=== PATIENT | male | born 1975 | race Two or more races ===

== ENCOUNTER 2023-03-29 19:54 | Observation (INO) ==
--- NOTE | 2023-03-29 20:54 | Emergency Department Note ---
Impression & Plan Encephalopathy, Chest pain, Depression, Anxiety ED Provider Note NAME: BI MENDIOLA AGE: 48 SEX: M : 1975 ARRIVES VIA: Ambulance INFORMANT: Patient, ED PROVIDER(S): John Anne MD CHIEF COMPLAINT: Outpatient referral MEDICAL DECISION MAKING: I had seen the patient earlier in the day for chest pain but the patient was sent back due to concern for disorientation. Patient already had blood work completed earlier today or today so CT of the head was obtained along with urinalysis. CT head is negative. Repeat blood work was not obtained at this time but an IV was established and the patient just had blood work completed during his most recent visit from earlier today. I did speak with the psychiatric facility at the [facility] and spoke with the charge nurse Jai explained that the physician onsite was not comfortable with taking care of the patient at this time given this reported disorientation. Discussion with the family states that he has been like this for 2 weeks and had a negative CT scan at [facility] prior to his transfer to the [facility]. Given the outside facilities inability to care for the patient for his mental wellness disease at this time I did speak with the on-call hospital service Dr. Plasencia the patient was admitted to the medicine service. Discussion w/ other healthcare providers: Dr. Plasencia inpatient medicine Prior /Outside records reviewed: I reviewed a psychiatry transfer form so that the patient's has a history of type 2 diabetes is disoriented concern for incontinence of stool. Referring physician was Dr. Macias. Differential diagnosis: Infection, dehydration, metabolic abnormality, hypo/hyperglycemia, electrolyte imbalance, anemia, UTI, pneumonia, thyroid dysfunction among others were considered. Diagnostics, as interpreted by me: ECG: None Cardiac monitoring: An order was placed for continuous cardiac monitoring. The monitor shows a rate of 95 with sinus rhythm. Patient was placed on pulse oximetry Medical decision rules: None Imaging studies: I informally interpreted the patient's CT head which does not show obvious ICH with formal report to follow. HPI: Patient presents due to concern for reported disorientation. I did obtain additional history from the charge nurse at the [facility] who stated that the on- call physician onsite thought the patient was disoriented and potentially has some slurred speech. I did discuss this with the family at bedside patient is able to answer all questions appropriately and states that this is a sister at the bedside which is correct. She states that he has been acting this way for approximately 2 weeks in duration ever since he was started on sertraline. Patient reportedly not taken this in several days though. No history of TIA or stroke. Patient does not use any alcohol or tobacco. Patient is currently voluntary 201 at the [facility] he was seen earlier today for chest pain was recently diagnosed with flu. Patient reportedly had been incontinent of stool upon returning to facility. Patient denies any back pain no numbness or tingling. PAST MEDICAL HISTORY: See Below PAST SURGICAL HISTORY: See Below SOCIAL HISTORY: See Below HOME MEDICATIONS: See Below ALLERGIES: See Below VITALS: See Below PHYSICAL EXAMINATION: GENERAL: NAD, non-toxic. Wearing glasses EYE EXAM: Normal conjunctiva. PERRL, no anisocoria and EOM's grossly intact w/o pain. OROPHARYNX: Moist mucus membranes, grossly normal dentition. NECK: Supple, no nuchal rigidity, no adenopathy, non-tender. No signs of meningismus. FROM of the neck with good chin to chest and neck extension. No stridor. LUNGS: Clear to auscultation. Normal chest wall mechanics. HEART: NSR, no MRG. ABDOMEN: Abdomen soft, non-tender, no masses, no rebound or guarding. BACK: No CVA TTP. SKIN: No rashes and no bruising. UPPER EXTREMITIES: Upper extremities are grossly normal. LOWER EXTREMITIES: Grossly normal, no edema. NEURO EXAM: A&O x3, cranial nerves II-XII grossly intact, normal speech, moves all 4 extremities. Good [id number], no drift and no sensory deficits. Past Med/Surg History Medical History Anxiety Depression Social History Smoking Status: Current every day smoker Tobacco Type: Cigarettes Hx Alcohol Use: No Hx Substance Use: Yes Substance Use Type Other:: current medical marijuana, former heroin user Preferred Language: Persian Communication Ability: Impaired Communication Ability Comment: Garbled speech Communication Tools: Facial Expression, Writing Tablet and Physical Gestures Peace Officer Required: Yes Beliefs That Will Affect Care: None Current Living Situation: Other Current Living Situation Comment: in trailer, with roommates Feels Safe at Home: Yes Assistive Devices: None Allergies Allergies Allergy/AdvReac Type Severity Reaction Status Date / Time risperidone Allergy Intermediate Hives Verified 03/29/23 22:35 lactose Allergy Unknown Verified 03/29/23 22:35 sertraline AdvReac Intermediate confusion Verified 03/30/23 01:37 Home Meds Home Medications Medication Instructions Recorded Confirmed buspirone 10 mg tablet 10 mg PO TID 03/29/23 03/29/23 metformin 500 mg tablet,extended 500 mg PO AMHS 03/29/23 03/29/23 release 24 hr pantoprazole 40 mg tablet,delayed 40 mg PO DAILY 03/29/23 03/29/23 release Previous Rx's Medication Instructions Recorded lisinopril 10 mg tablet 10 mg PO QAM 30 days #30 tabs 03/31/23 lorazepam 1 mg tablet 1 mg PO Q8 PRN Anxiety 5 days #15 03/31/23 tabs Results & Data (ED) Vital Signs Vital Signs - 24 hr 03/29/23 20:26 Temperature 36.7 C Temperature Source Temporal Artery Scan Pulse Rate 103 H Respiratory Rate 18 Respiratory Depth Normal Blood Pressure 155/102 H Blood Pressure Mean 119 Pulse Oximetry 95 Oxygen Delivery Method Room Air Sepsis Recent Fever Within 48 Hours No Sepsis New/Unexplained Change in Mental Status No Sepsis Action Taken by Nursing No Action Required Home Medications Current Medication List: was personally reviewed by me Laboratory Data Attestation: I reviewed the patient's lab results. 03/30/23 04:14 03/30/23 04:14 Lab Results 03/29/23 Range/Units 23:02 Magnesium 2.0 (1.7-2.4) mg/dl Ammonia 49.0 (18-72) umol/L Triglycerides 227 H (0-150) mg/dl Cholesterol 133 (0-200) mg/dl LDL Cholesterol, Calc 69 mg/dl VLDL Cholesterol, Calc 45 H (0-30) mg/dl HDL Cholesterol 19 mg/dl Cholesterol/HDL Ratio 7.0 H (0-5) TSH 1.986 (0.300-4.500) uIu/ml Administered Medications Discontinued Medications Acetaminophen (Acetaminophen 325 Mg Tab) 650 mg PO NOW STA Stop: 03/30/23 00:54 Last Admin: 03/30/23 01:52 Dose: 650 mg Documented By: WILMA Alprazolam (Alprazolam 0.5 Mg Tablet) 0.5 mg PO Q8H PRN PRN Reason: Anxiety/Agitation Stop: 04/30/23 12:48 Last Admin: 03/31/23 15:46 Dose: 0.5 mg Documented By: MIL Enoxaparin Sodium (Enoxaparin Inj 40 Mg/0.4 Ml Syr) 40 mg SQ QAM ADELINA Stop: 04/29/23 08:59 Last Admin: 03/31/23 08:07 Dose: 40 mg Documented By: Admin: 03/30/23 09:49 Dose: 40 mg Documented By: RAJIV Hydroxyzine HCl (Hydroxyzine Hcl 10 Mg Tab) 10 mg PO NOW STA Stop: 03/30/23 00:50 Last Admin: 03/30/23 01:52 Dose: 10 mg Documented By: WILMA Hydroxyzine HCl (Hydroxyzine Hcl 10 Mg Tab) 10 mg PO QID PRN PRN Reason: Anxiety Stop: 04/29/23 01:02 Last Admin: 03/31/23 11:27 Dose: 10 mg Documented By: MIL Sodium Chloride (Nss) 1,000 mls @ 999 mls/hr IV .Q1H1M ONE Stop: 03/29/23 22:23 Last Infusion: 03/29/23 23:58 Dose: Infused Documented By: Admin: 03/29/23 21:58 Dose: 999 mls/hr Documented By: WILMA Sodium Chloride (Nss) 1,000 mls @ 50 mls/hr IV .Q20H ONE Stop: 03/30/23 21:31 Last Infusion: 03/30/23 16:34 Dose: Infused Documented By: Infusion: 03/30/23 15:02 Dose: 50 mls/hr Documented By: Infusion: 03/30/23 14:32 Dose: 0 mls/hr Documented By: Admin: 03/30/23 01:54 Dose: 50 mls/hr Documented By: WILMA Insulin Aspart (Insulin Aspart Per Unit Charge) 0 units SC ACHS [facility] Stop: 04/29/23 02:28 Last Admin: 03/31/23 13:04 Dose: Not Given Documented By: Admin: 03/31/23 09:12 Dose: 4 units Documented By: MIL Co-signed By: NICCI Admin: 03/30/23 20:40 Dose: Not Given Documented By: Admin: 03/30/23 17:46 Dose: 2 units Documented By: LARA Co-signed By: FELISA Admin: 03/30/23 14:29 Dose: 1 units Documented By: LARA Co-signed By: FELISA Admin: 03/30/23 08:42 Dose: Not Given Documented By: Admin: 03/30/23 03:15 Dose: Not Given Documented By: MAR Co-signed By: MAR(2) Ioversol (Optiray 320 125ml) 125 ml IV ONCE ONE Stop: 03/29/23 23:57 Last Admin: 03/29/23 23:56 Dose: 117 ml Documented By: HARSH Lisinopril (Lisinopril 2.5 Mg Tab) [facility] Stop: 04/29/23 03:04 Last Admin: 03/30/23 04:42 Dose: 2.5 mg Documented By: MAR(2) Lisinopril (Lisinopril 10 Mg Tab) 10 mg [facility] Stop: 04/30/23 08:59 Last Admin: 03/31/23 08:07 Dose: 10 mg Documented By: MIL Melatonin (Melatonin 3 Mg Tab) 3 mg PO HS PRN PRN Reason: Sleep Stop: 04/29/23 00:20 Last Admin: 03/30/23 21:24 Dose: 3 mg Documented By: Admin: 03/30/23 02:17 Dose: 3 mg Documented By: WILMA Pantoprazole Sodium (Pantoprazole 40 Mg Tab) 40 mg PO DAILY [facility] Stop: 04/29/23 08:59 Last Admin: 03/31/23 08:07 Dose: 40 mg Documented By: Admin: 03/30/23 08:50 Dose: 40 mg Documented By: RAJIV Imaging Data Radiologist's Impression: Head CT 03/29/23 21:23 Exam(s): CT HEAD Without Contrast EXAM: CT Head Without Intravenous Contrast CLINICAL HISTORY: Reason for exam: disorientation. TECHNIQUE: Axial computed tomography images of the head/brain without intravenous contrast. CTDI is 36.38 mGy and DLP is 625.8 mGy-cm. Automated exposure control was utilized for the study. A dose lowering technique was utilized adhering to the principles of ALARA. COMPARISON: No relevant prior studies available. FINDINGS: No acute intracranial hemorrhage. No midline shift or mass effect. The territorial mohan-white matter differentiation is maintained throughout. The ventricles and sulci are commensurate with age. The visualized orbits appear grossly unremarkable. The calvarium is intact. The visualized paranasal sinuses and mastoid air cells are grossly clear. IMPRESSION: No acute intracranial hemorrhage, midline shift, or mass effect. Electronically signed by: William Weir MD 03/29/23 23:25 PM Abdomen/Pelvis CT 03/29/23 22:47 Exam(s): CT ABDOMEN + PELVIS With Contrast IV Amt: 117 ML OPTIRAY 320 EXAM: CT Abdomen and Pelvis With Intravenous Contrast CLINICAL HISTORY: Reason for exam: abd pain. TECHNIQUE: Axial computed tomography images of the abdomen and pelvis with intravenous contrast. CTDI is 28.14 mGy and DLP is 2371.77 mGy-cm. Automated exposure control was utilized for the study. A dose lowering technique was utilized adhering to the principles of ALARA. CONTRAST: Patient received 117 ML OPTIRAY 320 of IV contrast COMPARISON: No relevant prior studies available. FINDINGS: Lung bases: Unremarkable. No mass. No consolidation. ABDOMEN: Liver: Unremarkable. No mass. Gallbladder and bile ducts: Unremarkable. No calcified stones. No ductal dilation. Pancreas: Unremarkable. No mass. No ductal dilation. Spleen: Unremarkable. No splenomegaly. Adrenals: Unremarkable. No mass. Kidneys and ureters: Unremarkable. No solid mass. No hydronephrosis. Stomach and bowel: Diverticulosis, without acute diverticulitis. No bowel obstruction. PELVIS: Appendix: No findings to suggest acute appendicitis. Bladder: Unremarkable. No mass. Reproductive: Unremarkable as visualized. ABDOMEN and PELVIS: Intraperitoneal space: Unremarkable. No free air. No significant fluid collection. Bones/joints: No acute fracture. No dislocation. Bilateral pars defect at L5. Soft tissues: Small fat-containing bilateral inguinal hernias. Vasculature: Unremarkable. No abdominal aortic aneurysm. Lymph nodes: Unremarkable. No enlarged lymph nodes. IMPRESSION: No acute findings. Electronically signed by: William Weir MD 03/30/23 02:30 AM Chest CTA 03/29/23 23:12 Exam(s): CTA CHEST IV Amt: 117 ML OPTIRAY 320 EXAM: CT Angiography Chest With Intravenous Contrast CLINICAL HISTORY: Reason for exam: intermittent cp, tachycardia. TECHNIQUE: Axial computed tomographic angiography images of the chest with intravenous contrast. CTDI is 28.14 mGy and DLP is 2371.77 mGy-cm. Automated exposure control was utilized for the study. A dose lowering technique was utilized adhering to the principles of ALARA. MIP reconstructed images were created and reviewed. COMPARISON: No relevant prior studies available. FINDINGS: Pulmonary arteries: Unremarkable. No pulmonary embolism. Aorta: No acute findings. No thoracic aortic aneurysm. Lungs: Unremarkable. No mass. No consolidation. Pleural space: Unremarkable. No significant effusion. No pneumothorax. Heart: Unremarkable. No cardiomegaly. No significant pericardial effusion. No evidence of RV dysfunction. Bones/joints: No acute fracture. No dislocation. Soft tissues: Unremarkable. Lymph nodes: Unremarkable. No enlarged lymph nodes. Liver: Hepatic steatosis. IMPRESSION: No acute findings in the visualized arteries of the chest. Electronically signed by: William Weir MD 03/30/23 01:56 AM Brain MRI 03/30/23 00:49 Exam(s): MRI HEAD Without Contrast EXAM: MR Head Without Intravenous Contrast CLINICAL HISTORY: Reason for exam: transient aphasia. TECHNIQUE: Magnetic resonance images of the head/brain without intravenous contrast in multiple planes. COMPARISON: Comparison made to prior head CT from March 29, 2023. FINDINGS: Brain: Unremarkable. No mass. No hemorrhage. No acute infarct. The flow voids at the base of the brain intact. Ventricles: Unremarkable. No ventriculomegaly. Bones/joints: Unremarkable. No acute fracture. Sinuses: Chronic ethmoid sinusitis. No acute sinusitis. Mastoid air cells: Unremarkable as visualized. No mastoid effusion. Orbits: Unremarkable as visualized. IMPRESSION: No evidence of acute intracranial pathology. Electronically signed by: Liliya Nieves MD 03/30/23 02:45 AM Head MRA 03/30/23 00:49 Exam(s): MRA HEAD Without Contrast EXAM: MR Angiography Head Without Intravenous Contrast CLINICAL HISTORY: Reason for exam: transient aphasia. TECHNIQUE: Magnetic resonance angiography images of the head without intravenous contrast. COMPARISON: No relevant prior studies available. FINDINGS: Right internal carotid artery: No acute findings. Intracranial segment is patent with no significant stenosis. No aneurysm. Right anterior cerebral artery: Unremarkable. No occlusion or significant stenosis. No aneurysm. Right middle cerebral artery: Unremarkable. No occlusion or significant stenosis. No aneurysm. Right posterior cerebral artery: Unremarkable. No occlusion or significant stenosis. No aneurysm. Right vertebral artery: Unremarkable as visualized. Left internal carotid artery: No acute findings. Intracranial segment is patent with no significant stenosis. No aneurysm. Left anterior cerebral artery: Unremarkable. No occlusion or significant stenosis. No aneurysm. Left middle cerebral artery: Unremarkable. No occlusion or significant stenosis. No aneurysm. Left posterior cerebral artery: Unremarkable. No occlusion or significant stenosis. No aneurysm. Left vertebral artery: Unremarkable as visualized. Basilar artery: Unremarkable. No occlusion or significant stenosis. No aneurysm. IMPRESSION: Negative MRA of the brain. Electronically signed by: Liliya Nieves MD 03/30/23 02:40 AM Discharge Plan Visit Data Chief Complaint: Illness Stated Complaint: [facility] WANTED HIM SENT BACK ED Provider: John Anne Discharge Problem: Encephalopathy, Chest pain, Depression, Anxiety Patient Disposition: Admitted As Inpatient Discharge Instructions Interventions: ED Discharge Assessment Last Done: 03/30/23 02:28 Discharge Problem: Chest pain Qualifiers: Chest pain type: unspecified Qualified Code(s): R07.9 - Chest pain, unspecified Depression Qualifiers: Depression Type: unspecified Qualified Code(s): F32.A - Depression, unspecified
[2023-03-29] MEDS: SODIUM CHLORIDE 0.9% 1,000 ML IV ONE (21:58)
--- NOTE | 2023-03-29 23:26 | CT Scan Report ---
Exam(s): CT HEAD Without Contrast EXAM: CT Head Without Intravenous Contrast CLINICAL HISTORY: Reason for exam: disorientation. TECHNIQUE: Axial computed tomography images of the head/brain without intravenous contrast. CTDI is 36.38 mGy and DLP is 625.8 mGy-cm. Automated exposure control was utilized for the study. A dose lowering technique was utilized adhering to the principles of ALARA. COMPARISON: No relevant prior studies available. FINDINGS: No acute intracranial hemorrhage. No midline shift or mass effect. The territorial mohan-white matter differentiation is maintained throughout. The ventricles and sulci are commensurate with age. The visualized orbits appear grossly unremarkable. The calvarium is intact. The visualized paranasal sinuses and mastoid air cells are grossly clear. IMPRESSION: No acute intracranial hemorrhage, midline shift, or mass effect. Electronically signed by: William Weir MD 03/29/23 23:25 PM
[2023-03-29 23:51] LABS: Thyroid Stimulating Hormone 1.986 uIu/ml (0.300-4.500)
[2023-03-29] MEDS: OPTIRAY 320 125ml IV ONE (23:56)
--- NOTE | 2023-03-30 00:53 | History & Physical Report ---
Date of Service March 30, 2023 Assessment & Plan (1) Encephalopathy: Plan: Multifactorial: new neuropsychotropic medications (buspirone and sertraline) for mood disorder Uncontrolled hypertension, patient not on maintenance medications Parainfluenza illness Chest pain likely from uncontrolled hypertension and anxiety Diarrheal illness possibly from parainfluenza, home metformin possibly contributory DM 2 on oral medications, suboptimal control as of recent hemoglobin A1c of 7.17 September 2022 HCV status post Rx Subclinical hypothyroidism, TSH noted to be 7.5 from recent [facility] ER visit past history of substance abuse ongoing tobacco abuse OBS Medical telemetry Hold buspirone for now. Patient family adamantly refusing sertraline prescription. Psych consult re: suboptimal anxiety/depression Initiate lisinopril for BP control TTE Re: Chest pain Stool cultures, C. difficile IVF, supportive management for viral illness Basal bolus insulin, ISS BG goal 1 10-1 40, carb count coverage, update hemoglobin A1c Recheck TSH next month Nicotine patch as needed DVT prophylaxis with Lovenox subcu Full code Patient's sister requesting updates providers. Ms. Tammie Maynard, contact #[phone]. Text document was generated using Me-Mover voice recognition software. It may contain grammatical or spelling errors. Kindly contact undersigned for clarification of any documentation item in question. History of Present Illness Chief Complaint: Disorientation as per records Primary Care Provider: Venecia Cabrera PA-C History obtained from patient, family, and records. Medical history significant for hypertension, hyperlipidemia, [place], DM 2 on oral medications, HCV status post Rx, mood disorder, past history of substance abuse, ongoing tobacco abuse. 03/18 Patient seen at PCPs office for worsening depression in the last 3 weeks. Feeling anxious all the time. Patient denies suicidality. Intermittent chest pain and abdominal complaints separate from each other. Watery diarrhea. No fever, no chills. Patient started on sertraline by outpatient provider. 03/19-03/20 Overnight observation at [facility] ER for anxiety/panic attack. TSH noted to be elevated at 7.5. Patient prescribed as needed Ativan prescription. PCP later added BuSpar 3 times daily to regimen after patient requested for additional Ativan prescription. Increased agitation/trouble focusing with new medications as per patient family. Patient's sister attributes problem to sertraline. Patient not being able to get words out. Sertraline discontinued by patient/family. 03/28 Patient directed to [facility] ER by PCP's office for manic behavior, increased agitation/anxiety, not being able to communicate since ER visit a week ago. Cannabis noted on urine drug screen. Parainfluenza noted on viral screen. Patient transferred to the local [facility]. Patient sent to the [facility] ER for evaluation yesterday from the [facility] for chest pain and disorientation complaints. Patient subsequently discharged back to facility. Increased disorientation noted at psychiatric facility. Patient complaining of worsening abdominal pain. SBP 160s, heart rate 110s. Patient brought back to ER for evaluation. Mentation somewhat improved after IV fluids administered at the ER as per sister. Medical History as above Surgical History : Liver biopsy Family History : Cirrhosis, heart disease Personal/Social history : 1 pack daily, occasional EtOH intake, disabled Allergies Allergy/AdvReac Type Severity Reaction Status Date / Time risperidone Allergy Intermediate Hives Verified 03/29/23 22:35 lactose Allergy Unknown Verified 03/29/23 22:35 sertraline AdvReac Intermediate confusion Verified 03/30/23 01:37 Home Medications Medication Instructions Recorded Confirmed Type buspirone 10 mg tablet 10 mg PO TID 03/29/23 03/29/23 History lorazepam 1 mg tablet 1 mg PO Q8 PRN Anxiety 03/29/23 03/29/23 History metformin 500 mg tablet,extended 500 mg PO AMHS 03/29/23 03/29/23 History release 24 hr pantoprazole 40 mg tablet,delayed 40 mg PO DAILY 03/29/23 03/29/23 History release sertraline 50 mg tablet 50 mg PO QAM 03/29/23 03/29/23 History Past Med/Surg History Social History Smoking Status: Current every day smoker Tobacco Type: Cigarettes Hx Alcohol Use: No Hx Substance Use: Yes Substance Use Type Other:: current medical marijuana, former heroin user Preferred Language: Tanzanian Communication Ability: Impaired Communication Ability Comment: Dontae speech Floor Installer Required: Yes Beliefs That Will Affect Care: None Current Living Situation: Other Current Living Situation Comment: in trailer, with roommates Other Information That Helps Us Care for You: No Feels Safe at Home: Yes Safety Concerns: Feels Safe At This Time Assistive Devices: None Review of Systems Review of Systems: As per HPI, all other systems reviewed and negative Physical Exam Physical Exam: GENERAL: Morbidly obese, anxious, older than stated age, oriented but speech somewhat slow, no respiratory distress SKIN: Normal color, warm HEENT: [place] palpebral conjunctivae, no ptosis, dry buccal mucosa NECK : Supple, short neck, no tenderness CHEST : Decreased breath sounds, no tenderness HEART : RRR, no obvious murmurs ABDOMEN: Some distention, nontender EXTREMITIES : Minimal LE swelling/tenderness, no other conspicuous deformities noted NEUROLOGIC : Coherent, no facial asymmetry, speech somewhat slow and stuttering, gait and stance not assessed Results & Data Results & Data Vital Signs (Past 12 Hours) Vital Signs Temp Pulse Pulse Resp BP BP Pulse Ox 03/30/23 00:13 76 18 163/98 H 97 03/29/23 21:59 86 20 147/95 H 96 03/29/23 20:26 36.7 C 103 H 18 155/102 H 95 O2 Del Method 03/30/23 00:13 Room Air 03/29/23 21:59 Room Air 03/29/23 20:26 Room Air Laboratory Results Laboratory Results Magnesium 2.0 mg/dl (1.7-2.4) 03/29/23 23:02 Ammonia 49.0 umol/L (18-72) 03/29/23 23:02 Triglycerides 227 mg/dl (0-150) H 03/29/23 23:02 Cholesterol 133 mg/dl (0-200) 03/29/23 23:02 LDL Cholesterol, Calc 69 mg/dl 03/29/23 23:02 VLDL Cholesterol, Calc 45 mg/dl (0-30) H 03/29/23 23:02 HDL Cholesterol 19 mg/dl 03/29/23 23:02 Cholesterol/HDL Ratio 7.0 (0-5) H 03/29/23 23:02 TSH 1.986 uIu/ml (0.300-4.500) 03/29/23 23:[address] 03/29/23 21:23 Exam(s): CT HEAD Without Contrast EXAM: CT Head Without Intravenous Contrast CLINICAL HISTORY: Reason for exam: disorientation. TECHNIQUE: Axial computed tomography images of the head/brain without intravenous contrast. CTDI is 36.38 mGy and DLP is 625.8 mGy-cm. Automated exposure control was utilized for the study. A dose lowering technique was utilized adhering to the principles of ALARA. COMPARISON: No relevant prior studies available. FINDINGS: No acute intracranial hemorrhage. No midline shift or mass effect. The territorial mohan-white matter differentiation is maintained throughout. The ventricles and sulci are commensurate with age. The visualized orbits appear grossly unremarkable. The calvarium is intact. The visualized paranasal sinuses and mastoid air cells are grossly clear. IMPRESSION: No acute intracranial hemorrhage, midline shift, or mass effect. Electronically signed by: William Weir MD 03/29/23 23:[address] chest : No acute findings in the visualized arteries of the chest. CT abdomen: No acute findings Brain MRI: No evidence of acute intracranial pathology. Brain MRA: Negative MRA of the brain. Diagnostic Findings EKG as per my interpretation : Rate 100, NSR, normal axis, no ischemia
[2023-03-30] MEDS ORDERED: PROMETHAZINE HCL 12.5 MG in SODIUM CHLORIDE 0.9% 50 ML IV PRN (01:03)
[2023-03-30] MEDS: hydrOXYzine HCl 10 MG TAB PO STA (01:52)
[2023-03-30] MEDS: ACETAMINOPHEN 325 MG TAB PO STA (01:52)
[2023-03-30] MEDS: SODIUM CHLORIDE 0.9% 1,000 ML IV ONE (01:54)
--- NOTE | 2023-03-30 01:56 | CT Scan Report ---
Exam(s): CTA CHEST IV Amt: 117 ML OPTIRAY 320 EXAM: CT Angiography Chest With Intravenous Contrast CLINICAL HISTORY: Reason for exam: intermittent cp, tachycardia. TECHNIQUE: Axial computed tomographic angiography images of the chest with intravenous contrast. CTDI is 28.14 mGy and DLP is 2371.77 mGy-cm. Automated exposure control was utilized for the study. A dose lowering technique was utilized adhering to the principles of ALARA. MIP reconstructed images were created and reviewed. COMPARISON: No relevant prior studies available. FINDINGS: Pulmonary arteries: Unremarkable. No pulmonary embolism. Aorta: No acute findings. No thoracic aortic aneurysm. Lungs: Unremarkable. No mass. No consolidation. Pleural space: Unremarkable. No significant effusion. No pneumothorax. Heart: Unremarkable. No cardiomegaly. No significant pericardial effusion. No evidence of RV dysfunction. Bones/joints: No acute fracture. No dislocation. Soft tissues: Unremarkable. Lymph nodes: Unremarkable. No enlarged lymph nodes. Liver: Hepatic steatosis. IMPRESSION: No acute findings in the visualized arteries of the chest. Electronically signed by: William Weir MD 03/30/23 01:56 AM
[2023-03-30 02:12] LABS: Appearance Urine Clear (Clear); Bacteria Urine Automated Negative (Negative); Bilirubin Urine Negative (Negative); Blood Urine Negative (Negative); Cast Urine Automated 0 /lpf (0-5); Color Urine Yellow; Epithelial Cell Urine Auto 0-5 /lpf (0-5); Glucose Urine UA Negative (Negative); Ketones Urine Negative (Negative); Leukocyte Esterase Urine Negative (Negative); Nitrite Urine Negative (Negative); Protein Urine Trace (Negative); RBC Urine Automated 0-4 /hpf (0-4); Specific Gravity Urine > 1.045 (1.000-1.030); Urobilinogen Urine Negative (Negative); pH Urine 5.5 (4.5-7.5)
[2023-03-30] MEDS: MELATONIN 3 MG TAB PO PRN (02:17)
[2023-03-30 02:28] LABS: Amphetamines+Metham, Urine Neg (Neg); Barbiturates, Urine Neg (Neg); Benzodiazepine, Urine Neg (Neg); Cocaine, Urine Neg (Neg); MDMA (Ecstacy), Urine Neg (Neg); Marijuana, Urine Neg (Neg); Methadone, Urine Neg (Neg); Opiate, Urine Neg (Neg); Phencyclidine, Urine Neg (Neg)
[2023-03-30] MEDS ORDERED: CARBOHYDRATES FOR HYPOGLYCEMIA PO PRN (02:29)
[2023-03-30] MEDS ORDERED: GLUCOSE 40% GEL 15 GM TUBE PO PRN (02:29)
[2023-03-30] MEDS ORDERED: GLUCAGON FOR INJ 1 MG VIAL SQ PRN (02:29)
[2023-03-30] MEDS ORDERED: GLUCOSE 10 TAB/TUBE PO PRN (02:29)
[2023-03-30] MEDS ORDERED: DEXTROSE 50% 50 ML SYRINGE IV PRN (02:29)
--- NOTE | 2023-03-30 02:31 | CT Scan Report ---
Exam(s): CT ABDOMEN + PELVIS With Contrast IV Amt: 117 ML OPTIRAY 320 EXAM: CT Abdomen and Pelvis With Intravenous Contrast CLINICAL HISTORY: Reason for exam: abd pain. TECHNIQUE: Axial computed tomography images of the abdomen and pelvis with intravenous contrast. CTDI is 28.14 mGy and DLP is 2371.77 mGy-cm. Automated exposure control was utilized for the study. A dose lowering technique was utilized adhering to the principles of ALARA. CONTRAST: Patient received 117 ML OPTIRAY 320 of IV contrast COMPARISON: No relevant prior studies available. FINDINGS: Lung bases: Unremarkable. No mass. No consolidation. ABDOMEN: Liver: Unremarkable. No mass. Gallbladder and bile ducts: Unremarkable. No calcified stones. No ductal dilation. Pancreas: Unremarkable. No mass. No ductal dilation. Spleen: Unremarkable. No splenomegaly. Adrenals: Unremarkable. No mass. Kidneys and ureters: Unremarkable. No solid mass. No hydronephrosis. Stomach and bowel: Diverticulosis, without acute diverticulitis. No bowel obstruction. PELVIS: Appendix: No findings to suggest acute appendicitis. Bladder: Unremarkable. No mass. Reproductive: Unremarkable as visualized. ABDOMEN and PELVIS: Intraperitoneal space: Unremarkable. No free air. No significant fluid collection. Bones/joints: No acute fracture. No dislocation. Bilateral pars defect at L5. Soft tissues: Small fat-containing bilateral inguinal hernias. Vasculature: Unremarkable. No abdominal aortic aneurysm. Lymph nodes: Unremarkable. No enlarged lymph nodes. IMPRESSION: No acute findings. Electronically signed by: William Weir MD 03/30/23 02:30 AM
--- NOTE | 2023-03-30 02:42 | Magnetic Resonance Report ---
Exam(s): MRA HEAD Without Contrast EXAM: MR Angiography Head Without Intravenous Contrast CLINICAL HISTORY: Reason for exam: transient aphasia. TECHNIQUE: Magnetic resonance angiography images of the head without intravenous contrast. COMPARISON: No relevant prior studies available. FINDINGS: Right internal carotid artery: No acute findings. Intracranial segment is patent with no significant stenosis. No aneurysm. Right anterior cerebral artery: Unremarkable. No occlusion or significant stenosis. No aneurysm. Right middle cerebral artery: Unremarkable. No occlusion or significant stenosis. No aneurysm. Right posterior cerebral artery: Unremarkable. No occlusion or significant stenosis. No aneurysm. Right vertebral artery: Unremarkable as visualized. Left internal carotid artery: No acute findings. Intracranial segment is patent with no significant stenosis. No aneurysm. Left anterior cerebral artery: Unremarkable. No occlusion or significant stenosis. No aneurysm. Left middle cerebral artery: Unremarkable. No occlusion or significant stenosis. No aneurysm. Left posterior cerebral artery: Unremarkable. No occlusion or significant stenosis. No aneurysm. Left vertebral artery: Unremarkable as visualized. Basilar artery: Unremarkable. No occlusion or significant stenosis. No aneurysm. IMPRESSION: Negative MRA of the brain. Electronically signed by: Liliya Nieves MD 03/30/23 02:40 AM
--- NOTE | 2023-03-30 02:46 | Magnetic Resonance Report ---
Exam(s): MRI HEAD Without Contrast EXAM: MR Head Without Intravenous Contrast CLINICAL HISTORY: Reason for exam: transient aphasia. TECHNIQUE: Magnetic resonance images of the head/brain without intravenous contrast in multiple planes. COMPARISON: Comparison made to prior head CT from March 29, 2023. FINDINGS: Brain: Unremarkable. No mass. No hemorrhage. No acute infarct. The flow voids at the base of the brain intact. Ventricles: Unremarkable. No ventriculomegaly. Bones/joints: Unremarkable. No acute fracture. Sinuses: Chronic ethmoid sinusitis. No acute sinusitis. Mastoid air cells: Unremarkable as visualized. No mastoid effusion. Orbits: Unremarkable as visualized. IMPRESSION: No evidence of acute intracranial pathology. Electronically signed by: Liliya Nieves MD 03/30/23 02:45 AM
[2023-03-30] MEDS: INSULIN ASPART PER UNIT CHARGE SC SCH (03:15)
--- OUTSIDE RECORDS SUMMARY | 2023-03-30 03:39 | External Medical Summary ---
Author Name Unknown Address Unknown Organization [id number]:LABORATORY [facility] - [address] [place] [phone] Laboratory Report Ordering Provider Test Date Status RITIKA MCDONALD 03/20/2023 01:03:44 Fin al Observation Date Value Abnormality Reference (Units ) Status WBC, Total 03/20/2023 01:03:44 16.12 Above high normal 4 .00-10.80 (K/uL) Final RBC 03/20/2023 01:03:44 5.59 4.50-5.25 (M/uL) Final Hemoglobin 03/20/2023 01:03:44 16.4 14.0-16.8 (g/dL) Final HCT 03/20/2023 01:03:44 48.2 40.0-48.4 (%) Final MCV 03/20/2023 01:03:44 86.2 82.0-99.5 (fL) Final MCH 03/20/2023 01:03:44 29.3 27.0-34.0 (pg) Final MCHC 03/20/2023 01:03:44 34.0 32.0-36.0 (g/dL) Final RDW 03/20/2023 01:03:44 13.4 11.5-15.5 (%) Final Platelets 03/20/2023 01:03:44 299 140-400 (K /uL) Final MPV 03/20/2023 01:03:44 10.0 6.6-11.1 ( fL) Final Performing Location LABORATORY [facility] - [address] [place] [id number]
--- OUTSIDE RECORDS SUMMARY | 2023-03-30 03:39 | External Medical Summary ---
Author Name Unknown Address Unknown Organization K1G:LABORATORY [facility] - [address] [facility] [id number] Laboratory Report Ordering Provider Test Date Status RITIKA MCDONALD 03/20/2023 01:03:44 Fin al Observation Date Value Abnormality Reference (Units ) Status BUN 03/20/2023 01:03:44 11 6-20 (mg/dL) Final Creatinine 03/20/2023 01:03:44 0.7 0.6-1.2 (mg/dL) Final Glomerular filtration rate/1.73 sq M.predicted [Volume Rate/Area] in Serum, Plasma or Blood by Creatinine-based formula (CKD-EPI) 03/20/2023 01:03:44 >90 >=60 (mL/min) Final eGFR is calculated based on the CKD-EPI 2020 equation SODIUM 03/20/2023 01:03:44 136 135-146 (m mol/L) Final Potassium 03/20/2023 01:03:44 4.0 3.5-5.1 (m mol/L) Final Cl 03/20/2023 01:03:44 103 98-107 (mm ol/L) Final CO2 03/20/2023 01:03:44 22 22-32 (mmo l/L) Final Anion gap 03/20/2023 01:03:44 11 7-15 (mmol /L) Final Glucose 03/20/2023 01:03:44 109 70-120 (mg /dL) Final Albumin 03/20/2023 01:03:44 4.0 3.8-5.0 (g /dL) Final AST (Aspartate aminotransferase) 03/20/2023 01:03:44 17 10-50 (U/L) Final Alk Phos 03/20/2023 01:03:44 113 35-130 (U/ L) Final Bilirubin, Total 03/20/2023 01:03:44 0.2 <=1 .2 (mg/dL) Final Calcium 03/20/2023 01:03:44 9.6 8.4-10.2 ( mg/dL) Final Protein 03/20/2023 01:03:44 7.3 6.0-8.3 (g /dL) Final ALT (Alanine aminotransferase) 03/20/2023 01:03:44 19 10-50 (U/L) Final Performing Location LABORATORY [facility] - [address] [place] [phone]
--- OUTSIDE RECORDS SUMMARY | 2023-03-30 03:39 | External Medical Summary ---
Author Name Unknown Address Unknown Organization K1G:LABORATORY [facility] - [address] [place] [phone] Laboratory Report Ordering Provider Test Date Status ELMER WU 03/29/2023 07:46:15 Final Observation Date Value Abnormality Reference (Units ) Status Glucose Point of Care 03/29/2023 07:46:15 116 70-120 (mg/dL) Final Performing Location LABORATORY [facility] - [address] [facility] [id number]
--- OUTSIDE RECORDS SUMMARY | 2023-03-30 03:39 | External Medical Summary | Summary of Care ---
Author Name Unknown Organization [facility] Address [address] [place] [address] Phone [phone] Care Team Providers Care Manufacturer Agent Name Role Phone Venecia Cabrera PA-C Primary Care Provider Reason for Visit * Reason Comments Depression Sleeping issues, angie rrhea Encounter Details Date Type Department Care Team ([facility] st Contact Info) Description 03/18/2023 2:20 PM EST Office Visit [facility] [address] [place], [place] [phone] Epifanio Stoner PA-C [address], [place] [phone] Current moderate episode of major depressive disorder, unspecified whether recurrent (HCC)* Allergies Active Allergy Reactions Criticality Noted Date Comments Lactose 01/11/2007 Risperidone Medium 05/25/2018 Other reaction(s): Hives / Urticaria, weak in legs documented as of this encounter (statuses as of 03/18/2023) Medications Medication Sig Dispensed Refills Start Date End Date Status Cyclobenzaprine HCl 5 MG Oral Tablet (Flexeril)Indicat ions:Acute left-sided low back pain with left-sided sciatica 1-2 tabs 3 times a day for back pain 45 Tablet 0 05/07/2022 Active Additional Information Patient not taking.Reported on 03/18/2023 metFORMIN HCl ER 500 MG Oral Tablet Extended Release 24 Hour (Glucophage XR) Take 1 Tablet by mouth in the morning and 1 Tablet before bedtime. 180 Tablet 3 03/14/2023 Active OneTouch Verio In Vitro Strip (Glucose Blood) Use up to 4 times a day E11.9 100 Strip 11 03/14/2023 Active Pantoprazole Sodium 40 MG Oral Tablet Delayed Release (Protonix) Take 1 Tablet by mouth in the morning. 0 03/17/2023 Active Sertraline HCl 50 MG Oral Tablet (Zoloft)Indicatio ns:Current moderate episode of major depressive disorder, unspecified whether recurrent (HCC) Take 1 Tablet by mouth in the morning. 30 Tablet 5 03/18/2023 Active Promethazine-DM 6.25-15 MG/5ML Oral SyrupIndications: Bronchitis, complicated Take 5 mL by mouth 4 times a day as needed for Cough. 120 mL 1 01/06/2023 3 Discontinue d(Medicatio n List Clean Up) methylPREDNISolon e 4 MG Oral Tablet Therapy Pack (Medrol Dosepack)Indicati ons:Bronchitis, complicated follow package directions 21 Tablet 0 01/06/2023 3 Discontinue d(Medicatio n List Clean Up) documented as of this encounter (statuses as of 03/18/2023) Active Problems Problem Noted Date Diagnosed Date Body mass index (BMI) of 45.0 to 49.9 in adult 0 06/21/2022 Overview: Per Obesity protocol Mixed hyperlipidemia 05/27/2022 Morbid obesity due to excess calories 05/13/2021 Tobacco abuse 05/13/2021 Neck pain 05/13/2021 Chronic low back pain with left-sided sciatica 0 05/13/2021 Essential hypertension with goal blood pressure less than 140/90 05/13/2021 Type 2 diabetes mellitus wit h hemoglobin A1c goal of less than 7.0% 05/13/2021 Obstructive sleep apnea of adult 05/13/2021 Diabetes mellitus without complication 2 documented as of this encounter (statuses as of 03/18/2023) Immunizations Name Administration Dates Next Due Hepatitis B Vaccine, Recombi nant, Adjuvanted, 20 mcg/mL (Heplisav-B) 08/25/2022,06/16/2022 Hepatitis B, 20+ yrs 06/16/2022 documented as of this encounter Social History Tobacco Use Types Packs/Day Years Used Date Smoking Tobacco: Every Day Passive Smoke Exposure: Current Smokeless Tobacco: Former Chew Alcohol Use Standard Drinks/Week Comments Yes 0 (1 standard drink = 0.6 oz pur e alcohol) occasional AUDIT-C Answer Date Recorded Q1: How often do you have a drink containing alc ohol? 2-4 times a month 01/12/2021 Q2: How many drinks containi ng alcohol do you have on a typical day when you are drinking? 10 or more 01/12/2021 Q3: How often do you have si x or more drinks on one occasion? Weekly 01/12/2021 Hunger Vital Sign Answer Date Recorded Within the past 12 months, y ou worried that your food would run out before you got the money to buy more. Patient refused Within the past 12 months, t he food you bought just didn't last and you didn't have money to get more. Patient refused Sex and Gender Information Value Date Recorded Sex Assigned at Male 03/10/2023 2:34 PM EST Gender Identity Male 03/10/2023 2:34 PM EST Sexual Orientation Straight 03/10/2023 2: 34 PM EST Job Start Date Occupation Industry Not on file Not on file Not on file documented as of this encounter Last Filed Vital Signs Vital Sign Reading Time Taken Comments Blood Pressure 148/86 03/18/2023 2:35 PM EST Pulse 110 03/18/2023 2:35 PM EST Temperature 36.6 C (97.8 F) 03/18/2023 2:35 PM ES T Respiratory Rate 20 03/18/2023 2:35 PM EST Oxygen Saturation 95% 03/18/2023 2:35 PM EST Inhaled Oxygen Concentration - - Weight 141.2 kg (311 lb 3.2 oz) 03/18/2023 2:35 PM EST Height 175.3 cm (5' 9") 03/18/2023 2:35 PM EST Body Mass Index 45.96 03/18/2023 2:35 PM EST documented in this encounter Progress Notes * Epifanio Stoner PA-C - 03/18/2023 2:58 PM EST Subjective Wilman Maynard is a 47 year old male. Chief Complaint Patient presents with Depression Sleeping issues, diarrhea HPI:47 year old with h/o depression. On chronic disability for same and on no medication presents staing increased depressive symptoms over the past 2-3 weeks.Denies insomnia or hypersomnia, + anhedonia denies difficulty with adls or concentrating. Feel s anxious all the time Denies suicidal ideation Depression PMH: Patient Active Problem List Diagnosis Code Morbid obesity due to excess calories ([facility]) E66.01 Tobacco abuse Z72.0 Neck pain M54.2 Chronic low back pain with left-sided sciatica M54.42, G89.29 Essential hypertension with goal blood pressure less than 140/90 I10 Type 2 diabetes mellitus with hemoglobin A1c goal of less than 7.0% ([facility]) E11.9 Obstructive sleep apnea of adult G47.33 Diabetes mellitus without complication ([facility]) E11.9 Mixed hyperlipidemia E78.2 Body mass index (BMI) of 45.0 to 49.9 in adult ([facility]) Z68.42 Current Outpatient Medications Medication Sig Dispense Refill metFORMIN HCl ER 500 MG Oral Tablet Extended Release 24 Hour (Glucophage XR) Take 1 Tablet by mouthin the morning and 1 Tablet before bedtime. 180 Tablet 3 Pantoprazole Sodium 40 MG Oral Tablet Delayed Release (Protonix) Take 1 Tablet by mouth in the morning. Cyclobenzaprine HCl 5 MG Oral Tablet (Flexeril) 1-2 tabs 3 times a day for back pain (Patient not taking: Reported on 03/18/2023) 45 Tablet 0 OneTouch Verio In Vitro Strip (Glucose Blood) Use up to 4 times a day E11.9 100 Strip 11 No current facility-administered medications for this visit. Review of patient's allergies indicates: Allergen Reactions Risperidone Other reaction(s): Hives / Urticaria, weak in legs Lactose Review of Systems Constitutional: Negative for activity change, appetite change, chills, diaphoresis, fatigue, fever and unexpected weight change. HENT: Negative. Eyes: Negative. Respiratory: Negative. Cardiovascular: Negative. Endocrine: Negative. Psychiatric/Behavioral: Positive for depression. Objective BP 148/86 (BP Site: Left Arm, BP Position: Sitting, BP Cuff Size: Large) | Pulse 110 | Temp 36.6 C (97.8 F) (Tympanic) | Resp 20 | Ht 1.753 m (5' 9") | Wt (!) 141.2 kg (311 lb 3.2 oz) | SpO2 95% | BMI 45.96 kg/m | BSA 2.62 m Physical Exam Constitutional: Appearance: He is obese. HENT: Head: Normocephalic and atraumatic. Nose: Nose normal. Eyes: Extraocular Movements: Extraocular movements intact. Pupils: Pupils are equal, round, and reactive to light. Pulmonary: Effort: Pulmonary effort is normal. Breath sounds: Normal breath sounds. Abdominal: General: Abdomen is flat. Palpations: Abdomen is soft. Musculoskeletal: General: Normal range of motion. Cervical back: Normal range of motion and neck supple. Skin: General: Skin is warm and dry. Capillary Refill: Capillary refill takes less than 2 seconds. ASSESSMENT/PLAN: There are no diagnoses linked to this encounter. Epifanio Stoner PA-C documented in this encounter Nursing Notes * Ayaka Miranda MED ASSIST - 03/18/2023 2:37 PM EST Patient presents today for depression, sleeping issues and diarrhea. Patient has been verbally educated on the need or importance of Immunizations: flu vaccine. CANDI Maldonado documented in this encounter Plan of Treatment Upcoming Encounters Date Type Department Care Team (Late st Contact Info) Description 03/24/2023 7:10 AM EST Pharmacy Hepatology, [facility] [address] [place] [address] [place], Pharmacist Hepatology [address] [place] [address] 04/13/2023 10:40 AM EST Office Visit [facility] [address] [place] [address] Venecia Cabrera PA-C [address] [place] [address] Health Maintenance Due Date Last Done Comments DISCUSS TOBACCO CESSATION (REFER TO SMARTSET #5288) 1974 COVID-19 Vaccine (#1) 1974 Pneumococcal Vaccine: Pediatrics (0 to 5 Years) and At-Risk Patients (6 to 64 Years) (1 - PCV) 1980 Depression Screening 1986 Diabetic Eye Exam 1992 Diabetic Foot Exam 1992 DTaP,Tdap,and Td Vaccines (1 - Tdap) 1993 Cologuard 2019 Colonoscopy 2019 Colorectal Cancer Screening 2019 Fecal Occult Blood Test 2019 Sigmoidoscopy 2019 Influenza Vaccine (FLU shot) (#1) 2022 HbA1c 03/22/2023 09/20/2022, 05/27/2022 Albumin/Creatinine Ratio 05/27/2023 05/27/2022 GFR 07/13/2023 07/12/2022, 05/27/2022, 11/06/2020 Lipid Panel 05/27/2027 05/27/2022 Hepatitis B Completed 08/25/2022, 06/16/2022, 06/16/2022 GARDASIL-HPV IMMUNIZATION SERIES Aged Out No longer eligible b ased on patient's age to complete this topic MENINGOCOCCAL (MENACTRA/MENVEO) Aged Out No longer eligible b ased on patient's age to complete this topic documented as of this encounter Medical Devices Not on filedocumented as of this encounter Visit Diagnoses Diagnosis Current moderate episode of major depressive disorder, unspecified whether recurrent (HCC)- Primary documented in this encounter Care Teams Manufacturer Agent Relationship Specialty Start Date End Date Venecia Cabrera PA-C [address] [place] [address] PCP - General Physician Obstetrics Gyn Physician 05/27/22 documented as of this encounter
--- OUTSIDE RECORDS SUMMARY | 2023-03-30 03:39 | External Medical Summary ---
Author Name Unknown Address Unknown Organization K1G:LABORATORY [facility] - [facility] [address] Laboratory Report Ordering Provider Test Date Status RITIKA MCDONALD 03/20/2023 01:03:44 Fin al Observation Date Value Abnormality Reference (Units ) Status Ethanol 03/20/2023 01:03:44 Negative Negative Final Performing Location LABORATORY [facility] - [address] [facility] [address]
--- OUTSIDE RECORDS SUMMARY | 2023-03-30 03:39 | External Medical Summary ---
Author Name Unknown Address Unknown Organization K1G:LABORATORY [facility] - [address] [place] [id number] Laboratory Report Ordering Provider Test Date Status ELMER WU 03/28/2023 16:47:58 Final Observation Date Value Abnormality Reference (Units ) Status Troponin T 03/28/2023 16:47:58 7 <=22 (ng/ L) Final Performing Location LABORATORY [facility] - [address] [place] [id number]
--- OUTSIDE RECORDS SUMMARY | 2023-03-30 03:39 | External Medical Summary ---
Author Name Unknown Address Unknown Organization K1G:LABORATORY [facility] - [address] [place] [id number] Laboratory Report Ordering Provider Test Date Status ELMER WU 03/28/2023 16:48:10 Final ADMITTED patient Observation Date Value Abnormality Reference (Units ) Status Adenovirus DNA [Presence] in Nasopharynx by MEME with non-probe detection 03/28/2023 16:48:10 Negative Negative Final Human coronavirus 229E RNA [Presence] in Nasopharynx by MEME with non-probe detection 03/28/2023 16:48:10 Negative Negative Final Human coronavirus HKU1 RNA [Presence] in Nasopharynx by MEME with non-probe detection 03/28/2023 16:48:10 Negative Negative Final Human coronavirus NL63 RNA [Presence] in Nasopharynx by MEME with non-probe detection 03/28/2023 16:48:10 Negative Negative Final Human coronavirus OC43 RNA [Presence] in Nasopharynx by MEME with non-probe detection 03/28/2023 16:48:10 Negative Negative Final SARS-CoV-2 (COVID-19) RNA [Presence] in Nasopharynx by MEME with non-probe detection 03/28/2023 16:48:10 Negative Negative Final Human metapneumovirus RNA [Presence] in Nasopharynx by MEME with non-probe detection 03/28/2023 16:48:10 Negative Negative Final Rhinovirus+Enterovirus RNA [Presence] in Nasopharynx by MEME with non-probe detection 03/28/2023 16:48:10 Negative Negative Final Influenza virus A RNA [Presence] in Nasopharynx by MEME with non-probe detection 03/28/2023 16:48:10 Negative Negative Final Influenza virus B RNA [Presence] in Nasopharynx by MEME with non-probe detection 03/28/2023 16:48:10 Negative Negative Final Parainfluenza virus 1 RNA [Presence] in Nasopharynx by MEME with non-probe detection 03/28/2023 16:48:10 Negative Negative Final Parainfluenza virus 2 RNA [Presence] in Nasopharynx by MEME with non-probe detection 03/28/2023 16:48:10 Negative Negative Final Parainfluenza virus 3 RNA [Presence] in Nasopharynx by MEME with non-probe detection 03/28/2023 16:48:10 Negative Negative Final Parainfluenza virus 4 RNA [Presence] in Nasopharynx by MEME with non-probe detection 03/28/2023 16:48:10 Positive Abnormal Negative Final Parainfluenza virus 4 detect ed by PCR (amplified probe).
null Respiratory syncytial virus RNA [Presence] in Nasopharynx by MEME with non-probe detection 03/28/2023 16:48:10 Negative Negative F inal Bordetella pertussis.pertuss is toxin promoter region [Presence] in Nasopharynx by MEME with non-probe detection 03/28/2023 16:48:10 Negative Negative Final Chlamydophila pneumoniae DNA [Presence] in Nasopharynx by MEME with non-probe detection 03/28/2023 16:48:10 Negative Negative Final Mycoplasma pneumoniae DNA [P resence] in Nasopharynx by MEME with non-probe detection 03/28/2023 16:48:10 Negative Negative Final Bordetella parapertussis IS1 001 DNA [Presence] in Nasopharynx by MEME with non-probe detection 03/28/2023 16:48:10 Negative Negative F inal
The primers that detect Rhinovirus may cross react with some Enterorviruses. The validation of bronchial specimens, tracheal aspirates, and throats for this assay was developed and performance characteristics determined by [facility]. The validation of alternate specimen types has not been cleared or approved by the U.S. Food and Drug Administration (FDA). It has been determined that such clearance or approval is not necessary. Performing [facility] - [address] [facility] [id number]
--- OUTSIDE RECORDS SUMMARY | 2023-03-30 03:39 | External Medical Summary ---
Author Name Unknown Address Unknown Organization K1G:LABORATORY [facility] - [address] [facility] [address] Laboratory Report Ordering Provider Test Date Status RITIKA MCDONALD 03/20/2023 01:03:44 Fin al Observation Date Value Abnormality Reference (Units ) Status SYNC LEUKOCYTES IN BLOOD BY AUTOMATED COUNT 03/20/2023 01:03:44 16.12 Above high normal 4.00-10.80 (K/uL) Final Neutrophils/100 leukocytes in Blood by Manual count 03/20/2023 01:03:44 69.0 40.0-75.0 (%) Final Lymphocytes/100 leukocytes in Blood by Manual count 03/20/2023 01:03:44 23.0 18.0-42.0 (%) Final Monocytes/100 leukocytes in Blood by Manual count 03/20/2023 01:03:44 7.0 1.0-11.0 (%) Final Eosinophils/100 leukocytes in Blood by Manual count 03/20/2023 01:03:44 1.0 0.0-6.0 (%) Final Neutrophils [#/volume] in Blood by Manual count 03/20/2023 01:03:44 11.12 Above high normal 1.80-7.70 (K/uL) Final Lymphocytes [#/volume] in Blood by Manual count 03/20/2023 01:03:44 3.71 1.00-4.80 (K/uL) Final Monocytes [#/volume] in Blood by Manual count 03/20/2023 01:03:44 1.13 Above high normal 0.00-1.10 (K/uL) Final Eosinophils [#/volume] in Blood by Manual count 03/20/2023 01:03:44 0.16 0.00-0.70 (K/uL) Final Nucleated erythrocytes/100 leukocytes [Ratio] in Blood by Automated count 03/20/2023 01:03:44 Final Performing Location LABORATORY [facility] - [address] [facility] [address]
--- OUTSIDE RECORDS SUMMARY | 2023-03-30 03:39 | External Medical Summary ---
Author Name Unknown Address Unknown Organization K1G:LABORATORY [facility] - [address] [facility] [address] Laboratory Report Ordering Provider Test Date Status ELMER WU 03/28/2023 16:57:07 Final Observation Date Value Abnormality Reference (Units ) Status Color of Urine by Auto 03/28/2023 16:57:07 Yellow Light Yellow, Yellow, Dark Yellow Final Clarity, Urine 03/28/2023 16:57:07 Clear Clear Final Glucose [Mass/volume] in Urine by Automated test strip 03/28/2023 16:57:07 Negative Negative (mg/dL) Final Bilirubin.total [Presence] in Urine by Automated test strip 03/28/2023 16:57:07 Small Abnormal Negative Final Ketones [Mass/volume] in Urine by Automated test strip 03/28/2023 16:57:07 40 Abnormal Negative (mg/dL) Final Specific gravity, Urine 03/28/2023 16:57:07 1.032 Above high normal 1.003-1.030 Final Hemoglobin [Presence] in Urine by Automated test strip 03/28/2023 16:57:07 Trace Abnormal Negative Final pH, Urine 03/28/2023 16:57:07 5.5 5.0-7.5 (Units) Final Protein [Mass/volume] in Urine by Automated test strip 03/28/2023 16:57:07 Trace Abnormal Negative (mg/dL) Final Urobilinogen [Mass/volume] in Urine by Automated test strip 03/28/2023 16:57:07 0.2 0.2, 1.0 (mg/dL) Final Nitrite [Presence] in Urine by Automated test strip 03/28/2023 16:57:07 Negative Negative Final Leukocyte esterase [Presence] in Urine by Automated test strip 03/28/2023 16:57:07 Negative Negative Final Performing Location LABORATORY [facility] - [address] [facility] [address]
--- OUTSIDE RECORDS SUMMARY | 2023-03-30 03:39 | External Medical Summary ---
Author Name Unknown Address Unknown Organization K01:LABORATORY [facility] - [address] [place] [address] Laboratory Report Ordering Provider Test Date Status RITIKA MCDONALD 03/20/2023 01:03:44 Fin al Observation Date Value Abnormality Reference (Units ) Status T3, Free 03/20/2023 01:03:44 4.2 2.5-4.3 (p g/mL) Final Performing Location LABORATORY [facility] - [address] [place] [address]
--- OUTSIDE RECORDS SUMMARY | 2023-03-30 03:39 | External Medical Summary | Summary of Care ---
Author Name Unknown Organization [facility] Address [address] [place] [address] Phone [phone] Care Team Providers Care Straw Hat Washer Operator Name Role Phone Venecia Cabrera PA-C Primary Care Provider Reason for Visit * Reason Comments Dosage Adjustment Via Phone (anticoag Cl inic) Status Check Encounter Details Date Type Department Care Team (Late st Contact Info) Description 03/24/2023 7:10 AM [facility] Pharmacy Hepatology, [place] [address] [place], [place] [phone] [place], Pharmacist Hepatology [address] [place], [place] [phone] Chronic hepatitis C without hepatic coma (HCC)* Allergies Active Allergy Reactions Criticality Noted Date Comments Lactose 01/11/2007 Risperidone Medium 05/25/2018 Other reaction(s): Hives / Urticaria, weak in legs documented as of this encounter (statuses as of 03/24/2023) Medications Medication Sig Dispensed Refills Start Date End Date Status Cyclobenzaprine HCl 5 MG Oral Tablet (Flexeril)Indicatio ns:Acute left-sided low back pain with left-sided sciatica [...] Active Sertraline HCl 50 MG Oral Tablet (Zoloft)Indications :Current moderate episode of major depressive disorder, unspecified whether recurrent (HCC) Take 1 Tablet by mouth in the morning. 30 Tablet 5 03/18/2023 Active LORazepam 1 MG Oral Tablet (Ativan) Take 1 Tablet by mouth every 8 hours as needed for Anxiety. 12 Tablet 0 03/20/2023 Active busPIRone HCl 10 MG Oral Tablet (Buspar) Take 1 Tablet by mouth in the morning and 1 Tablet at noon and 1 Tablet before bedtime. 90 Tablet 0 2023 Active documented as of this encounter (statuses as of 03/24/2023) Active Problems Problem Noted Date Diagnosed Date [...] of adult 05/13/2021 Diabetes mellitus without complication documented as of this encounter (statuses as of 03/24/2023) Immunizations Name Administration Dates Next Due Hepatitis B Vaccine, Recombi nant, Adjuvanted, 20 mcg/mL (Heplisav-B) 08/25/2022,06/16/2022 Hepatitis B, 20+ yrs 06/16/2022 documented as of this encounter Social History Tobacco Use Types Packs/Day Years Used Date Smoking Tobacco: Every Day Passive Smoke Exposure: Current Smokeless Tobacco: Former Chew Alcohol Use Standard Drinks/Week Comments Not Currently 0 (1 standard drink = 0.6 oz [...] on file documented as of this encounter Progress Notes * Salena Awan RPh - 03/24/2023 8:39 AM EST MTM Hepatitis C Treatment Follow-Up Patient Name: Wilman Maynard Lab reminder phone call #[phone] Treatment Overview: Hepatology Provider: Douglas Regalado MD Treatment Plan: Mavyret for 8 weeks. Started Treatment: 07/13/2022 Finished Treatment: 09/14/2022 This is a phone call to remind the patient they are due for SVR blood work. The patient failed to show for the lab appointment at [facility] for 12/02/2022 The patient failed to respond to the letter mailed to his house. Labs Due: 12/02/2022 Is the patient aware of the lab date:Yes. I called the mobile phone and spoke with the patient. He agreed to have the labs drawn while at his PCP appointment in April. He declined the offer to schedule an appointment and he requested a reminder the day prior. MT Plan: Will follow up once results are available to review. Salena Awan, Angelica, BCPS Clinical Pharmacist, Hepatology 03/24/2023 10:15 AM documented in this encounter Plan of Treatment Upcoming Encounters Date Type Department Care Team (Late st Contact Info) Description 04/12/2023 6:50 AM EST Scheduled Telephone [facility], [place] [address] [facility] [address] [place], Pharmacist Hepatology [address] [place] [address] 04/13/2023 10:40 AM EST Office Visit [facility] [address] [place] [address] Venecia Cabrera PA-C [address] [place] [address] Health Maintenance Due Date Last Done Comments DISCUSS TOBACCO CESSATION (REFER TO SMARTSET #7594) 1974 COVID-19 Vaccine (#1) 1974 Pneumococcal Vaccine: [...] 09/20/2022, 05/27/2022 Albumin/Creatinine Ratio 05/27/2023 05/27/2022 GFR 03/20/2024 03/20/2023, 04/0 06/2022, 05/27/2022, Additional history exists Lipid Panel 05/27/2027 05/27/2022 Hepatitis B Completed 08/25/2022, 0311/2022, 06/16/2022 GARDASIL-HPV IMMUNIZATION SERIES Aged Out No longer eligible based on patient's age to complete this topic MENINGOCOCCAL (MENACTRA/MENVEO) Aged Out No longer eligible based on patient's age to complete this topic documented as of this encounter Medical Devices Not on filedocumented as of this encounter Visit Diagnoses Diagnosis Chronic hepatitis C without hepatic coma (HCC)- Primary Chronic hepatitis C without mention of hepatic coma documented in this encounter Care Teams Straw Hat Washer Operator Relationship Specialty Start Date End Date Venecia Cabrera PA-C [address] [place] [address] PCP - General Physician Micro Photographer 05/27/22 documented as of this encounter
--- OUTSIDE RECORDS SUMMARY | 2023-03-30 03:39 | External Medical Summary | Summary of Care ---
Author Name Unknown Organization [facility] Address [address] [facility] [address] Phone [phone] Care Team Providers Care Extruding Department Supervisor Name Role Phone Venecia Cabrera PA-C Primary Care Provider Reason for Visit * Reason Comments Anxiety Panic attack * Auth/Cert Specialty Diagnoses / Procedures Referred By Louis t Referred To Contact Referral ID Status Reason Start Date Expiration Date Visits Re quested Visits Authorized [id number] Encounter Details Date Type Department Care Team (Late st Contact Info) Description 03/19/2023 11:43 PM EST - 03/20/2023 2:42 AM EST Emergency [facility] Emergency Department (SH) [address] [place] [address] Nini Vazquez DO [address] [place] [address] ERIN (generalized anxiety disorder) (Primary Dx); Chest pain; Elevated TSH Discharge Disposition: Home - Self Care Allergies Active Allergy Reactions Criticality Noted Date Comments Lactose 01/11/2007 Risperidone Medium 05/25/2018 Other reaction(s): Hives / Urticaria, weak in legs documented as of this encounter (statuses as of 03/20/2023) Medications Medication Sig Dispensed Refills Start Date [...] for Anxiety. 12 Tablet 0 03/20/2023 Active documented as of this encounter (statuses as of 03/20/2023) Active Problems Problem Noted Date Diagnosed Date [...] as of this encounter (statuses as of 03/20/2023) Immunizations Name Administration Dates Next Due Hepatitis B Vaccine, Recombi nant, Adjuvanted, 20 mcg/mL (Heplisav-B) 08/25/2022,06/16/2022 Hepatitis B, 20+ yrs 06/16/2022 documented as of this encounter Social History Tobacco Use Types Packs/Day Years Used Date Smoking Tobacco: Every Day Passive Smoke Exposure: Current Smokeless Tobacco: Former Chew Tobacco Cessation:Ready to Q uit: Not Asked; Counseling Given: Not Answered Alcohol Use Standard Drinks/Week Comments Not Currently [...] Sign Reading Time Taken Comments Blood Pressure 146/108 03/20/2023 2:19 AM EST Pulse 99 03/20/2023 2:19 AM EST Temperature 36.4 C (97.5 F) 03/19/2023 11:[address] Respiratory Rate 16 03/20/2023 2:19 AM EST Oxygen Saturation 96% 03/20/2023 2:19 AM EST Inhaled Oxygen Concentration - - Weight 141.1 kg (311 lb) 03/19/2023 11:41 PM EST Height 175.3 cm (5' 9") 03/19/2023 11:41 PM EST Body Mass Index 45.93 03/19/2023 11:41 PM EST documented in this encounter Discharge Instructions * Discharge Instructions* Nini Vazquez DO - 03/20/2023 2:36 AM EST If increased anxiety, increased depression, thoughts of harming self or others occurs, seek medicalattention. Do not drive while taking ativan until you know how it will affect you. Do not drink alcohol while taking this medication documented in this encounter ED Notes * Nini Vazquez DO - 03/20/2023 12:08 AM ESTAssociated Order(s): ECG Interpret HISTORY OF PRESENT ILLNESS Wilman Maynard is a 47 year old male who presents to the ED for evaluation of Anxiety (Panic attack ). The patient was seen at 03/19/23 8353. 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 He reports feeling shaky all over, followed by feeling of confusion/disorientation. He states this is typical for his panic attacks. He has been having panic attacks more frequently. Seen yesterday by PCP. Started on sertraline. States it hasn't helped as of yet. Denies feeling suicidal or homicidal. Has been admitted inpatient previously to help anxiety/depression. Isn't sure he has reached that point yet, but states he doesn't want it to get out of control. Cannot identify a trigger to precipitate the panic attacks. Patient accompanied by: Family member Onset quality: Gradual Timing: Intermittent Progression: Worsening Chronicity: Recurrent Context: recent medication change Context: not alcohol use and not drug abuse Context comment: Just started on sertraline 50 mg yesterday Relieved by: Antidepressants Worsened by: Lack of sleep Ineffective treatments: Antidepressants Associated symptoms: anxiety and appetite change (hasn't been eating as much) Associated symptoms: no abdominal pain Associated symptoms comment: Sleeps for 2-3 hours and then wakes up. Has difficulty falling back tosleep. Risk factors: hx of mental illness Risk factors: no hx of suicide attempts and no recent psychiatric admission Review of Systems Constitutional: Positive for appetite change (hasn't been eating as much). HENT: Negative for congestion, ear discharge, ear pain, rhinorrhea, sinus pressure, sinus pain and sore throat. Eyes: Negative for photophobia, pain and visual disturbance. Respiratory: Positive for chest tightness. Gastrointestinal: Positive for diarrhea. Negative for abdominal pain. Allergic/Immunologic: Positive for environmental allergies. Neurological: Positive for tremors. Psychiatric/Behavioral: Positive for confusion and sleep disturbance. The patient is nervous/anxious. The patient's allergies, past history, and medications were reviewed. PHYSICAL EXAM Initial Vitals (see all): BP 164/107 | Pulse 84 | Resp 16 | Temp 97.5 | O2 99 %, Room Air, None | Weight 141.07 kg | Height 175.3 cm | BMI 45.93 kg/m2 Initial Pain Assessment (see all): 0 (no pain)/10 ([facility] Adult Scale 0-10) Physical Exam Vitals and nursing note reviewed. Constitutional: General: He is not in acute distress. Appearance: He is obese. He is not ill-appearing. HENT: Head: Normocephalic and atraumatic. Right Ear: Tympanic membrane, ear canal and external ear normal. Left Ear: Tympanic membrane, ear canal and external ear normal. Nose: Nose normal. Mouth/Throat: Mouth: Mucous membranes are moist. Pharynx: No posterior oropharyngeal erythema. Eyes: Extraocular Movements: Extraocular movements intact. Conjunctiva/sclera: Conjunctivae normal. Pupils: Pupils are equal, round, and reactive to light. Cardiovascular: Rate and Rhythm: Normal rate and regular rhythm. Pulses: Normal pulses. Heart sounds: Normal heart sounds. No murmur heard. Pulmonary: Effort: Pulmonary effort is normal. Breath sounds: Normal breath sounds. No wheezing, rhonchi or rales. Abdominal: General: Bowel sounds are normal. Palpations: Abdomen is soft. Tenderness: There is no abdominal tenderness. There is no guarding or rebound. Musculoskeletal: General: No swelling. Cervical back: Normal range of motion and neck supple. Skin: General: Skin is warm. Capillary Refill: Capillary refill takes less than 2 seconds. Neurological: General: No focal deficit present. Mental Status: He is alert and oriented to person, place, and time. Cranial Nerves: No cranial nerve deficit. Sensory: No sensory deficit. Motor: No weakness. Coordination: Coordination normal. Gait: Gait normal. Deep Tendon Reflexes: Reflexes normal. Psychiatric: Attention and Perception: Attention and perception normal. Mood and Affect: Mood is anxious. Speech: Speech normal. Behavior: Behavior normal. Behavior is cooperative. Thought Content: Thought content normal. Thought content does not include homicidal or suicidal ideation. Thought content does not include homicidal or suicidal plan. Cognition and Memory: Cognition and memory normal. Judgment: Judgment normal. PROCEDURES AND TREATMENTS ED Orders | ED Results ECG Interpret Date/Time: 03/20/2023 1:52 AM Performed by: Nini Vazquez DO Authorized by: Nini Vazquez DO Previous ECG: Previous ECG: Unavailable Interpretation: Interpretation: abnormal Rate: ECG rate: 68 ECG rate assessment: normal Rhythm: Rhythm: sinus rhythm Ectopy: Ectopy: none QRS: QRS axis: Normal QRS intervals: Normal Conduction: Conduction: normal ST segments: ST segments: Normal Q waves: Q waves: III Intervals: WI Interval: 168 QRS Interval: 90 QTc Interval: 406 Other findings: Other findings: poor R wave progression Comments: Poor R-wave progression could be secondary to body habitus. Cannot exclude prior infarct. Q-wave seen lead III. MEDICAL DECISION MAKING Nursing notes and vital signs were reviewed. ED Course as of 03/20/23 0609 Sun Mar 20, 2023 0135 Toxicology Urine Screen Cup with Confirmation ([facility] and [facility] Only)(!) Positive for cannabinoids [CB] 0135 Ethanol, Medical Negative [CB] 0135 Troponin T, High Sensitivity normal [CB] 0135 Comprehensive Metabolic Panel Normal [CB] 0215 TSH(!) Elevated. Cannot exclude hypothyroidism. T4 pending. [CB] 0227 Feeling better. Anxiety has improved. Will discharge to home. [CB] ED Course User Index [CB] Nini Vazquez DO Differential Diagnoses Based on my history, physical exam, and evaluation, the differential includes, but is not limited, to the following diagnoses: anxiety, major depression, adeline and substance abuse. Patient appears to be anxious. Hydroxyzine 50 mg PO administered. Patient continues to have symptoms anxiety. Ativan 1 mg PO administered. Labs obtained to rule out metabolic cause anxiety. TSH is elevated suggesting potential hypothyroidism. T3, T4 pending to further evaluate thyroid function. This could be making his anxiety/depression worse. He just started sertraline yesterday. He does not feel the medication is making his symptoms worse. It just hasn't helped yet. Reassured patient it could take several weeks for medication to help. In the meantime, he was given a prescription for Ativan1 mg every 8 hours PRN anxiety. Instructed to contact his PCP tomorrow AM to schedule follow up appointment. Instructed to seek medical attention if increased depression/anxiety, suicidal ideation occurs. Amount and/or Complexity of Data Reviewed Labs: ordered. Decision-making details documented in ED Course. ECG/medicine tests: ordered and independent interpretation performed. Risk Prescription drug management. Clinical Impressions Chest pain ERIN (generalized anxiety disorder) Elevated TSH Disposition Discharged. The patient's condition at disposition was: stable. Discharge Medications Disp Refills Start End LORazepam 1 MG Oral Tablet (Ativan) 12 Tablet 0 03/20/2023 -- Sig - Route: Take 1 Tablet by mouth every 8 hours as needed for Anxiety. - Oral Class: ePrescribing Renewals Renewal requests to authorizing provider (Nini Vazquez DO) <b>prohibited</b> Nini Garnett ATTENDING ATTESTATION I have seen and examined this patient on the 03/19/2023 visit. I have discussed the patient's management with the provider listed above and agree with the note, findings, and plan of care. Nini Gonzalez-DO Tamir * Jared Chand RN - 03/19/2023 11:49 PM EST Pt reports "panic attack tonight", "muscles are tight", was seen here recently and started on ZOLOFT, pt states he can not wait the two weeks it takes for the medication to be therapeutic documented in this encounter Miscellaneous Notes * ED Rate Quoting Operator Note - Jared Chand RN - 03/20/2023 2:38 AM EST Medication to go given to Dr Au to give to pt * Pt Handout (on AVS) - Nini Vazquez DO - 03/20/2023 2:36 AM EST Images from the original note were not included. [id number] Hypothyroidism You have been diagnosed with hypothyroidism. This means your thyroid gland doesn't make enough thyroid hormone. This hormone is vital to body growth and metabolism. If you don?t make enough, many body processes slow down. This can cause symptoms. Hypothyroidism can range from mild to severe. The most severe form is called myxedema coma. There are many causes of hypothyroidism. A common cause is Jag?s thyroiditis. This is a disease that causes the immune system to attack the thyroid gland. Other causes include: Radiation to the thyroid gland Surgery to remove the thyroid gland Not enough hormones from the pituitary gland Medicines such as lithium or amiodarone Symptoms of hypothyroidism can include: Fatigue Trouble concentrating, thinking clearly, or remembering Dry skin Hair loss Weight gain Low tolerance to cold Constipation Depression Personality changes Tingling or prickling of the hands or feet Heavy, absent, or irregular periods Older adults may sometimes have other symptoms. These can include: Muscle aches and weakness Confusion Problems controlling urine or stool (incontinence) Trouble moving around Falling Treatment for hypothyroidism is done by taking thyroid hormone pills daily. These pills replace thehormone your thyroid doesn?t make. You'll likely need to take a daily pill for the rest of your life. Tips for taking this medicine are below. Home care Tips for taking your medicine Take your thyroid hormone pills exactly as prescribed. This is most often 1 pill a day on an empty stomach. Use a pillbox labeled with the days of the week. This will help you remember to take your pill each day. Don?t take iron, calcium, or antacids within 4 hours of taking your thyroid hormone pills. Don?t take other medicines with your thyroid hormone pill without checking with your provider first. Tell your provider if you have any side effects from your medicines. Tell them if you have chestpain or irregular heartbeats. Don't change the dose or stop taking your thyroid pills. Talk to your provider first. General care Always talk with your provider before trying other treatments for your thyroid. Tell all of your healthcare providers you have hypothyroidism. Tell your provider if you get . Your dose of thyroid hormone will need to be changed. Follow-up care See your provider for checkups as advised. You'll need regular tests to check the level of thyroid hormone in your blood. When to get medical care Call your healthcare provider right away if you have any of these: New symptoms Symptoms that return, continue, or get worse even with treatment Extreme fatigue Puffy hands, face, or feet Fast or irregular heartbeat Confusion Call 911 Call 911 if any of these occur: Fainting Chest pain Shortness of breath or trouble breathing Last Reviewed Date: 03/11/202119993001-5282 The [employer]. All rights reserved. This information is not intended as a substitute for professional medical care. Always follow your healthcare professional's instructions. * Pt Handout (on AVS) - Nini Vazquez DO - 03/20/2023 2:35 AM EST Images from the original note were not included. 25173 Treating an Anxiety Disorder with Medicine An anxiety disorder can make you feel nervous or fearful without a clear reason. It may happen withdepression. Some anxiety disorders can cause intense feelings of fear or panic. You may have physical symptoms. These can include: Racing heartbeat Sweating Dizziness Treatment for anxiety will likely include therapy (counseling). And medicine may be prescribed to help control your symptoms. How medicine may help Anti-anxiety medicine can help to control your symptoms. It can help you feel less anxious. You mayfeel able to move forward with therapy. Your healthcare provider will tell you when and how to use the medicine. It may be for use before situations that make you anxious. Or you may be told to take the medicine on a regular schedule. At first, medicines and doses may need to be adjusted to find what works best for you. Try to be patient. Tell your healthcare provider how a medicine makes you feel. This way, you can work together to find the medicine that?s best for you. Keep in mind that medicines can have side effects. Talk with your provider about any side effects that bother you. Changing the dose or type of medicine may help. Before you start using a medicine Before you start taking a medicine for anxiety, ask about: Side effects. Medicines may cause side effects. Ask your healthcare provider or pharmacist what you can expect. They may have tips for easing some side effects. Allergies. Remind your healthcare provider about any allergies you have. Tell them if you've hadany problems with medicines in the past Sexual effects. Some medicines can affect your desire for sex. They can affect your ability to have an orgasm. A change in dose or type of medicine may help. If you have a sexual side effect that concerns you, tell your healthcare provider. Addiction concerns. Tell your healthcare provider if you?ve ever had a problem with drugs or alcohol. You may not have a problem with medicines used to treat anxiety disorders. But some medicines for anxiety may not be right for you. Medicine interactions. Ask your pharmacist before using any sehs-raw-bnpakay medicines. This includes vitamins and herbal supplements. Some of these may interact with your anti-anxiety medicine. They may make them work less or be too strong. When you start using a medicine Keep in mind: Some medicines must be taken on a schedule. Make this part of your daily routine. For example, take your pill each day before brushing your teeth. A pillbox can help you remember if you?ve taken your medicine each day. Medicines are often taken for 6 to 12 months. Your healthcare provider will then assess if you need to stay on them. If you also had therapy, you may no longer need medicine to manage your anxiety. You may need to stop your medicine slowly. This is to give your body time to adjust. When it?s time to stop, your healthcare provider will tell you more. Never stop your medicine without talking to your provider first. If your symptoms come back, you may need to take medicine again. This isn?t your fault. It?s just the nature of your anxiety disorder. Medicine safety Don?t change the dose on your own. Don?t stop taking the medicine on your own. That can cause symptoms to come back. It may cause withdrawal symptoms. These can be dangerous. Anti-anxiety medicine may make you feel a little sleepy. You may have trouble focusing. Don?t drive a car or use machinery while on this medicine, until you know how it affects you. Never use alcohol or other drugs with anti-anxiety medicines. This can cause loss of muscle control. You may not be able to be awake or aware. It may lead to coma or . Use only the amount of medicine prescribed for you. If you took too much medicine, get emergencycare right away. Never share your medicines with others. Never use another person?s medicine. Store these medicines in a safe place. Make sure they can't be reached by children or visitors. Last Reviewed Date: 12/10/202219999218-1833 The [employer]. All rights reserved. This information is not intended as a substitute for professional medical care. Always follow your healthcare professional's instructions. documented in this encounter Plan of Treatment Upcoming Encounters Date Type Department Care Team (Late st Contact Info) Description 03/24/2023 7:10 AM EST Pharmacy Hepatology, [place] [address] [place] [address] [place], Pharmacist Hepatology [address] [place] [address] 04/13/2023 10:40 AM EST Office Visit [facility] [address] [place] [address] Venecia Cabrera PA-C [address] [place] [address] Pending Results Name Type Priority Associated Diagnoses Date /Time THC METABOLITE, URINE CONFIRMATION Lab STAT 03/20/2023 1:03 AM EST Scheduled Orders Name Type Priority Associated Diagnoses Orde r Schedule EKG EKG STAT Chest pain Perform Now for 1 Occurrences starting 03/20/2023 until 03/20/2023 THC METABOLITE, URINE CONFIRMATION Lab STAT One Time for 1 Occurrences starting 03/20/2023 until 03/20/2023 Health Maintenance Due Date Last Done Comments DISCUSS TOBACCO CESSATION (REFER TO SMARTSET #4940) 1974 COVID-19 Vaccine (#1) 1975 Pneumococcal Vaccine: [...] Panel 05/27/2027 05/27/2022 Hepatitis B Completed 08/25/2022, 03/0 11/2022, 06/16/2022 GARDASIL-HPV IMMUNIZATION SERIES Aged Out No longer eligible based on patient's age to complete this topic MENINGOCOCCAL (MENACTRA/MENVEO) Aged Out No longer eligible based on patient's age to complete this topic documented as of this encounter Medical Devices Not on filedocumented as of this encounter Procedures Procedure Name Priority Date/Time Associated Diagnosis Comments ECG INTERPRET Routine 03/20/2023 1:52 AM EST TOXICOLOGY URINE SCREEN CUP W/ CONFIRMATION ([facility] AND [facility] ONLY) STAT 03/20/2023 1:03 AM EST DIFFERENTIAL, AUTOMATED STAT 03/20/2023 1:03 AM EST COMPREHENSIVE METABOLIC PANEL STAT 03/20/2023 1:03 AM EST CBC STAT 03/20/2023 1:03 AM EST ETHANOL, MEDICAL STAT 03/20/2023 1:03 AM EST CBC STAT 03/20/2023 1:03 AM EST DIFFERENTIAL, TECHNOLOGIST REVIEW Routine 03/20/2023 1:03 AM EST T3, FREE Add-on 03/20/2023 1:03 AM EST TSH STAT 03/20/2023 1:03 AM EST T4, FREE STAT 03/20/2023 1:03 AM EST EXTRA GREEN TOP WITH GEL Routine 03/20/2023 1:02 AM EST EXTRA TUBES Routine 03/20/2023 1:02 AM EST TROPONIN T, HIGH SENSITIVITY Add-on 03/20/2023 1:02 AM EST documented in this encounter Results * ECG Interpret (03/20/2023 1:52 AM EST) Narrative Nini Vazquez DO - 03/20/2023 1:52 AM EST Nini Vazquez DO 03/20/2023 6:09 AM ECG Interpret Date/Time: 03/20/2023 1:52 AM Performed by: Nini Vazquez DO Authorized by: Nini Vazquez DO Previous ECG: Previous ECG: Unavailable Interpretation: Interpretation: abnormal Rate: ECG rate: 68 ECG rate assessment: normal Rhythm: Rhythm: sinus rhythm Ectopy: Ectopy: none QRS: QRS axis: Normal QRS intervals: Normal Conduction: Conduction: normal ST segments: ST segments: Normal Q waves: Q waves: III Intervals: WI Interval: 168 QRS Interval: 90 QTc Interval: 406 Other findings: Other findings: poor R wave progression Comments: Poor R-wave progression could be secondary to body habitus. Cannot exclude prior infarct. Q-wave seen lead III. Nini Garnett DO PROCEDUR E REPORT * T3, FREE (03/20/2023 1:03 AM EST) T3, Free 4.2 2.5 - 4.3 pg/mL 03/20/2023 1:47 PM EST [facility] Blood Venous blood specimen / Unknown Venipuncture / Unknown 03/20/2023 1:03 AM EST 03/20/2023 1:10 AM EST Nini Garnett DO LAB BLOO D ORDERABLES [facility] [address] [place] [address] * T4, FREE (03/20/2023 1:03 AM EST) T4, Free 1.4 0.9 - 1.7 ng/dL 03/20/2023 1:47 PM EST [facility] Blood Venous blood specimen / Unknown Venipuncture / Unknown 03/20/2023 1:03 AM EST 03/20/2023 1:10 AM EST Nini Garnett DO LAB BLOO D ORDERABLES [facility] [address] [place] [address] * (ABNORMAL) DIFFERENTIAL, TECHNOLOGIST REVIEW (03/20/2023 1:03 AM EST) WBC 16.12(H) 4.00 - 10.80 K/uL 03/20/2023 1:50 AM EST LABORATORY [facility] Neutrophils % 69.0 40.0 - 75.0 % 03/20/2023 1:50 AM EST LAB[facility]ATORY [facility] Lymphocytes % 23.0 18.0 - 42.0 % 03/20/2023 1:50 AM EST LAB[facility]ATORY [facility] Monocytes % 7.0 1.0 - 11.0 % 03/20/2023 1:50 AM EST LAB[facility]ORY [facility] Eosinophils % 1.0 0.0 - 6.0 % 03/20/2023 1:50 AM EST LAB[facility]ATORY [facility] Absolute Neutrophils 11.12(H) 1.80 - 7.70 K/uL 03/20/2023 1:50 AM EST LAB[facility]ORY [facility] Absolute Lymphocytes 3.71 1.00 - 4.80 K/uL 03/20/2023 1:50 AM EST LAB[facility]ATORY [facility] Absolute Monocytes 1.13(H) 0.00 - 1.10 K/uL 03/20/2023 1:50 AM EST LAB[facility]ORY [facility] Absolute Eosinophils 0.16 0.00 - 0.70 K/uL 03/20/2023 1:50 AM EST LAB[facility] nRBCs 03/20/2023 1:50 AM EST [facility]ORY [facility] Blood Venous blood specimen / Unknown Venipuncture / Unknown 03/20/2023 1:03 AM EST 03/20/2023 1:10 AM EST Nini Garnett DO LAB BLOO D ORDERABLES LABORATORY [facility] [address] [place] [address] * DIFFERENTIAL, AUTOMATED (03/20/2023 1:03 AM EST) Blood Venous blood specimen / Unknown Venipuncture / Unknown 03/20/2023 1:03 AM EST 03/20/2023 1:10 AM EST Nini Garnett DO LAB BLOO D ORDERABLES Performing Organization Address [facility] Co de Phone Number LABORATORY [facility] [address] [place] [address] * (ABNORMAL) CBC (03/20/2023 1:03 AM EST) WBC 16.12(H) 4.00 - 10.80 K/uL 03/20/2023 1:50 AM EST LABORATORY [facility] RBC 5.59 4.50 - 5.25 M/uL 03/20/2023 1:50 AM EST LABORATORY [facility] HGB 16.4 14.0 - 16.8 g/dL 03/20/2023 1:50 AM EST LABORATORY [facility] HCT 48.2 40.0 - 48.4 % 03/20/2023 1:50 AM EST LABORATORY [facility] MCV 86.2 82.0 - 99.5 fL 03/20/2023 1:50 AM EST LABORATORY [facility] MCH 29.3 27.0 - 34.0 pg 03/20/2023 1:50 AM EST LABORATORY [facility] MCHC 34.0 32.0 - 36.0 g/dL 03/20/2023 1:50 AM EST [facility] [facility] RDW 13.4 11.5 - 15.5 % 03/20/2023 1:50 AM EST LABORATORY [facility] PLT 299 140 - 400 K/uL 03/20/2023 1:50 AM EST LABORATORY [facility] MPV 10.0 6.6 - 11.1 fL 03/20/2023 1:50 AM EST LABORATORY [facility] Blood Venous blood specimen / Unknown Venipuncture / Unknown 03/20/2023 1:03 AM EST 03/20/2023 1:10 AM EST Nini Marinoick DO LAB BLOO D ORDERABLES Performing Organization Address [facility]/ZIP Co de Phone Number LABORATORY [address] [address] * (ABNORMAL) TSH (03/20/2023 1:03 AM EST) TSH 7.52(H) 0.27 - 4.20 uIU/mL 03/20/2023 1:55 AM EST LABORATORY [facility] Blood Venous blood specimen / Unknown Venipuncture / Unknown 03/20/2023 1:03 AM EST 03/20/2023 1:10 AM EST Nini Gonzalez Bolick DO LAB BLOO D ORDERABLES Performing Organization Address [facility]/ZIP Co de Phone Number LABORATORY [address] [address] * ETHANOL, MEDICAL (03/20/2023 1:03 AM EST) Pathologist [facility] [place] ETHANOL, MEDICAL Negative Negative 03/20/2023 1:33 AM EST LABORATORY [facility] Blood Venous blood specimen / Unknown Venipuncture / Unknown 03/20/2023 1:03 AM EST 03/20/2023 1:10 AM EST Nini Marinoick DO LAB BLOO D ORDERABLES Performing Organization Address City/[facility]/ZIP Co de Phone Number LABORATORY [address] [phone] * (ABNORMAL) TOXICOLOGY URINE SCREEN CUP W/ CONFIRMATION ([facility] AND [facility] ONLY) (03/20/2023 1:03 AM EST) Amphetamine Negative Negative 03/20/2023 1:33 AM EST LABORATORY [facility] Barbiturates Negative Negative 03/20/2023 1:33 AM EST LABORATORY [facility] Benzodiazepines Negative Negative 1:33 AM EST LABORATORY [facility] Cannabinoids Positive(A) Negative 03/20/2023 1:33 AM EST LABORATORY [facility] Cocaine Metabolite Negative Negative 2022 1:33 AM EST LABORATORY [facility] Morphine / Codeine Negative Negative 2022 1:33 AM EST LABORATORY [facility] Methadone Metabolite Negative Negative 03/20/2023 1:33 AM EST LABORATORY [facility] Oxycodone / Oxymorphone Negative Negative 03/20/2023 1:33 AM EST LABORATORY [facility] Urine Urine specimen obtained by clean catch procedure / Unknown Non-blood Collection / Unknown 03/20/2023 1:03 AM EST 03/20/2023 1:11 AM EST Narrative LABORATORY [facility] - 03/20/2023 1:33 AM EST Cutoff Concentrations: Drug Level Amphetamines 500 ng/mL Barbiturates 300 ng/mL Benzodiazepines 300 ng/mL Cannabinoids 50 ng/mL Cocaine Metabolite 300 ng/mL Morphine / Codeine 300 ng/mL Methadone 300 ng/mL Oxycodone 100 ng/mL Screening results are presumptive and can only be used for medical purposes. Positive screening results are reflexed to confirmatory testing. Nini Garnett DO LAB URIN E ORDERABLES [facility] [place] [address] * COMPREHENSIVE METABOLIC PANEL (03/20/2023 1:03 AM EST) BUN 11 6 - 20 mg/dL 03/20/2023 1:33 AM EST LABORATORY [facility] Creatinine 0.7 0.6 - 1.2 mg/dL 03/20/2023 1:33 AM EST LABORATORY [facility] Estimated Glomerular Filtration Rate >90 >=60 mL/min 03/20/2023 1:33 AM EST LABORATORY [facility] Comment:eGFR is calculated b ased on the CKD-EPI 2020 equation Sodium 136 135 - 146 mmol/L 03/20/2023 1:33 AM EST LABORATORY [facility] Potassium 4.0 3.5 - 5.1 mmol/L 03/20/2023 1:33 AM EST LABORATORY [facility] Chloride 103 98 - 107 mmol/L 03/20/2023 1:33 AM EST LABORATORY [facility] CO2 22 22 - 32 mmol/L 03/20/2023 1:33 AM EST LABORATORY [facility] Anion Gap 11 7 - 15 mmol/L 03/20/2023 1:33 AM EST LABORATORY [facility] Glucose 109 70 - 120 mg/dL 03/20/2023 1:33 AM EST LABORATORY [facility] Albumin 4.0 3.8 - 5.0 g/dL 03/20/2023 1:33 AM EST LABORATORY [facility] AST 17 10 - 50 U/L 03/20/2023 1:33 AM EST LABORATORY [facility] Alkaline Phosphatase 113 35 - 130 U/L 03/20/2023 1:33 AM EST LABORATORY [facility] Bilirubin, Total 0.2 <=1.2 mg/dL 03/20/2023 1:33 AM EST LABORATORY [facility] Calcium 9.6 8.4 - 10.2 mg/dL 03/20/2023 1:33 AM EST LABORATORY [facility] Protein 7.3 6.0 - 8.3 g/dL 03/20/2023 1:33 AM EST LABORATORY [facility] ALT 19 10 - 50 U/L 03/20/2023 1:33 AM EST LABORATORY [facility] Blood Venous blood specimen / Unknown Venipuncture / Unknown 03/20/2023 1:03 AM EST 03/20/2023 1:10 AM EST Nini Marinoick DO LAB BLOO D ORDERABLES Performing Organization Address [facility] Co de Phone Number LABORATORY [address] [phone] * EXTRA GREEN TOP WITH GEL (03/20/2023 1:02 AM EST) Blood Venous blood specimen / Unknown 03/20/2023 1:02 AM EST 03/20/2023 1:11 AM EST Nini Dusius Bolick DO LAB BLOO D ORDERABLES Performing Organization Address City/[facility] Co de Phone Number LABORATORY [address] [phone] * TROPONIN T, HIGH SENSITIVITY (03/20/2023 1:02 AM EST) Troponin T, High Sensitivity 6 <=22 ng/L 03/20/2023 1:34 AM EST LABORATORY [facility] Blood Venous blood specimen / Unknown 03/20/2023 1:02 AM EST 03/20/2023 1:11 AM EST Nini Holland Lisa Garnett DO LAB BLOO D ORDERABLES LABORATORY [facility] [address] [place] [address] documented in this encounter Visit Diagnoses Diagnosis ERIN (generalized anxiety disorder)- Primary Generalized anxiety disorder Chest pain Chest pain, unspecified Elevated TSH Other abnormal blood chemistry documented in this encounter Administered Medications Inactive Administered Medications - up to 3 most recent administrations Medication Order MAR Action Action Date Dose Rate Site hydrOXYzine HCl tab 50 mg 50 mg, Oral, ONCE, On 03/20/23 at 0045, For 1 dose Given 03/20/2023 12:13 AM EST 50 mg LORazepam (Ativan) tab 1 mg 1 mg, Oral, ONCE, On 03/20/23 at 0130, For 1 dose Given 03/20/2023 1:02 AM EST 1 mg LORazepam (Ativan) tab 1 mg 1 mg, Oral, ONCE, On 03/20/23 at 0300, For 1 dose Given 03/20/2023 2:38 AM EST 1 mg documented in this encounter Active and Recently Administered Medications Times are shown in EST. Scheduled Medication Order 03/18/2023 03/19/2023 03/20/2023 hydrOXYzine HCl tab 50 mg (COMPLETED) 50 mg, Oral, ONCE, On 03/20/23 at 0045, For 1 dose 0013 (Given - Provid er: Jared Chand RN) LORazepam (Ativan) tab 1 mg (COMPLETED) 1 mg, Oral, ONCE, On 03/20/23 at 0130, For 1 dose 0102 (Given - Provid er: Jared Chand RN) LORazepam (Ativan) tab 1 mg (COMPLETED) 1 mg, Oral, ONCE, On 03/20/23 at 0300, For 1 dose 0238 (Given - Provid er: Jared Chand RN - Comment: given to go per Dr Au order, with instructions) documented in this encounter Care Teams Extruding Department Supervisor Relationship Specialty Start Date End Date Venecia Cabrera PA-C [facility] [address] PCP - General Physician Nurse Sane 05/27/22 documented as of this encounter
--- OUTSIDE RECORDS SUMMARY | 2023-03-30 03:39 | External Medical Summary ---
Author Name Unknown Address Unknown Organization K1G:LABORATORY [facility] - [address] [facility] [address] Laboratory Report Ordering Provider Test Date Status ELMER WU 03/28/2023 16:47:58 Final Observation Date Value Abnormality Reference (Units ) Status SYNC LEUKOCYTES IN BLOOD BY AUTOMATED COUNT 03/28/2023 16:47:58 12.02 Above high normal 4.00-10.80 (K/uL) Final Segs 03/28/2023 16:47:58 76.4 Above high normal 40.0-75.0 (%) Final Lymphs % 03/28/2023 16:47:58 13.1 Below low normal 18.0-42.0 (%) Final Monos 03/28/2023 16:47:58 9.1 1.0-11.0 (%) Final Eosinophils 03/28/2023 16:47:58 1.0 0.0-6.0 (%) Final Basos 03/28/2023 16:47:58 0.4 0.0-2.0 (%) Final Absolute Segs 03/28/2023 16:47:58 9.19 Above high normal 1.80-7.70 (K/uL) Final Lymphs, absolute 03/28/2023 16:47:58 1.57 1.00-4.80 (K/ul) Final Monos, Abs 03/28/2023 16:47:58 1.09 0.00-1.10 (K/uL) Final Eos, Abs 03/28/2023 16:47:58 0.12 0.00-0.70 (K/uL) Final Basos, Abs 03/28/2023 16:47:58 0.05 0.00-0.20 (K/uL) Final Performing Location LABORATORY [facility] - [address] [facility] [address]
--- OUTSIDE RECORDS SUMMARY | 2023-03-30 03:39 | External Medical Summary ---
Author Name Unknown Address Unknown Organization K1G:LABORATORY [facility] - [address] [facility] [address] Laboratory Report Ordering Provider Test Date Status ELMER WU 03/28/2023 16:47:58 Final Observation Date Value Abnormality Reference (Units ) Status Ethanol 03/28/2023 16:47:58 Negative Negative Final Performing Location LABORATORY [facility] - [address] [facility] [address]
--- OUTSIDE RECORDS SUMMARY | 2023-03-30 03:39 | External Medical Summary ---
Author Name Unknown Address Unknown Organization K1G:LABORATORY [facility] - [address] [place] [phone] Laboratory Report Ordering Provider Test Date Status RITIKA MCDONALD 03/20/2023 01:03:44 Fin al Observation Date Value Abnormality Reference (Units ) Status TSH 03/20/2023 01:03:44 7.52 Above high normal 0. 27-4.20 (uIU/mL) Final Performing Location LABORATORY [facility] - [address] [place] [phone]
--- OUTSIDE RECORDS SUMMARY | 2023-03-30 03:39 | External Medical Summary ---
Author Name Unknown Address Unknown Organization K1G:LABORATORY [facility] - [address] [place] [phone] Laboratory Report Ordering Provider Test Date Status ELMER WU 03/28/2023 16:57:07 Final Cutoff Concentrations:
D rug Level
Amphetamines 500 ng/mL
Barbiturates 300 ng/mL
Benzodiazepines 300 ng/mL
Cannabinoids 50 ng/mL
Cocaine Metabolite 300 ng/mL
Morphine / Codeine 300 ng/mL
Methadone 300 ng/mL
Oxycodone 100 ng/mL

Screening results are presumptive and can only be used for medical purposes. Positive screening results are reflexed to confirmatory testing. Observation Date Value Abnormality Reference (Units ) Status Amphetamines, Urine screen 03/28/2023 16:57:07 Negative Negative Final Barbiturates, Urine 03/28/2023 16:57:07 Negative Negative Final Benzodiazepines, Urine screen 03/28/2023 16:57:07 Positive Abnormal Negative Final Cannabinoids, Urine screen 03/28/2023 16:57:07 Positive Abnormal Negative Final Cocaine Metabolite, Urine screen 03/28/2023 16:57:07 Negative Negative Final Methadone [Presence] in Urine 03/28/2023 16:57:07 Negative Negative Final Opiates, Urine screen 03/28/2023 16:57:07 Negative Negative Final oxyCODONE [Presence] in Urine by Screen method 03/28/2023 16:57:07 Negative Negative Final Performing Location LABORATORY [facility] - [address] [place] [phone]
--- OUTSIDE RECORDS SUMMARY | 2023-03-30 03:39 | External Medical Summary ---
Author Name Unknown Address Unknown Organization K01:[facility] [address] [facility] [address] Laboratory Report Ordering Provider Test Date Status RITIKA MCDONALD 03/20/2023 01:03:26 Fin al Cutoff Concentration:
D rug Level
THC-COOH 10 ng/mL

This test was developed and its performance characteristics determined by [employer]. It has not been cleared or approved by the [place] Food and Drug Administration.
null Observation Date Value Abnormality Reference (Units ) Status METHODOLOGY 03/20/2023 01:03:26 LC-MS/MS Final Cannabinoids, Urine confirmatory 03/20/2023 01:03:26 11 Above high normal Negative (ng/mL) Final Performing Location [facility] [address] [facility] [address]
--- OUTSIDE RECORDS SUMMARY | 2023-03-30 03:39 | External Medical Summary ---
Author Name Unknown Address Unknown Organization K1G:LABORATORY [facility] - [address] [place] [phone] Laboratory Report Ordering Provider Test Date Status RITIKA MCDONALD 03/20/2023 01:02:00 Fin al Observation Date Value Abnormality Reference (Units ) Status Troponin T 03/20/2023 01:02:00 6 <=22 (ng/ L) Final Performing Location LABORATORY [facility] - [address] [place] [phone]
--- OUTSIDE RECORDS SUMMARY | 2023-03-30 03:39 | External Medical Summary ---
Author Name Unknown Address Unknown Organization K1G:LABORATORY [facility] - [address] [place] [phone] Laboratory Report Ordering Provider Test Date Status BRYCEELMER 03/28/2023 16:57:07 Final Observation Date Value Abnormality Reference (Units ) Status RBC, Urine 03/28/2023 16:57:07 3-5 Abnormal 0-2 (/HPF) Final WBC, Urine 03/28/2023 16:57:07 0-2 0-2 (/HPF) Final Bacteria [#/area] in Urine sediment by Microscopy high power field 03/28/2023 16:57:07 26-50 Abnormal 0-25 (/HPF) Final Mucus, Urine 03/28/2023 16:57:07 Many Abnormal None (/HPF) Final Spermatozoa [#/area] in Urine sediment by Microscopy high power field 03/28/2023 16:57:07 Present Abnormal None (/HPF) Final Performing Location LABORATORY [facility] - [address] [facility] [address]
--- OUTSIDE RECORDS SUMMARY | 2023-03-30 03:40 | External Medical Summary | Summary of Care ---
Author Name Unknown Organization [facility] Address [address] [place] [address] Phone [phone] Care Team Providers Care [employer] Stewardess Name Role Phone Venecia Cabrera PA-C Primary Care Provider Reason for Visit * Reason Comments Dosage Adjustment Via Phone (anticoag Cl inic) Left Message Encounter Details Date Type Department Care Team Description 12/09/2022 Pharmacy Hepatology, [place] [address], [place] [phone] [place], Pharmacist Hepatology [address], [place] [phone] Chronic hepatitis C without hepatic coma (HCC)* Allergies Active Allergy Reactions Severity Noted Date Comments Lactose 01/11/2007 Risperidone Medium 05/25/2018 Other reaction(s): Hives / Urticaria, weak in legs documented as of this encounter (statuses as of 12/08/2022) Medications Medication Sig Dispensed Refills Start Date End Date Status Cyclobenzaprine HCl 5 MG Oral Tablet (Flexeril)Indicatio ns:Acute left-sided low back pain with left-sided sciatica 1-2 tabs 3 times a day for back pain 45 Tablet 0 05/07/2022 Active Penicillin V Potassium 500 MG Oral Tablet (Veetids) Take 1 Tablet by mouth in the morning and 1 Tablet at noon and 1 Tablet in the evening and 1 Tablet before bedtime. 0 05/26/2022 Active Hydrocortisone 2.5 % External Cream Apply topically to affected area 3 times a day. To affected area. 30 g 5 05/27/2022 Active Chlorhexidine Gluconate 0.12 % Mouth/Throat Solution (Periogard) RINSE WITH 1/2 OZ (15 ML) TWICE DAILY FOR 30 SECONDS 0 05/26/2022 Active metFORMIN HCl 1000 MG Oral Tablet (Glucophage) Take 1 Tablet by mouth 2 times a day with morning and evening meals. 200 Tablet 1 09/30/2022 Active documented as of this encounter (statuses as of 12/08/2022) Active Problems Problem Noted Date Body mass index (BMI) of 45.0 to 49.9 in adult 06/21/2022 Overview: Per Obesity protocol Mixed hyperlipidemia 05/27/2022 Morbid obesity due to excess calories Tobacco abuse 05/13/2021 Neck pain 05/13/2021 Chronic low back pain with left-sided sc iatica 05/13/2021 Essential hypertension with goal blood p ressure less than 140/90 05/13/2021 Type 2 diabetes mellitus with hemoglobin A1c goal of less than 7.0% 05/13/2021 Obstructive sleep apnea of adult 022 Diabetes mellitus without complication 0 05/13/2021 documented as of this encounter (statuses as of 12/08/2022) Immunizations Name Administration Dates Next Due Hepatitis B Vaccine, Recombi nant, Adjuvanted, 20 mcg/mL (Heplisav-B) 08/25/2022,06/16/2022 documented as of this encounter Social History Tobacco Use Types Packs/Day Years Used Date Smoking Tobacco: Every Day Passive Smoke Exposure: Current Smokeless Tobacco: Former Chew Alcohol Use Standard Drinks/Week Comments Yes 0 (1 standard drink = 0.6 oz pur e alcohol) occasional Alcohol Habits Answer Date Recorded How often do you have a drink containing alcohol ? 2-4 times a month 01/12/2021 How many drinks containing a lcohol do you have on a typical day when you are drinking? 10 or more 01/12/2021 How often do you have six or more drinks on one occasion? Weekly 01/12/2021 Sex Assigned at Date Recorded Not on file Job Start Date Occupation Industry Not on file Not on file Not on file documented as of this encounter Progress Notes * Salena Awan [facility] - 12/08/2022 12:04 PM EDT MTM Hepatitis C Treatment Follow-Up Patient Name: Wilman Maynard Lab reminder phone call #2 Treatment Overview: Hepatology Provider: Douglas Regalado MD Treatment Plan: [place] for 8 weeks. Started Treatment: 07/13/2022 Finished Treatment: 09/14/2022 This is a phone call to remind the patient they are due for SVR blood work. The patient failed to show for the lab appointment at [facility] for 12/02/2022 Labs Due: 12/02/2022 Is the patient aware of the lab date:No. I called the mobile phone, but no answer; I left a messagereminding the patient to have blood work drawn at his local [facility] lab at his earliest convenience. I left my callback number for any questions or to schedule a lab appointment. MTM Plan: Will follow up once results are available to review. Salena Awan PharmD, [facility] Clinical Pharmacist, Hepatology 12/08/2022 12:05 PM documented in this encounter Plan of Treatment Upcoming Encounters Date Type Specialty Care Team Description 12/24/2022 Pharmacy Gastroenterology [place], Pharmacist Hepatology [address] [place] [phone] Health Maintenance Due Date Last Done Comments DISCUSS TOBACCO CESSATION (REFER TO SMARTSET #[id number]) 1974 COVID-19 Vaccine (#1) 1974 Pneumococcal Vaccine: Pediatrics (0 to 5 Years) and At-Risk Patients (6 to 64 Years) (1 - PCV) 1980 Depression Screening, Annual for Pts 12 and Over 1986 DIABETES-EYE EXAM 1992 DIABETES-FOOT EXAM 1992 DTaP,Tdap,and Td Vaccines (1 - Tdap) 1993 Cologuard 2019 Colonoscopy 2019 Colorectal Cancer Screening 2019 Fecal Occult Blood Test 2019 Sigmoidoscopy 2019 *BASELINE EKG FOR HTN 05/31/2022 Influenza Vaccine (FLU shot) (#1) 2022 HbA1c 03/22/2023 09/20/2022, 05/27/2022 Albumin/Creatinine Ratio 05/27/2023 05/27/2022 GFR 07/13/2023 07/12/2022, 05/12, 11/06/2020 Lipid Panel 05/27/2027 05/27/2022 Hepatitis B Completed 08/25/2022, 06/16/2022 Hepatitis C Screening Completed 09/20/2022 , 08/11/2022, 06/07/2022, Additional history exists GARDASIL-HPV IMMUNIZATION SERIES Aged Out No longer [...] coma documented in this encounter Care Teams [employer] Stewardess Relationship Specialty Start Date End Date Venecia Cabrera PA-C [address] [place] [address] PCP - General Physician Moss Bleacher 05/27/22 documented as of this encounter
--- OUTSIDE RECORDS SUMMARY | 2023-03-30 03:40 | External Medical Summary | Summary of Care ---
Author Name Unknown Organization [facility] Address [address] [facility] [place] [address] Phone [phone] Care Team Providers Care Sound Engineering Technician Name Role Phone Venecia Cabrera PA-C Primary Care Provider Reason for Visit * Reason Comments Cough Congestion chest Wheezing Generalized Body Aches Encounter Details Date Type Department Care Team Description 01/06/2023 Convenient Care Visit [facility] [place] [place] [phone] Raffi Bansal PA-C [address] [place] [address] Bronchitis, complicated* Allergies Active Allergy Reactions Severity Noted Date Comments Lactose 01/11/2007 Risperidone Medium 05/25/2018 Other reaction(s): Hives / Urticaria, weak in legs documented as of this encounter (statuses as of 01/06/2023) Medications Medication Sig Dispensed Refills Start Date End Date Status Cyclobenzaprine HCl 5 MG Oral Tablet (Flexeril)Indicat ions:Acute left-sided low back pain with left-sided sciatica 1-2 tabs 3 times a day for back pain 45 Tablet 0 05/07/2022 Active Promethazine-DM 6.25-15 MG/5ML Oral SyrupIndications: Bronchitis, complicated Take 5 mL by mouth 4 times a day as needed for Cough. 120 mL 1 01/06/2023 Active Azithromycin 250 MG Oral Tablet (Zithromax)Indica tions:Bronchitis, complicated Take 2 tabs by mouth on the first day, then 1 tab daily on days two through five 6 Tablet 0 01/06/2023 3 Active methylPREDNISolon e 4 MG Oral Tablet Therapy Pack (Medrol Dosepack)Indicati ons:Bronchitis, complicated follow package directions 21 Tablet 0 01/06/2023 Active Penicillin V Potassium 500 MG Oral Tablet (Veetids) Take 1 Tablet by mouth in the morning and 1 Tablet at noon and 1 Tablet in the evening and 1 Tablet before bedtime. 0 05/26/2022 3 Discontinued Hydrocortisone 2.5 % External Cream Apply topically to affected area 3 times a day. To affected area. 30 g 5 05/27/2022 3 Discontinued Chlorhexidine Gluconate 0.12 % Mouth/Throat Solution (Periogard) RINSE WITH 1/2 OZ (15 ML) TWICE DAILY FOR 30 SECONDS 0 05/26/2022 3 Discontinued metFORMIN HCl 1000 MG Oral Tablet (Glucophage) Take 1 Tablet by mouth 2 times a day with morning and evening meals. 200 Tablet 1 09/30/2022 3 Discontinued documented as of this encounter (statuses as of 01/06/2023) Active Problems Problem Noted Date Body mass [...] as of this encounter (statuses as of 01/06/2023) Immunizations Name Administration Dates Next Due Hepatitis B Vaccine, Recombi nant, Adjuvanted, 20 mcg/mL (Heplisav-B) 08/25/2022,06/16/2022 documented as of this encounter Social History Tobacco Use Types Packs/Day Years Used Date Smoking Tobacco: Every Day Passive Smoke Exposure: Current Smokeless Tobacco: Former Chew Tobacco Cessation:Ready to Q uit: Not Asked; Counseling Given: Not Answered Alcohol Use Standard Drinks/Week Comments Yes 0 [...] Sign Reading Time Taken Comments Blood Pressure 142/92 01/06/2023 4:49 PM EDT Pulse 111 01/06/2023 4:49 PM EDT Temperature 35.8 C (96.4 F) 01/06/2023 4:49 PM ED T Respiratory Rate 20 01/06/2023 4:49 PM EDT Oxygen Saturation 98% 01/06/2023 4:49 PM EDT Inhaled Oxygen Concentration - - Weight 144.2 kg (317 lb 12.8 oz) 01/06/2023 4:49 PM EDT Height 175.3 cm (5' 9") 01/06/2023 4:49 PM EDT Body Mass Index 46.93 01/06/2023 4:49 PM EDT documented in this encounter Patient Instructions * Patient Instructions* Raffi Bansal PA-C - 01/06/2023 5:14 PM EDT Take the antibiotics as prescribed. Take otc mucinex to help with congestion. Saline nasal spray may be helpful as well. Return as needed. Follow-up with pcp. Take the prednisone as prescribed. Take this in the morning after breakfast. documented in this encounter Progress Notes * Raffi Bansal PA-C - 01/06/2023 5:06 PM EDT SUBJECTIVE: CC: Chief Complaint Patient presents with Cough Congestion chest Wheezing Generalized Body Aches HPI: Wilman Maynard is a 47 year old male who presents with cough, chest congestion, aches, wheezing. Symptoms for the last week. Getting worse. No known fevers but feels hot at times. Some shortness of breath. No chest pain. ? ROS ROS as noted in HPI PAST MEDICAL Hx: Past Medical History: Diagnosis Date Diabetes (HCC) Mixed hyperlipidemia 05/27/2022 PAST SURGICAL Hx: Past Surgical History: Procedure Laterality Date IR BIOPSY 07/12/2022 NONE SOCIAL Hx: Social History Socioeconomic History Marital status: Spouse name: Not on file Number of children: Not on file Years of education: Not on file Highest education level: Not on file Occupational History Not on file Tobacco Use Smoking status: Every Day Passive exposure: Current Smokeless tobacco: Former Types: Chew Vaping Use Vaping Use: Never used Substance and Sexual Activity Alcohol use: Yes Comment: occasional Drug use: Never Sexual activity: Not on file Other Topics Concern Not on file Social History Narrative Not on file Social Determinants of Health Financial Resource Strain: Not on file Food Insecurity: Not on file Transportation Needs: Not on file Physical Activity: Not on file Stress: Not on file Social Connections: Not on file Intimate Partner Violence: Not on file Housing Stability: Not on file FAMILY Hx: Family History Problem Relation Age of Onset Cirrhosis Father Heart attack Grandmother (Maternal) Heart attack Grandfather (Maternal) Heart attack Child CURRENT PROBLEM LIST: Patient Active Problem List Diagnosis Code Morbid obesity due to excess calories ([facility]) E66.01 Tobacco abuse Z72.0 Neck pain M54.2 Chronic low back pain with left-sided sciatica M54.42, G89.29 Essential hypertension with goal blood pressure less than 140/90 I10 Type 2 diabetes mellitus with hemoglobin A1c goal of less than 7.0% ([facility]) E11.9 Obstructive sleep apnea of adult G47.33 Diabetes mellitus without complication ([facility]) E11.9 Mixed hyperlipidemia E78.2 Body mass index (BMI) of 45.0 to 49.9 in adult ([facility]) Z68.42 MEDS & ALLERGIES: Current Outpatient Medications Medication Sig Dispense Refill Cyclobenzaprine HCl 5 MG Oral Tablet (Flexeril) 1-2 tabs 3 times a day for back pain 45 Tablet 0 Promethazine-DM 6.25-15 MG/5ML Oral Syrup Take 5 mL by mouth 4 times a day as needed for Cough. 120mL 1 Azithromycin 250 MG Oral Tablet (Zithromax) Take 2 tabs by mouth on the first day, then 1 tab dailyon days two through five 6 Tablet 0 methylPREDNISolone 4 MG Oral Tablet Therapy Pack (Medrol Dosepack) follow package directions 21 Tablet 0 No current facility-administered medications for this visit. Review of patient's allergies indicates: Allergen Reactions Risperidone Other reaction(s): Hives / Urticaria, weak in legs Lactose OBJECTIVE: VS: BP 142/92 | Pulse 111 | Temp 35.8 C (96.4 F) (Tympanic) | Resp 20 | Ht 1.753 m (5' 9") | Wt(!) 144.2 kg (317 lb 12.8 oz) | SpO2 98% | BMI 46.93 kg/m | BSA 2.65 m Wt Readings from Last 1 Encounters: 01/06/23 (!) 144.2 kg (317 lb 12.8 oz) General: alert, healthy, and no distress Ears: External ears normal, Canals clear, TM's Normal Nose: no mucosal erythema, no mucosal edema, purulent rhinorrhea Oropharynx: no exudate, no erythema, lips, buccal mucosa, and tongue normal, and mucous membranes are moist Lymph: no palpable lymphadenopathy Heart: regular rate & rhythm, no murmur, and no gallops Lungs: chest symmetric with normal AP diameter, no chest deformities noted, no chest wall tenderness, expiratory wheezes bilaterally, scattered rhonchi bilaterally ASSESSMENT/PLAN(s): Bronchitis, complicated (Primary) - Promethazine-DM 6.25-15 MG/5ML Oral Syrup; Take 5 mL by mouth 4 times a day as needed for Cough. - Azithromycin 250 MG Oral Tablet (Zithromax); Take 2 tabs by mouth on the first day, then 1 tab daily on days two through five - methylPREDNISolone 4 MG Oral Tablet Therapy Pack (Medrol Dosepack); follow package directions Covid test declined Patient to follow up with PCP if symptoms persist or worsen. Plan of care & discharge instructions were discussed, & the patient verbalized understanding. Raffi Bansal PA-C [address] [address] documented in this encounter Nursing Notes * Svetlana Villeda LPN - 01/06/2023 4:51 PM EDT Wilman Maynard is a 47 year old male who presents to walk-in clinic today complaining of Chief Complaint Patient presents with Cough Congestion chest Wheezing Generalized Body Aches Main Symptoms:Patient presents today for cough, chest congestion, wheezing and generalized body aches that started x1 week ago. Tried: Thera Flu, Day Quil, Ny Quil, and allergy medication OTC Pt accompanied by: self documented in this encounter Plan of Treatment Upcoming Encounters Date Type Specialty Care Team Description 01/20/2023 Pharmacy Gastroenterology [place], Pharmacist [facility] [place] [address] Health Maintenance Due Date Last Done Comments DISCUSS TOBACCO CESSATION (REFER TO SMARTSET #3368) 1974 COVID-19 Vaccine (#1) 1974 Pneumococcal Vaccine: Pediatrics (0 to 5 Years) and At-Risk Patients (6 to 64 Years) (1 - PCV) 1980 Depression Screening 1986 DIABETES-EYE EXAM 1992 Diabetic Foot Exam 1992 DTaP,Tdap,and Td Vaccines (1 - Tdap) 1993 Cologuard 2019 Colonoscopy 2019 Colorectal Cancer Screening 2019 Fecal Occult Blood Test 2019 Sigmoidoscopy 2019 *BASELINE EKG FOR HTN 05/31/2022 Influenza Vaccine (FLU shot) (#1) 2022 HbA1c 03/22/2023 09/20/2022, 05/27/2022 Albumin/Creatinine Ratio 05/27/2023 05/27/2022 GFR 07/13/2023 07/12/2022, 05/27/2022, 11/06/2020 Lipid Panel 05/27/2027 05/27/2022 Hepatitis B Completed 08/25/2022, 06/16/2022 GARDASIL-HPV IMMUNIZATION SERIES Aged Out No longer eligible b ased on patient's age to complete this topic MENINGOCOCCAL (MENACTRA/MENVEO) Aged Out No longer eligible b ased on patient's age to complete this topic documented as of this encounter Medical Devices Not on filedocumented as of this encounter Visit Diagnoses Diagnosis Bronchitis, complicated- Primary Bronchitis, not specified as acute or chronic documented in this encounter Care Teams Sound Engineering Technician Relationship Specialty Start Date End Date Venecia Cabrera PA-C [address] [place] [address] PCP - General Physician Tube Blower 05/27/22 documented as of this encounter
--- OUTSIDE RECORDS SUMMARY | 2023-03-30 03:40 | External Medical Summary | Summary of Care ---
Author Name Unknown Organization [facility] Address [address] [place] [address] Phone [phone] Care Team Providers Care Rig Builder Helper Name Role Phone Venecia Cabrera PA-C Primary Care Provider Reason for Referral * Evaluate & Treat - Unlimited Visits (Within 30 days (routine)) - Pending Review Specialty Diagnoses / Procedures Referred By Contmendy t Referred To Contact Pharmacist / Pharmacy Diagnoses Type 2 diabetes mellitus with hemoglobin A1c goal of less than 7.0% ([facility]) Chayito Welsh PA-C [address] [place] [id number] Referral ID Status Reason Start Date Expiration Date Visits Requested Visits Authorized [id number] Pending Review Specialty Services Required 03/14/2023 99 99 Question Answer Referral Priority Within 30 days (routine) Where should this appointment be scheduled? [facility] Department: Primary Care Reason for Referral: DM Target A1c: < 7 Comments Pharmacist Medication Therapy Management: Minimum frequency patient should be seen in person for medication management: as appropriate per clinical condition and patient status By my signature, I understand that my patient Wilman Maynard will have his medication therapy managed by the [facility] Medication Therapy [facility] ([facility]) per established policies, procedures, and protocols. I also certify that this referral may serve as an initiation of service for the management of drug therapy in the above noted patient. [facility] providers will be responsible for scheduling patient visits, obtaining appropriate laboratory studies, and adjusting medication management therapy per patient's need, in addition to those roles spelled out in the clinic policy, procedures, and drug management protocols. I understand that the service provided by the [facility] is voluntary and have informed patient that they can refuse the service at their discretion. I am aware that the [facility] will provide me with a copy of the patient encounter via my [employer]. I authorize the [facility] to carry out these activities on my behalf. I consider this program to be a necessary part of the patient's medical care. Chayito Welsh PA-C Reason for Visit * Reason Comments Follow Up Encounter Details Date Type Department Care Team ([facility] Contact Info) Description 03/14/2023 1:20 PM EST Telemedicine [facility] [address] [place] [phone] Chayito Welsh PA-C [address] [place] [phone] Type 2 diabetes mellitus with hemoglobin A1c goal of less than 7.0% ([facility])* Allergies Active Allergy Reactions Criticality Noted Date Comments Lactose 01/11/2007 Risperidone Medium 05/25/2018 Other reaction(s): Hives / Urticaria, weak in legs documented as of this encounter (statuses as of 03/14/2023) Medications Medication Sig Dispensed Refills Start Date End Date Status Cyclobenzaprine HCl 5 MG Oral Tablet (Flexeril)Indicatio ns:Acute left-sided low back pain with left-sided sciatica 1-2 tabs 3 times a day for back pain 45 Tablet 0 05/07/2022 Active Promethazine-DM 6.25-15 MG/5ML Oral SyrupIndications:Br onchitis, complicated Take 5 mL by mouth 4 times a day as needed for Cough. 120 mL 1 01/06/2023 Active methylPREDNISolone 4 MG Oral Tablet Therapy Pack (Medrol Dosepack)Indication s:Bronchitis, complicated follow package directions 21 Tablet 0 01/06/2023 Active metFORMIN HCl ER 500 MG Oral Tablet Extended Release 24 Hour (Glucophage XR) Take 1 Tablet by mouth in the morning and 1 Tablet before bedtime. 180 Tablet 3 03/14/2023 Active OneTouch Verio In Vitro Strip (Glucose Blood) Use up to 4 times a day E11.9 100 Strip 11 03/14/2023 Active documented as of this encounter (statuses as of 03/14/2023) Active Problems Problem Noted Date Diagnosed Date [...] as of this encounter (statuses as of 03/14/2023) Immunizations Name Administration Dates Next Due Hepatitis [...] as of this encounter Progress Notes * Chayito Welsh PA-C - 03/14/2023 1:17 PM EST Patient location: HOME. I was in a hospital or clinic location. After connecting through [employer],patient was verified with two unique identifiers. Patient (or authorized legal labor union business representative) was then informed that this was a Telemedicine visit and being conducted confidentially over secure lines. Methods to assure confidentiality were taken. Patient acknowledged consent and understanding of pr ivacy and security of the Telemedicine visit. The patient agreed to participate. Subjective: Wilman Maynard is a 47 year old male. No chief complaint on file. HPI: 47 year old male with DM II, Hepatitis C, EVARISTO, hyperlipidiemia, obesity and prior diagnosis of htn presents via telemedicine for "erratic sugars" Reports he does not always take his metformin. Reports glucose has been 200-300. Currently on Metformin 500mg BID. Reports he does notice diarrhea with this medication. Denies any abdominal pain. Patient established care in May and Ha1c was 8.3 at that time. He was started on metformin with plan to repeat A1c in 3 months. Patient admits he wasn't keeping up with appointments and wasn't taking his metformin. PMH: Patient Active Problem List Diagnosis Code Morbid obesity due to excess calories ([facility]) E66.01 Tobacco abuse Z72.0 Neck pain M54.2 Chronic low back pain with left-sided sciatica M54.42, G89.29 Essential hypertension with goal blood pressure less than 140/90 I10 Type 2 diabetes mellitus with hemoglobin A1c goal of less than 7.0% ([facility]) E11.9 Obstructive sleep apnea of adult G47.33 Diabetes mellitus without complication ([facility]) E11.9 Mixed hyperlipidemia E78.2 Body mass index (BMI) of 45.0 to 49.9 in adult ([facility]) Z68.42 Current Outpatient Medications Medication Sig Dispense Refill Cyclobenzaprine HCl 5 MG Oral Tablet (Flexeril) 1-2 tabs 3 times a day for back pain 45 Tablet 0 Promethazine-DM 6.25-15 MG/5ML Oral Syrup Take 5 mL by mouth 4 times a day as needed for Cough. 120mL 1 methylPREDNISolone 4 MG Oral Tablet Therapy Pack (Medrol Dosepack) follow package directions 21 Tablet 0 No current facility-administered medications for this visit. Review of patient's allergies indicates: Allergen Reactions Risperidone Other reaction(s): Hives / Urticaria, weak in legs Lactose Objective: There were no vitals taken for this visit. General: alert, does not appear in distress Lungs: No conversational dyspnea. No evidence of labored breathing Skin: no obvious lesions or rashes on face Neuro Exam: alert & oriented x 3 with fluent speech ASSESSMENT: Type 2 diabetes mellitus with hemoglobin A1c goal of less than 7.0% ([facility]) (Primary) - PHARMACIST MEDS THERAPY MGMT REFERRAL OP Other orders - metFORMIN HCl ER 500 MG Oral Tablet Extended Release 24 Hour (Glucophage XR); Take 1 Tablet by mouth in the morning and 1 Tablet before bedtime. - OneTouch Verio In Vitro Strip (Glucose Blood); Use up to 4 times a day E11.9 Follow Up: Return in about 1 month (around 04/14/2023), or if symptoms worsen or fail to improve, forf/u with pcp within 1 months , Labs Today. | For: f/u with pcp within 1 months , Labs Today Plan: Emphasized with patient the importance of optimal glucose control. We will switch metformin to extended release avoid adverse GI effects. Encouraged patient to continue checking glucose and notify us if greater than 200 consistently. Patient encouraged to have his hemoglobin A1c checked at his earliest convenience. [facility] pharmacy referral also placed. I spent a total of 20-29 minutes (exact time 21 mins) on the date of service in preparation, delivery, and documentation of the care provided to Wilman Maynard excluding any time spent in the performance of separately billed services. Chayito Welsh PA-C documented in this encounter Plan of Treatment Upcoming Encounters Date Type Department Care Team (Late st Contact Info) Description 03/24/2023 7:10 AM EST Pharmacy Hepatology, [place] [address] [place] [address] [place], Pharmacist Hepatology [address] [place] [address] Scheduled Referrals Name Type Priority Associated Diagnoses Orde r Schedule PHARMACIST MEDS THERAPY MGMT REFERRAL OP Referral Within 30 days (routine) Type 2 diabetes mellitus with hemoglobin A1c goal of less than 7.0% (HCC) Ordered: 03/14/2023 Health Maintenance Due Date Last Done Comments DISCUSS TOBACCO CESSATION (REFER TO SMARTSET #6942) 1974 COVID-19 Vaccine (#1) 1974 Pneumococcal Vaccine: [...] as of this encounter Visit Diagnoses Diagnosis Type 2 diabetes mellitus with hemoglobin A1c goal of less than 7.0% (HCC)- Primary documented in this encounter Care Teams Rig Builder Helper Relationship Specialty Start Date End Date Venecia Cabrera PA-C [address] [place] [address] PCP - General Physician Exhibit Technician 05/27/22 documented as of this encounter
--- OUTSIDE RECORDS SUMMARY | 2023-03-30 03:40 | External Medical Summary | Summary of Care ---
Author Name Unknown Organization [facility] Address [address] [place] [address] Phone [phone] Care Team Providers Care Combiner Name Role Phone Venecia Cabrera PA-C Primary Care Provider Reason for Visit * Reason Comments Dosage Adjustment Via Phone (anticoag Cl inic) Status Check Encounter Details Date Type Department Care Team Description 01/20/2023 Pharmacy Hepatology, [place] [address], [place] [id number] [place], Pharmacist Hepatology [address], [place] [phone] Chronic hepatitis C without hepatic coma (HCC)* Allergies Active Allergy Reactions Severity Noted Date Comments Lactose 01/11/2007 Risperidone Medium 05/25/2018 Other reaction(s): Hives / Urticaria, weak in legs documented as of this encounter (statuses as of 01/20/2023) Medications Medication Sig Dispensed Refills Start Date End Date Status Cyclobenzaprine HCl 5 MG Oral Tablet (Flexeril)Indication s:Acute left-sided low back pain with left-sided sciatica 1-2 tabs 3 times a day for back pain 45 Tablet 0 05/07/2022 Active Promethazine-DM 6.25-15 MG/5ML Oral SyrupIndications:Bro nchitis, complicated Take 5 mL by mouth 4 times a day as needed for Cough. 120 mL 1 01/06/2023 Active methylPREDNISolone 4 MG Oral Tablet Therapy Pack (Medrol Dosepack)Indications :Bronchitis, complicated follow package directions 21 Tablet 0 01/06/2023 Active documented as of this encounter (statuses as of 01/20/2023) Active Problems Problem Noted Date Body mass [...] as of this encounter (statuses as of 01/20/2023) Immunizations Name Administration Dates Next Due Hepatitis [...] of this encounter Progress Notes * Salena Awan, [facility] - 01/20/2023 8:46 AM EDT MTM Hepatitis C Treatment Follow-Up Patient Name: Wilman Maynard Lab reminder phone call #[phone] Treatment Overview: Hepatology Provider: Douglas Regalado MD Treatment Plan: [place] for 8 weeks. Started Treatment: 07/13/2022 Finished Treatment: 09/14/2022 This is a phone call to remind the patient they are due for SVR blood work. The patient failed to show for the lab appointment at [facility] for 12/02/2022 The patient failed to respond to the letter mailed to his house. Labs Due: 12/02/2022 Is the patient aware of the lab date:Yes. I called the mobile phone and spoke with the patient. He stated he currently does not have transportation, so I provided the phone number for [facility] and encouraged him to call to enroll. I also reminded him once he has transportation to stop at any local [facility] lab to have the blood work drawn at his earliest convenience and he'll be contacted with the results. MTM Plan: Will follow up once results are available to review. Maya MalcolmD, [facility] Clinical Pharmacist, Hepatology 01/20/2023 1:01 PM documented in this encounter Plan of Treatment Upcoming Encounters Date Type Specialty Care Team Description 03/24/2023 Pharmacy Gastroenterology [place], Pharmacist Hepatology [facility] [place] [address] Health Maintenance Due Date Last Done Comments DISCUSS TOBACCO CESSATION (REFER TO SMARTSET #6566) 1974 COVID-19 Vaccine (#1) 1974 Pneumococcal Vaccine: [...] coma documented in this encounter Care Teams Combiner Relationship Specialty Start Date End Date Venecia Cabrera PA-C [address] [place] [phone] PCP - General Physician Retrimmer 05/27/22 documented as of this encounter
--- OUTSIDE RECORDS SUMMARY | 2023-03-30 03:40 | External Medical Summary | Summary of Care ---
Author Name Unknown Organization [facility] Address [address] [place] [address] Phone [phone] Care Team Providers Care Hat Lacer Name Role Phone Venecia Cabrera PA-C Primary Care Provider Reason for Visit * Reason Onset Date Comments Test Results Lab 09/30/2022 Encounter Details Date Type Department Care Team Description 09/30/2022 Telephone [facility] [address] [place] [address] Venecia Cabrera PA-C [address] [place] [address] Test Results Lab Allergies Active Allergy Reactions Severity Noted Date Comments Lactose 01/11/2007 Risperidone Medium 05/25/2018 Other reaction(s): Hives / Urticaria, weak in legs documented as of this encounter (statuses as of 10/01/2022) Medications Medication Sig Dispensed Refills Start Date End Date Status Cyclobenzaprine HCl 5 MG Oral Tablet (Flexeril)Indica tions:Acute left-sided low back pain with left-sided sciatica [...] evening meals. 200 Tablet 1 09/30/2022 Active metFORMIN HCl 500 MG Oral Tablet (Glucophage) Take 1 Tablet by mouth 2 times a day with morning and evening meals. 200 Tablet 1 09/15/2022 09/30/2022 Discontinued (Refill) documented as of this encounter (statuses as of 10/01/2022) Active Problems Problem Noted Date Body mass [...] as of this encounter (statuses as of 10/01/2022) Immunizations Name Administration Dates Next Due Hepatitis [...] on file documented as of this encounter Miscellaneous Notes * Telephone Encounter - Amber Chris - 10/01/2022 10:34 AM EDT LMOM asking pt to call back and schedule. Please assist pt with scheduling f/u in 3-4 months when he calls back. * Telephone Encounter - Venecia Cabrera PA-C - 09/30/2022 4:19 PM EDT Med sent, please assist with appt * Telephone Encounter - Eva Solis LPN - 09/30/2022 3:55 PM EDT Venecia - Pt aware of below message. Agreeable to below plan. Advised no fasting required - if this is incorrect pt will need to be made aware. Par - please assist with scheduling appointment as noted below * Telephone Encounter - Venecia Cabrera PA-C - 09/30/2022 8:05 AM EDT Please notify patient of below unread mychart message: Wilman, Your A1c is a little better but I would like you to increase your metformin to 1000mg twice daily (two pills twice daily). I would like to repeat your labs in about 3-4 months and have you be seen inthe office for review. Do you agree with this plan? Venecia Cabrera PA-C documented in this encounter Plan of Treatment Upcoming Encounters Date Type Specialty Care Team Description 11/30/2022 Pharmacy Gastroenterology [place], Pharmacist Hepatology [address] [place] [address] 12/09/2022 Pharmacy Gastroenterology [place], Pharmacist Hepatology [address] [place] [address] Scheduled Orders Name Type Priority Associated Diagnoses Orde r Schedule HEMOGLOBIN A1C Lab Routine Type 2 diabetes mellitus with hemoglobin A1c goal of less than 7.0% (HCC) Expected: 12/31/2022 (Approximate), Expires: 09/30/2023 Health Maintenance Due Date Last Done Comments DISCUSS TOBACCO CESSATION (REFER TO SMARTSET #8543) 1974 COVID-19 Vaccine (#1) 1975 Pneumococcal Vaccine: [...] FOR HTN 05/31/2022 Influenza Vaccine (FLU shot) (Season Ended) 2022 HbA1c 03/22/2023 09/20/2022, 05/27/2022 Albumin/Creatinine Ratio [...] Primary documented in this encounter Care Teams Hat Lacer Relationship Specialty Start Date End Date Venecia Cabrera PA-C [address] [place] [address] PCP - General Physician Comber Tender 05/27/22 documented as of this encounter
--- OUTSIDE RECORDS SUMMARY | 2023-03-30 03:40 | External Medical Summary | Summary of Care ---
Author Name Unknown Organization [facility] Address [address] [place] [address] Phone [phone] Care Team Providers Care Manager New Product Name Role Phone Venecia Cabrera PA-C Primary Care Provider Reason for Visit * Reason Comments Dosage Adjustment Via Phone (anticoag Cl inic) Appointment Encounter Details Date Type Department Care Team Description 11/30/2022 Pharmacy Hepatology, [place] [address], [place] [id number] [place], Pharmacist Hepatology [address], [place] [id number] Chronic hepatitis C without hepatic coma (HCC)*; Immunity status testing Allergies Active Allergy Reactions Severity Noted Date Comments Lactose 01/11/2007 Risperidone Medium 05/25/2018 Other reaction(s): Hives / Urticaria, weak in legs documented as of this encounter (statuses as of 11/30/2022) Medications Medication Sig Dispensed Refills Start Date [...] as of this encounter (statuses as of 11/30/2022) Active Problems Problem Noted Date Body mass [...] as of this encounter (statuses as of 11/30/2022) Immunizations Name Administration Dates Next Due Hepatitis [...] this encounter Progress Notes * Salena Awan [facility] - 11/30/2022 8:36 AM EDT MTM Hepatitis C Treatment Follow-Up Patient Name: Wilman Maynard Lab reminder phone call Treatment Overview: Hepatology Provider: Douglas Regalado MD Treatment Plan: Mavyret for 8 weeks. Started Treatment: 07/13/2022 Finished Treatment: 09/14/2022 This is a phone call to remind the patient they are due for SVR blood work. Labs Due: 12/02/2022 Is the patient aware of the lab date:Yes. I called the mobile phone and spoke with the patient. He agreed to schedule a lab appointment at [facility] for 12/02/2022 @3 pm. MTM Plan: Will follow up once results are available to review. Lab ordered: [facility] Salena Awan PharmD, [facility] Clinical Pharmacist, Hepatology 11/30/2022 10:55 AM documented in this encounter Plan of Treatment Upcoming Encounters Date Type Specialty Care Team Description 12/02/2022 Laboratory [facility] [place], [facility] [place] [address] [place] [address] 12/09/2022 Pharmacy Gastroenterology [place], Pharmacist Hepatology [address] [place] [id number] Scheduled Orders Name Type Priority Associated Diagnoses Orde r Schedule HEPATITIS B SURFACE ANTIBODY Lab Routine Immunity status testing Expected: 12/02/2022 (Approximate), Expires: 08/13/2023 Health Maintenance Due Date Last Done Comments DISCUSS TOBACCO CESSATION (REFER TO SMARTSET #8790) 1974 COVID-19 Vaccine (#1) 1974 Pneumococcal Vaccine: [...] hepatitis C without mention of hepatic coma Immunity status testing Antibody response examination documented in this encounter Care Teams Manager New Product Relationship Specialty Start Date End Date Venecia Cabrera PA-C [address] [place] [address] PCP - General Physician Business Job Titles 05/27/22 documented as of this encounter
--- OUTSIDE RECORDS SUMMARY | 2023-03-30 03:40 | External Medical Summary | Summary of Care ---
Author Name Unknown Organization [facility] Address [address] [place] [address] Phone [phone] Care Team Providers Care Public Relations Manager Name Role Phone Venecia Cabrera PA-C Primary Care Provider Reason for Referral * Evaluate & Treat - Unlimited Visits (Within 30 days (routine)) - Pending Review Specialty Diagnoses / Procedures Referred By Contmendy t Referred To Contact Pharmacist / Pharmacy Diagnoses Type 2 diabetes mellitus with hemoglobin A1c goal of less than 7.0% ([facility]) Chayito Welsh PA-C [address] [place] [id number] Referral ID Status Reason Start Date Expiration Date Visits Requested Visits Authorized [id number] Pending Review Specialty Services Required 03/14/2023 99 [phone] Question Answer Referral Priority Within 30 days (routine) Where should this appointment be scheduled? [facility] Department: Primary Care Reason for Referral: DM Target A1c: < 7 Comments Pharmacist Medication Therapy Management: Minimum frequency patient should be seen in person for medication management: as appropriate per clinical condition and patient status By my signature, I understand that my patient Wilman Maynard will have his medication therapy managed by the [facility] ([facility]) per established policies, procedures, and protocols. I also certify that this referral may serve as an initiation of service for the management of drug therapy in the above noted patient. [facility] providers will be responsible for scheduling patient visits, obtaining appropriate laboratory studies, and adjusting medication management therapy per patient's need, in addition to those roles spelled out in the clinic policy, procedures, and drug management protocols. I understand that the service provided by the [facility] Clinic is voluntary and have informed patient that they can refuse the service at their discretion. I am aware that the [facility] will provide me with a copy of the patient encounter via my [employer]. I authorize the [facility] to carry out these activities on my behalf. I consider this program to be a necessary part of the patient's medical care. Chayito Welsh PA-C Reason for Visit * Reason Comments Follow Up Encounter Details Date Type Department Care Team ([facility] Contact Info) Description 03/14/2023 1:20 PM EST Telemedicine [facility] [address] [place] [phone] Chayito Welsh PA-C [address] [place] [id number] Type 2 diabetes mellitus with hemoglobin A1c goal of less than 7.0% ([facility])* Allergies Active Allergy Reactions Criticality Noted Date Comments Lactose 01/11/2007 Risperidone Medium 05/25/2018 Other reaction(s): Hives / Urticaria, weak in legs documented as of this encounter (statuses as of 03/15/2023) Medications Medication Sig Dispensed Refills Start Date [...] as of this encounter (statuses as of 03/15/2023) Active Problems Problem Noted Date Diagnosed Date [...] as of this encounter (statuses as of 03/15/2023) Immunizations Name Administration Dates Next Due Hepatitis [...] hospital or clinic location. After connecting through [employer],patient was verified with two unique identifiers. Patient (or authorized legal equal opportunity representative) was then informed that this was [...] Code Morbid obesity due to excess calories ([facility]) E66.01 Tobacco abuse Z72.0 Neck pain M54.2 Chronic low back pain with left-sided sciatica M54.42, G89.29 Essential hypertension with goal blood pressure less than 140/90 I10 Type 2 diabetes mellitus with hemoglobin A1c goal of less than 7.0% ([facility]) E11.9 Obstructive sleep apnea of adult G47.33 Diabetes mellitus without complication ([facility]) E11.9 Mixed hyperlipidemia E78.2 Body mass index (BMI) of 45.0 to 49.9 in adult ([facility]) Z68.42 Current Outpatient Medications Medication Sig Dispense [...] hemoglobin A1c goal of less than 7.0% ([facility]) (Primary) - PHARMACIST MEDS THERAPY MGMT REFERRAL [...] hemoglobin A1c checked at his earliest convenience. [facility] pharmacy referral also placed. I spent a [...] Description 03/24/2023 7:10 AM EST Pharmacy Hepatology, [place] [address] [place] [address] [place], Pharmacist Hepatology [address] [place] [address] Scheduled Referrals Name Type Priority Associated Diagnoses Orde r Schedule PHARMACIST MEDS THERAPY MGMT REFERRAL OP Referral Within 30 days (routine) Type 2 diabetes mellitus with hemoglobin A1c goal of less than 7.0% (HCC) Ordered: 03/14/2023 Health Maintenance Due Date Last Done Comments DISCUSS TOBACCO CESSATION (REFER TO SMARTSET #2155) 1974 COVID-19 Vaccine (#1) 1974 Pneumococcal Vaccine: [...] Primary documented in this encounter Care Teams Public Relations Manager Relationship Specialty Start Date End Date Venecia Cabrera PA-C [address] [place] [address] PCP - General Physician Manager Data Warehouse 05/27/22 documented as of this encounter
--- OUTSIDE RECORDS SUMMARY | 2023-03-30 03:40 | External Medical Summary | Summary of Care ---
Author Name Unknown Organization [facility] Address [address] [place] [address] Phone [phone] Care Team Providers Care Technical Training Manager Name Role Phone Venecia Cabrera PA-C Primary Care Provider Reason for Visit * Reason Comments Dosage Adjustment Via Phone (anticoag Cl inic) Left Message Encounter Details Date Type Department Care Team Description 12/24/2022 Pharmacy Hepatology, [place] [address] [place], [place] [id number] [place], Pharmacist Hepatology [address] [place], [place] [phone] Chronic hepatitis C without hepatic coma (HCC)* Allergies Active Allergy Reactions Severity Noted Date Comments Lactose 01/11/2007 Risperidone Medium 05/25/2018 Other reaction(s): Hives / Urticaria, weak in legs documented as of this encounter (statuses as of 12/24/2022) Medications Medication Sig Dispensed Refills Start Date [...] as of this encounter (statuses as of 12/24/2022) Active Problems Problem Noted Date Body mass [...] as of this encounter (statuses as of 12/24/2022) Immunizations Name Administration Dates Next Due Hepatitis [...] this encounter Progress Notes * Salena Awan, [facility] - 12/24/2022 10:04 AM EDT MTM Hepatitis C Treatment Follow-Up Patient Name: Wilman Maynard Lab reminder phone call #3 Treatment Overview: Hepatology Provider: Douglas Regalado MD Treatment Plan: Mavyret for 8 weeks. Started Treatment: 07/13/2022 Finished Treatment: 09/14/2022 This is a phone call to remind the patient they are due for SVR blood work. The patient failed to show for the lab appointment at [facility] for 12/02/2022 Labs Due: 12/02/2022 Is the patient aware of the lab date:No. I called the mobile phone, but no answer; I left a messagereminding the patient to have blood work drawn at his local [facility] lab at his earliest convenience. I left my callback number for any questions or to schedule a lab appointment. MT Plan: Unable to contact the patient via phone; letter mailed to his house. Will follow up once results are available to review. Salena Awan PharmD, [facility] Clinical Pharmacist, Hepatology 12/24/2022 10:05 AM documented in this encounter Plan of Treatment Upcoming Encounters Date Type Specialty Care Team Description 01/20/2023 Pharmacy Gastroenterology [place], Pharmacist Hepatology [facility] [place] [address] Health Maintenance Due Date Last Done Comments DISCUSS TOBACCO CESSATION (REFER TO SMARTSET #3104) 1975 COVID-19 Vaccine (#1) 1975 Pneumococcal Vaccine: [...] coma documented in this encounter Care Teams Technical Training Manager Relationship Specialty Start Date End Date Venecia Cabrera PA-Roe [address] [place] [address] PCP - General Physician Medical Cost Consultant 05/27/22 documented as of this encounter
[2023-03-30] MEDS: lisinopril 2.5 MG TAB PO SCH (04:42)
[2023-03-30 04:45] LABS: BUN Creatinine Ratio 26.6 (10-20); Calcium 8.6 mg/dl (8.6-10.3); Creatinine Clr Calc Pharmacy 193.3 ml/min; Est GFR (African American) 133.3 ml/min; Potassium 3.8 mmol/L (3.5-5.1)
[2023-03-30 04:53] LABS: Basophils # (auto) 0.03 K/uL (0.00-0.20); Basophils % (auto) 0.4 %; Eosinophils # (auto) 0.15 K/uL (0.00-0.50); Eosinophils % (auto) 1.8 %; Hematocrit (blood only) 46.1 % (42.0-52.0); Hemoglobin 15.1 g/dl (14.0-18.0); Immature Granulocytes # (auto) 0.02 K/uL (0.01-0.20); Immature Granulocytes % (auto) 0.2 %; Lymphocytes # (auto) 1.76 K/uL (1.20-3.40); Lymphocytes % (auto) 21.5 %; Mean Corpuscular Hemoglobin 29.1 pg (25.0-34.0); Mean Corpuscular Hgb Conc 32.8 g/dL (32.0-36.0); Mean Corpuscular Volume 88.8 fL (80.0-100.0); Mean Platelet Volume 10.5 fL (9.4-12.4); Monocytes # (auto) 0.87 K/uL (0.11-0.59); Monocytes % (auto) 10.6 %; Neutrophils # (auto) 5.34 K/uL (1.40-6.50); Neutrophils % (auto) 65.5 %; Platelet Count 216 K/uL (130-400); RDW Coefficient of Variation 13.1 % (11.5-14.5); RDW Standard Deviation 42.8 fL (36.4-46.3); Red Blood Count 5.19 M/uL (4.70-6.10); White Blood Count 8.17 K/ul (4.8-10.8)
[2023-03-30] MEDS: PANTOprazole 40 MG TAB PO SCH (08:50)
[2023-03-30] MEDS: ENOXAPARIN INJ 40 MG/0.4 ML SYR SQ SCH (09:49)
--- NOTE | 2023-03-30 13:54 | Psychiatric Consultation ---
Date of Consultation March 30, 2023 Impression / Recommendations Impression 48 y/o man with no clear history prior to recently-intensifying anxiety and depression (though he could possibly have considerable history unavailable to us). He's had numerous ED visits in the past 11 days with GI complaints, CP, and confusion. He was admitted to [facility] after one such ED visit on 03/[address] [facility] ED twice yesterday for essentially those same complaints. He was using at least cannabis per a tox screen 2 days ago and had been using lorazepam fairly recently. He presents today as withdrawn, anergic, with limited communication. The potential differential diagnosis is vast, and it seems likely that there are multiple contributors to his current symptom set. The earliest- documented presentation was with complaint of depressed mood and it seems reasonable to impute a likely major depressive episode. He has also consistently reported anxiety, which could represent generalized anxiety disorder, panic disorder, or both. Cognitive symptoms were attributed to sertraline, but that was stopped 10 days ago, not long after it had been started, so that seems highly unlikely that it would be contributing to ongoing or worsening confusion now. Hospitalists have pronounced him medically stable. He certainly appears too depressed to go home. He should return to the [facility] to resume inpatient treatment that had begun the day before he came to the ED here and was admitted. Overall I spent a total of 97 minutes on the floor for this consultation assessment including review of chart records, review of test results, direct evaluation of the patient [id number], risk assessment, discussion with the psychiatric liaison nurse, and documentation in the electronic health record. (1) Depression: (2) Anxiety: Plan Avoid adding any psychiatric medication during this medical admission. By history pt is reported to have had unusual and severe adverse medication effects so any such additions should be undertaken in a closely-monitored specialized setting. Now that pt has been established as being medically stable, he should return to [facility], where he had been admitted just the day before he came to the ED here and was admitted medically, to resume assessment and treatment. Psych History Identifying Data BI MENDIOLA is a 48-year-old M with a history of depression, admitted on 03/30/2023 for encephalopathy and chest pain. Consult is by the hospitalist service for "psych med mx". Chief Complaint "OK". History of Present Illness As part of a thorough review of the available medical records, I appreciate the following note by the hospitalist with a timeline of recent events: "Medical history significant for hypertension, hyperlipidemia, EVARISTO, DM 2 on oral medications, HCV status post Rx, mood disorder, past history of substance abuse, ongoing tobacco abuse. 03/18 Patient seen at PCPs office for worsening depression in the last 3 weeks. Feeling anxious all the time. Patient denies suicidality. Intermittent chest pain and abdominal complaints separate from each other. Watery diarrhea. No fever, no chills. Patient started on sertraline by outpatient provider. 03/19-03/20 Overnight observation at [facility] ER for anxiety/panic attack. TSH noted to be elevated at 7.5. Patient prescribed as needed Ativan prescription. PCP later added BuSpar 3 times daily to regimen after patient requested for additional Ativan prescription. Increased agitation/trouble focusing with new medications as per patient family. Patient's sister attributes problem to sertraline. Patient not being able to get words out. Sertraline discontinued by patient/family. 03/28 Patient directed to [facility] ER by PCP's office for manic behavior, increased agitation/anxiety, not being able to communicate since ER visit a week ago. Cannabis noted on urine drug screen. Parainfluenza noted on viral screen. Patient transferred to the local [facility] psychiatric facility. Patient sent to the [facility] ER for evaluation yesterday from the [facility] for chest pain and disorientation complaints. Patient subsequently discharged back to facility. Increased disorientation noted at psychiatric facility. Patient complaining of worsening abdominal pain. SBP 160s, heart rate 110s. Patient brought back to ER for evaluation." Review of the medical record reveals no previous or outside psychiatric records nor any other records apart from notes from the 2 ED presentations here yesterday. It's not clear whether pt has any psychiatric history predating a month or so ago, based on note 12 days ago referring to 3-wk history of worsening depression. He was started on low-risk medications (sertraline, buspirone), each of which was identified by family as causing significant cognitive and behavioral changes. He was admitted to [facility] from [facility] 2 days ago and sent from there to the [facility] ED twice yesterday. On approach pt sits on bed slowly eating lunch. He makes very little eye contact. Speech is characterized by increased latency of response, reduced rate, reduced duration, and reduced volume with a pattern of starting off sentences well-articulated for a few words then dwindling into mumbling. He is oriented to person, place, and day, month, year, and yesterday's date (though it takes numerous iterations to establish that given the aforementioned speech pattern). History is in general challenging to obtain due to limited responses. Pt says he's here because of chest pain but doesn't know if any cause has been identified. He says he was at [facility] because he was depressed and suicidal and that he's still depressed but not currently suicidal. He says he "was on Zoloft" but it made him confused and can't think of any other psychiatric m edication he's taken. Past Psychiatric History Previous Psych History: none documented prior to February 2023 Previous Psych Admissions: [facility] 03/28/2023 Allergies Allergy/AdvReac Type Severity Reaction Status Date / Time risperidone Allergy Intermediate Hives Verified 03/29/23 22:35 lactose Allergy Unknown Verified 03/29/23 22:35 sertraline AdvReac Intermediate confusion Verified 03/30/23 01:37 Home Medications Medication Instructions Recorded Confirmed Type buspirone 10 mg tablet 10 mg PO TID 03/29/23 03/29/23 History lorazepam 1 mg tablet 1 mg PO Q8 PRN Anxiety 03/29/23 03/29/23 History metformin 500 mg tablet,extended 500 mg PO [facility] 03/29/23 03/29/23 History release 24 hr pantoprazole 40 mg tablet,delayed 40 mg PO DAILY 03/29/23 03/29/23 History release sertraline 50 mg tablet 50 mg PO QAM 03/29/23 03/29/23 History Patient History Medical History (Updated 03/30/23 @ 18:48 by Raffi Stephenson MD) Anxiety Depression Social History Smoking Status: Current every day smoker Tobacco Type: Cigarettes Hx Alcohol Use: No Hx Substance Use: Yes Substance Use Type Other:: current medical marijuana, former heroin user Preferred Language: Panamanian Communication Ability: Impaired Communication Ability Comment: Garbled speech Communication Tools: Facial Expression, Writing Tablet and Physical Gestures Decorative Engraver Required: Yes Beliefs That Will Affect Care: None Current Living Situation: Other Current Living Situation Comment: in trailer, with roommates Other Information That Helps Us Care for You: No Feels Safe at Home: Yes Safety Concerns: Feels Safe At This Time Assistive Devices: None Physical Exam Psychiatric: Orientation: oriented to person, oriented to place and oriented to time (day, month, year, yesterday's date); + not alert (dull) Eye Contact: + poor eye contact (essentially nil) Motor Behavior: + psychomotor retardation Speech: + abnormal rate/rhythm/volume of speech (increased latency, slow, very brief) Affect: + blunted affect Mood: + depressed mood Thought Process: + concrete thought process Thought Content: reality based without delusions Suicidal Thoughts: denies suicidal thoughts, denies suicidal plan and denies suicidal intent Homicidal Thoughts: denies homicidal thoughts Hallucinations: no auditory hallucinations and no visual hallucinations Cognition: + recent memory not intact (unable to provide much history), + remote memory not intact (unable to provide much detail about his life), + attention not intact (ignores many questions) and + language not intact (articulation difficulty) Estimated Intelligence: consistent with education level Insight: + poor insight Judgment: + poor judgement Vital Signs (Past 24 Hours): Last Vital Signs Temp 36.7 C 03/29/23 20:26 Pulse 71 03/30/23 07:00 Resp 16 03/30/23 04:20 BP 149/87 H 03/30/23 04:20 Pulse Ox 96 03/30/23 04:20 O2 Del Method Room Air 03/30/23 04:20 Review of Systems Psychiatric: + depression, + anxiety, + confusion and + substance abuse (cannabis per recent toxicology screen); no suicidal ideation ROS limited by very abbreviated spoken responses and limited participation in the exam Results & Data (PSY) Medications Administered Enoxaparin Sodium (Enoxaparin Inj 40 Mg/0.4 Ml Syr) 40 mg SQ QAM ADELINA Stop: 04/29/23 08:59 Last Admin: 03/30/23 09:49 Dose: 40 mg Documented By: RAJIV Sodium Chloride (Nss) 1,000 mls @ 50 mls/hr IV .Q20H ONE Stop: 03/30/23 21:31 Last Admin: 03/30/23 01:54 Dose: 50 mls/hr Documented By: WILMA Insulin Aspart (Insulin Aspart Per Unit Charge) 0 units SC ACHS [facility] Stop: 04/29/23 02:28 Last Admin: 03/30/23 08:42 Dose: Not Given Documented By: Admin: 03/30/23 03:15 Dose: Not Given Documented By: MAR Co-signed By: MAR(2) Lisinopril (Lisinopril 2.5 Mg Tab) 2.5 mg PO QAM [facility] Stop: 04/29/23 03:04 Last Admin: 03/30/23 04:42 Dose: 2.5 mg Documented By: MAR(2) Melatonin (Melatonin 3 Mg Tab) 3 mg PO HS PRN PRN Reason: Sleep Stop: 04/29/23 00:20 Last Admin: 03/30/23 02:17 Dose: 3 mg Documented By: WILMA Pantoprazole Sodium (Pantoprazole 40 Mg Tab) 40 mg PO DAILY [facility] Stop: 04/29/23 08:59 Last Admin: 03/30/23 08:50 Dose: 40 mg Documented By: RAJIV Coding Level of Care Code 83374 [facility] Intl Hosp Care Lvl 3 Diagnoses Depression F32.A Anxiety F41.9 Time Spent (min) 97
--- NOTE | 2023-03-30 16:33 | Communication Note ---
Date of Service: March 30, 2023 Patient seen and examined at bedside. He is alert oriented x 3. He is not in any distress. He denies fever, chills, chest pain, shortness of breath or abdominal pain. CBC and BMP reviewed; no acute findings MRI brain and MRA brain did not show any acute findings. CT abdomen/pelvis and CTA chest also does not show any acute findings. On physical examination; Constitutional: Awake, oriented to time and place. Slow to respond to questions Respiratory: Bilateral vesicular breath sound Cardiovascular: RRR, no murmur, no edema Vessels: no JVD or carotid bruit Chest: normal inspection of chest Abdomen: normal bowel sounds, soft, nontender, no hepatosplenomegaly Musculoskeletal: no cyanosis or clubbing, extremities motor strength 5/5 Skin: no rashes, warm and dry normal turgor Neurologic: Grossly intact. Follow commands Psychiatric: Flat affect Patient is medically stable. Awaiting psych input. PT OT ordered Plan to continue current meds. Lisinopril dose increased to 10 mg once a day.
[2023-03-31] MEDS: lisinopril 10 MG TAB PO SCH (08:07)
[2023-03-31] MEDS: hydrOXYzine HCl 10 MG TAB PO PRN (11:27)
[2023-03-31] MEDS ORDERED: NICOTINE POLACRILEX 2 MG GUM MT PRN (11:38)
[2023-03-31] MEDS ORDERED: NICOTINE 21 MG/24 HR TDSY TD SCH (11:45)
[2023-03-31 12:02] LABS: Adenovirus F 40/41 PCR Not Detected (NotDetected); Astrovirus PCR Not Detected (NotDetected); Campylobacter PCR Not Detected (NotDetected); Cryptosporidium PCR Not Detected (NotDetected); Cyclospora cayetanensis PCR Not Detected (NotDetected); Entamoeba histolytica PCR Not Detected (NotDetected); Enteroaggregative E.coli(EAEC) Not Detected (NotDetected); Enteropathogenic E.coli (EPEC) Not Detected (NotDetected); Enterotoxigenic E.coli (ETEC) Not Detected (NotDetected); Giardia lamblia PCR Not Detected (NotDetected); Norovirus GI/GII PCR Not Detected (NotDetected); Plesiomonas shigelloides PCR Not Detected (NotDetected); Rotavirus A PCR Not Detected (NotDetected); Salmonella PCR Not Detected (NotDetected); Sapovirus PCR Not Detected (NotDetected); Shiga-like Toxin E.coli (STEC) Not Detected (NotDetected); Shigella/Enteroinvasive E.coli Not Detected (NotDetected); Vibrio cholerae PCR Not Detected (NotDetected); Vibrio species PCR Not Detected (NotDetected); Yersinia enterocolitica PCR Not Detected (NotDetected)
--- NOTE | 2023-03-31 12:49 | Hospitalist Progress Note ---
Date of Service March 31, 2023 Assessment & Plan (1) Encephalopathy: Plan: Multifactorial: new neuropsychotropic medications (buspirone and sertraline) for mood disorder Uncontrolled hypertension, patient not on maintenance medications Parainfluenza illness Patient was sent from [facility] for chest pain and disorientation. He reported chest pain and abdominal pain on presentation. Diagnosed of parainfluenza on March 28, 2023 High sensitive troponin on admission negative Echocardiogram shows EF of 55 to 60% with no significant valvular heart disease. CT headno acute findings CT abdomen/pelvisno acute findings. CTA chest=no PE Brain MRIno acute findings. Brain MRAno acute findings Patient started on lisinopril for high blood pressure. Will need titration as outpatient. The high blood pressure can be secondary to anxiety as well. Patient was seen by psychiatry; recommend avoid adding any psychiatric medication during this admission. Patient medically stable for transfer back to [facility] to continue treatment. Discussed with psychiatric liaison and case management. DM 2 on oral medications, suboptimal control as of recent hemoglobin A1c of 7.17 September 2022. On hold for now. HCV status post Rx Subclinical hypothyroidism, TSH noted to be 7.5 from recent [facility] ER visit. Will need follow-up TSH in 4 to 6 weeks. Please note the above document was generated using voice recognition software. It may contain grammatical, syntax or spelling errors. Any formal questions or concerns about the content, text or information contained within the body of this dictation should be directly addressed to the provider for clarification Admission and Anticipated Discharge Date Admission Date: March 30, 2023 Subjective Patient seen and examined at bedside. He is alert oriented x 3; not in distress. He denies fever, chills, chest pain, shortness of breath, abdominal pain or urinary symptoms. No other overnight significant events. Review of Systems Review of Systems: All systems reviewed & are unremarkable except as noted in Subjective Physical Exam Physical Exam: Constitutional: Awake, alert oriented x 3; not in distress. Respiratory: Bilateral vesicular breath sound. Cardiovascular: RRR, no murmur, no edema Vessels: no JVD or carotid bruit Chest: normal inspection of chest Abdomen: Soft, nontender. Musculoskeletal: no cyanosis or clubbing, extremities motor strength 5/5 Skin: no rashes, warm and dry normal turgor Neurologic: Grossly intact. Psychiatric: A+Ox3, euthymic affect Results & Data Results & Data Vital Signs (Past 12 Hours) Vital Signs Temp Pulse Resp BP Pulse Ox O2 Del Method O2 Del Method 03/31/23 11:53 37.1 C 106 H 20 162/105 H 98 Room Air 03/31/23 09:22 Nasal Cannula 03/31/23 07:32 36.6 C 86 20 157/99 H 95 Room Air 03/31/23 03:00 Room Air O2 Flow Rate 03/31/23 11:53 03/31/23 09:22 2 03/31/23 07:32 03/31/23 03:00 Laboratory Results Laboratory Results WBC 8.17 K/ul (4.8-10.8) 03/30/23 04:14 RBC 5.19 M/uL (4.70-6.10) 03/30/23 04:14 Hgb 15.1 g/dl (14.0-18.0) 03/30/23 04:14 Hct 46.1 % (42.0-52.0) 03/30/23 04:14 MCV 88.8 fL (80.0-100.0) 03/30/23 04:14 MCH 29.1 pg (25.0-34.0) 03/30/23 04:14 MCHC 32.8 g/dL (32.0-36.0) 03/30/23 04:14 RDW Std Deviation 42.8 fL (36.4-46.3) 03/30/23 04:14 RDW Coeff of Frank 13.1 % (11.5-14.5) 03/30/23 04:14 Plt Count 216 K/uL (130-400) 03/30/23 04:14 MPV 10.5 fL (9.4-12.4) 03/30/23 04:14 Immature Gran % (Auto) 0.2 % 03/30/23 04:14 Neut % (Auto) 65.5 % 03/30/23 04:14 Lymph % (Auto) 21.5 % 03/30/23 04:14 Moore % (Auto) 10.6 % 03/30/23 04:14 Eos % (Auto) 1.8 % 03/30/23 04:14 Baso % (Auto) 0.4 % 03/30/23 04:14 Neut # (Auto) 5.34 K/uL (1.40-6.50) 03/30/23 04:14 Lymph # (Auto) 1.76 K/uL (1.20-3.40) 03/30/23 04:14 Moore # (Auto) 0.87 K/uL (0.11-0.59) H 03/30/23 04:14 Eos # (Auto) 0.15 K/uL (0.00-0.50) 03/30/23 04:14 Baso # (Auto) 0.03 K/uL (0.00-0.20) 03/30/23 04:14 Immature Gran # (Auto) 0.02 K/uL (0.01-0.20) 03/30/23 04:14 Sodium 135 mmol/L (136-145) L 03/30/23 04:14 Potassium 3.8 mmol/L (3.5-5.1) 03/30/23 04:14 Chloride 106 mmol/L (98-107) 03/30/23 04:14 Carbon Dioxide 24 mmol/L (21-32) 03/30/23 04:14 Anion Gap 5 (3-11) 03/30/23 04:14 BUN 17 mg/dl (6-23) 03/30/23 04:14 Creatinine 0.64 mg/dl (0.6-1.4) 03/30/23 04:14 Est Cr Clr Drug Dosing 193.3 ml/min 03/30/23 04:14 Est GFR ( Amer) 133.3 ml/min 03/30/23 04:14 Est GFR (Non-Af Amer) 115.0 ml/min 03/30/23 04:14 BUN/Creatinine Ratio 26.6 (10-20) H 03/30/23 04:14 Glucose 108 mg/dl (70-99(Fasting)) H 03/30/23 04:14 POC Glucose 87 mg/dl (70-99) 03/31/23 12:16 Calcium 8.6 mg/dl (8.6-10.3) 03/30/23 04:14 Magnesium 2.0 mg/dl (1.7-2.4) 03/29/23 23:02 Ammonia 49.0 umol/L (18-72) 03/29/23 23:02 Triglycerides 227 mg/dl (0-150) H 03/29/23 23:02 Cholesterol 133 mg/dl (0-200) 03/29/23 23:02 LDL Cholesterol, Calc 69 mg/dl 03/29/23 23:02 VLDL Cholesterol, Calc 45 mg/dl (0-30) H 03/29/23 23:02 HDL Cholesterol 19 mg/dl 03/29/23 23:02 Cholesterol/HDL Ratio 7.0 (0-5) H 03/29/23 23:02 TSH 1.986 uIu/ml (0.300-4.500) 03/29/23 23:02 Urine Color Yellow 03/30/23 01:58 Urine Appearance Clear (Clear) 03/30/23 01:58 Urine pH 5.5 (4.5-7.5) 03/30/23 01:58 Ur Specific [place] > 1.045 (1.000-1.030) H 03/30/23 01:58 Urine Protein Trace (Negative) H 03/30/23 01:58 Urine Glucose (UA) Negative (Negative) 03/30/23 01:58 Urine Ketones Negative (Negative) 03/30/23 01:58 Urine Blood Negative (Negative) 03/30/23 01:58 Urine Nitrite Negative (Negative) 03/30/23 01:58 Urine Bilirubin Negative (Negative) 03/30/23 01:58 Urine Urobilinogen Negative (Negative) 03/30/23 01:58 Ur Leukocyte Esterase Negative (Negative) 03/30/23 01:58 Urine WBC (Auto) 1-5 /hpf (0-5) 03/30/23 01:58 Urine RBC (Auto) 0-4 /hpf (0-4) 03/30/23 01:58 U Hyaline Cast (Auto) 0 /lpf (0-5) 03/30/23 01:58 U Epithel Cells (Auto) 0-5 /lpf (0-5) 03/30/23 01:58 Urine Bacteria (Auto) Negative (Negative) 03/30/23 01:58 Stl C. cayetanensis PCR Not Detected (NotDetected) 03/31/23 10:20 Stool Rotavirus A PCR Not Detected (NotDetected) 03/31/23 10:20 Stl Adenov F 40/41 PCR Not Detected (NotDetected) 03/31/23 10:20 Stool Astrovirus (PCR) Not Detected (NotDetected) 03/31/23 10:20 Stool Campylobacter PCR Not Detected (NotDetected) 03/31/23 10:20 Stl C. diff Tox B Gene Negative Cdiff Gene (Neg) 03/31/23 10:20 Stool Cryptosporidium PCR Not Detected (NotDetected) 03/31/23 10:20 Stl E.coli Shiga Tox PCR Not Detected (NotDetected) 03/31/23 10:20 Stl Enterotoxigenic E PCR Not Detected (NotDetected) 03/31/23 10:20 Stool EPEC (PCR) Not Detected (NotDetected) 03/31/23 10:20 Stool EAEC (PCR) Not Detected (NotDetected) 03/31/23 10:20 Stl E. histolytica PCR Not Detected (NotDetected) 03/31/23 10:20 Stool Giardia Lamblia PCR Not Detected (NotDetected) 03/31/23 10:20 Stool Salmonella PCR Not Detected (NotDetected) 03/31/23 10:20 Stool Sapovirus (PCR) Not Detected (NotDetected) 03/31/23 10:20 Stl P. shigelloides PCR Not Detected (NotDetected) 03/31/23 10:20 Stl Shigella/EIEC PCR Not Detected (NotDetected) 03/31/23 10:20 St Y.enterocolitica PCR Not Detected (NotDetected) 03/31/23 10:20 Stool Vibrio (PCR) Not Detected (NotDetected) 03/31/23 10:20 Stl Vibrio cholerae PCR Not Detected (NotDetected) 03/31/23 10:20 Stl Norovirus GI/GII PCR Not Detected (NotDetected) 03/31/23 10:20 Urine Opiates Screen Neg (Neg) 03/30/23 01:58 Ur Methadone, Qual Neg (Neg) 03/30/23 01:58 Urine Barbiturates Neg (Neg) 03/30/23 01:58 Ur Phencyclidine (PCP) Neg (Neg) 03/30/23 01:58 U Amphetamin/Meth Scrn Neg (Neg) 03/30/23 01:58 MDMA (Ecstasy) Screen Neg (Neg) 03/30/23 01:58 U Benzodiazepines Scrn Neg (Neg) 03/30/23 01:58 Ur Cocaine Metabolite Neg (Neg) 03/30/23 01:58 U Marijuana (THC) Screen Neg (Neg) 03/30/23 01:[address] 03/29/23 21:23 Exam(s): CT HEAD Without Contrast EXAM: CT Head Without Intravenous Contrast CLINICAL HISTORY: Reason for exam: disorientation. TECHNIQUE: Axial computed tomography images of the head/brain without intravenous contrast. CTDI is 36.38 mGy and DLP is 625.8 mGy-cm. Automated exposure control was utilized for the study. A dose lowering technique was utilized adhering to the principles of ALARA. COMPARISON: No relevant prior studies available. FINDINGS: No acute intracranial hemorrhage. No midline shift or mass effect. The territorial mohan-white matter differentiation is maintained throughout. The ventricles and sulci are commensurate with age. The visualized orbits appear grossly unremarkable. The calvarium is intact. The visualized paranasal sinuses and mastoid air cells are grossly clear. IMPRESSION: No acute intracranial hemorrhage, midline shift, or mass effect. Electronically signed by: William Weir MD 03/29/23 23:25 PM Abdomen/Pelvis CT 03/29/23 22:47 Exam(s): CT ABDOMEN + PELVIS With Contrast IV Amt: 117 ML OPTIRAY 320 EXAM: CT Abdomen and Pelvis With Intravenous Contrast CLINICAL HISTORY: Reason for exam: abd pain. TECHNIQUE: Axial computed tomography images of the abdomen and pelvis with intravenous contrast. CTDI is 28.14 mGy and DLP is 2371.77 mGy-cm. Automated exposure control was utilized for the study. A dose lowering technique was utilized adhering to the principles of ALARA. CONTRAST: Patient received 117 ML OPTIRAY 320 of IV contrast COMPARISON: No relevant prior studies available. FINDINGS: Lung bases: Unremarkable. No mass. No consolidation. ABDOMEN: Liver: Unremarkable. No mass. Gallbladder and bile ducts: Unremarkable. No calcified stones. No ductal dilation. Pancreas: Unremarkable. No mass. No ductal dilation. Spleen: Unremarkable. No splenomegaly. Adrenals: Unremarkable. No mass. Kidneys and ureters: Unremarkable. No solid mass. No hydronephrosis. Stomach and bowel: Diverticulosis, without acute diverticulitis. No bowel obstruction. PELVIS: Appendix: No findings to suggest acute appendicitis. Bladder: Unremarkable. No mass. Reproductive: Unremarkable as visualized. ABDOMEN and PELVIS: Intraperitoneal space: Unremarkable. No free air. No significant fluid collection. Bones/joints: No acute fracture. No dislocation. Bilateral pars defect at L5. Soft tissues: Small fat-containing bilateral inguinal hernias. Vasculature: Unremarkable. No abdominal aortic aneurysm. Lymph nodes: Unremarkable. No enlarged lymph nodes. IMPRESSION: No acute findings. Electronically signed by: William Weir MD 03/30/23 02:30 AM Chest CTA 03/29/23 23:12 Exam(s): CTA CHEST IV Amt: 117 ML OPTIRAY 320 EXAM: CT Angiography Chest With Intravenous Contrast CLINICAL HISTORY: Reason for exam: intermittent cp, tachycardia. TECHNIQUE: Axial computed tomographic angiography images of the chest with intravenous contrast. CTDI is 28.14 mGy and DLP is 2371.77 mGy-cm. Automated exposure control was utilized for the study. A dose lowering technique was utilized adhering to the principles of ALARA. MIP reconstructed images were created and reviewed. COMPARISON: No relevant prior studies available. FINDINGS: Pulmonary arteries: Unremarkable. No pulmonary embolism. Aorta: No acute findings. No thoracic aortic aneurysm. Lungs: Unremarkable. No mass. No consolidation. Pleural space: Unremarkable. No significant effusion. No pneumothorax. Heart: Unremarkable. No cardiomegaly. No significant pericardial effusion. No evidence of RV dysfunction. Bones/joints: No acute fracture. No dislocation. Soft tissues: Unremarkable. Lymph nodes: Unremarkable. No enlarged lymph nodes. Liver: Hepatic steatosis. IMPRESSION: No acute findings in the visualized arteries of the chest. Electronically signed by: William Weir MD 03/30/23 01:56 AM Brain MRI 03/30/23 00:49 Exam(s): MRI HEAD Without Contrast EXAM: MR Head Without Intravenous Contrast CLINICAL HISTORY: Reason for exam: transient aphasia. TECHNIQUE: Magnetic resonance images of the head/brain without intravenous contrast in multiple planes. COMPARISON: Comparison made to prior head CT from March 29, 2023. FINDINGS: Brain: Unremarkable. No mass. No hemorrhage. No acute infarct. The flow voids at the base of the brain intact. Ventricles: Unremarkable. No ventriculomegaly. Bones/joints: Unremarkable. No acute fracture. Sinuses: Chronic ethmoid sinusitis. No acute sinusitis. Mastoid air cells: Unremarkable as visualized. No mastoid effusion. Orbits: Unremarkable as visualized. IMPRESSION: No evidence of acute intracranial pathology. Electronically signed by: Liliya Nieves MD 03/30/23 02:45 AM Head MRA 03/30/23 00:49 Exam(s): MRA HEAD Without Contrast EXAM: MR Angiography Head Without Intravenous Contrast CLINICAL HISTORY: Reason for exam: transient aphasia. TECHNIQUE: Magnetic resonance angiography images of the head without intravenous contrast. COMPARISON: No relevant prior studies available. FINDINGS: Right internal carotid artery: No acute findings. Intracranial segment is patent with no significant stenosis. No aneurysm. Right anterior cerebral artery: Unremarkable. No occlusion or significant stenosis. No aneurysm. Right middle cerebral artery: Unremarkable. No occlusion or significant stenosis. No aneurysm. Right posterior cerebral artery: Unremarkable. No occlusion or significant stenosis. No aneurysm. Right vertebral artery: Unremarkable as visualized. Left internal carotid artery: No acute findings. Intracranial segment is patent with no significant stenosis. No aneurysm. Left anterior cerebral artery: Unremarkable. No occlusion or significant stenosis. No aneurysm. Left middle cerebral artery: Unremarkable. No occlusion or significant stenosis. No aneurysm. Left posterior cerebral artery: Unremarkable. No occlusion or significant stenosis. No aneurysm. Left vertebral artery: Unremarkable as visualized. Basilar artery: Unremarkable. No occlusion or significant stenosis. No aneurysm. IMPRESSION: Negative MRA of the brain. Electronically signed by: Liliya Nieves MD 03/30/23 02:40 AM
--- NOTE | 2023-03-31 15:16 | Discharge Summary ---
Date of Service March 31, 2023 Admission HPI Per Admitting Provider History obtained from patient, family, and records. Medical history significant for hypertension, hyperlipidemia, [place], DM 2 on oral medications, HCV status post Rx, mood disorder, past history of substance abuse, ongoing tobacco abuse. 03/18 Patient seen at PCPs office for worsening depression in the last 3 weeks. Feeling anxious all the time. Patient denies suicidality. Intermittent chest pain and abdominal complaints separate from each other. Watery diarrhea. No fever, no chills. Patient started on sertraline by outpatient provider. 03/19-03/20 Overnight observation at [facility] ER for anxiety/panic attack. TSH noted to be elevated at 7.5. Patient prescribed as needed Ativan prescription. PCP later added BuSpar 3 times daily to regimen after patient requested for additional Ativan prescription. Increased agitation/trouble focusing with new medications as per patient family. Patient's sister attributes problem to sertraline. Patient not being able to get words out. Sertraline discontinued by patient/family. 03/28 Patient directed to [facility] ER by PCP's office for manic behavior, increased agitation/anxiety, not being able to communicate since ER visit a week ago. Cannabis noted on urine drug screen. Parainfluenza noted on viral screen. Patient transferred to the local [facility] psychiatric facility. Patient sent to the [facility] ER for evaluation yesterday from the [facility] for chest pain and disorientation complaints. Patient subsequently discharged back to facility. Increased disorientation noted at psychiatric facility. Patient complaining of worsening abdominal pain. SBP 160s, heart rate 110s. Patient brought back to ER for evaluation. Mentation somewhat improved after IV fluids administered at the ER as per sister. Medical History as above Surgical History : Liver biopsy Family History : Cirrhosis, heart disease Personal/Social history : 1 pack daily, occasional EtOH intake, disabled Admission Exam Per Admitting Provider GENERAL: Morbidly obese, anxious, older than stated age, oriented but speech somewhat slow, no respiratory distress SKIN: Normal color, warm HEENT: [place] palpebral conjunctivae, no ptosis, dry buccal mucosa NECK : Supple, short neck, no tenderness CHEST : Decreased breath sounds, no tenderness HEART : RRR, no obvious murmurs ABDOMEN: Some distention, nontender EXTREMITIES : Minimal LE swelling/tenderness, no other conspicuous deformities noted NEUROLOGIC : Coherent, no facial asymmetry, speech somewhat slow and stuttering, gait and stance not assessed Principal Diagnosis Altered mental status Uncontrolled hypertension Discharge Exam Constitutional: Awake, alert oriented x 3; not in distress. Respiratory: Bilateral vesicular breath sound. Cardiovascular: RRR, no murmur, no edema Vessels: no JVD or carotid bruit Chest: normal inspection of chest Abdomen: Soft, nontender. Musculoskeletal: no cyanosis or clubbing, extremities motor strength 5/5 Skin: no rashes, warm and dry normal turgor Neurologic: Grossly intact. Psychiatric: A+Ox3, euthymic affect Discharge Data Allergies Allergy/AdvReac Type Severity Reaction Status Date / Time risperidone Allergy Intermediate Hives Verified 03/29/23 22:35 lactose Allergy Unknown Verified 03/29/23 22:35 sertraline AdvReac Intermediate confusion Verified 03/30/23 01:37 Consultations 03/29/23 22:24 ED Decision to Admit Stat 03/30/23 02:29 Consult Psychiatry Routine Ordered Studies 03/29/23 21:23 CT head/brain wo con Stat 03/29/23 22:47 CT Abd and Pelvis [CT abd pelvis IV con only] Stat 03/29/23 23:12 CT angio chest PE protocol Stat 03/30/23 00:49 MR angio head wo con Stat MRI Brain [MR brain wo con] Stat Hospital Course (1) Encephalopathy: Multifactorial: new neuropsychotropic medications (sertraline) for mood disorder Uncontrolled hypertension, patient not on maintenance medications Parainfluenza illness Patient was sent from [facility] for chest pain and disorientation. He reported chest pain and abdominal pain on presentation. Diagnosed of parainfluenza on March 28, 2023 High sensitive troponin on admission negative Echocardiogram shows EF of 55 to 60% with no significant valvular heart disease. CT headno acute findings CT abdomen/pelvisno acute findings. CTA chest=no PE Brain MRIno acute findings. Brain MRAno acute findings Patient started on lisinopril for high blood pressure. Will need titration as outpatient. The high blood pressure can be secondary to anxiety as well. Patient was seen by psychiatry; recommend avoid adding any psychiatric medication during this admission. Discussion was done with patient and patient's sister regarding discharge. Patient does not want to go back to [facility]. This was discussed with behavioral health liaison. As per the behavioral health liaison; patient can be discharged back home. No medication adjustment was recommended. Patient was back to his baseline mentation at discharge. Discharge instruction provided to the patient's sister over the phone. Patient to stay with her and his mother after discharge. Please note the above document was generated using voice recognition software. It may contain grammatical, syntax or spelling errors. Any formal questions or concerns about the content, text or information contained within the body of this dictation should be directly addressed to the provider for clarification Total Time Total Time Spent Total Time Spent (In Minutes): 35 Total Time Includes: Examination of the Patient, Discharge Planning, Medication Reconciliation, Communication With Other Providers and Other Discharge Plan Discharge Items Patient Disposition: Home - Self-Care Reason For Visit: AMS Discharge Diagnosis: Altered mental status likely secondary to new psychiatric medication Hypertension Activity: Resume your previous activity Non-emergency contact: Primary Care Provider Call non-emergency contact if: you have any medication questions and your symptoms worsen Follow-up/Referrals: Venecia Cabrera PA-C [Outside Practitioners] - PCP,NO [Primary Care Provider] - Diet: Regular Addtl Attending Provider Instructions: You were admitted to the hospital due to altered mental status. The likely cause for it is sertraline. Medication is stopped at discharge. An appointment will be set up with your primary care doctor sometime next week. Please follow- up with your doctor and obtain psychiatry referral. You are also found to have high blood pressure for which you are prescribed lisinopril 10 mg once a day. Please measure your blood pressure at home. The dose of the medication needs to be adjusted based on your blood pressure reading. Please discuss this with with your primary care doctor. Your TSH was found to be slightly on the higher side. It is recommended that you repeat thyroid function test in 6 weeks. Pending Studies at Discharge: No Stand-Alone Forms: My Mophie, Smoking Cessation Medications and DC Order Prescriptions: New lisinopril 10 mg Tablet 10 mg PO QAM 30 Days Qty: 30 0RF Continued pantoprazole 40 mg tablet,delayed release (DR/EC) 40 mg PO DAILY buspirone 10 mg tablet 10 mg PO TID Rx Instructions: take in morning,noon and before beetime metformin 500 mg tablet extended release 24 hr 500 mg PO [facility] lorazepam 1 mg tablet 1 mg PO Q8 PRN (Reason: Anxiety) 5 Days Qty: 15 0RF Discontinued sertraline 50 mg tablet 50 mg PO QAM Discharge Orders: Discharge Order (Routine); Ordered 03/31/23 Ordered By: Blas Hernandez Admission Data Admit Date/Time: 03/30/23 01:01 Attending Provider: Blas Hernandez Admit Provider: Tae Plasencia Primary Care Provider: PCP,NO Other Providers: Tae Plasencia; Ragini Aragon; Fani Nolan; Alverto Mccullough; Raffi Stephenson
[2023-03-31] MEDS: ALPRAZolam 0.5 MG TABLET PO PRN (15:46)
--- OUTSIDE RECORDS SUMMARY | 2023-04-01 02:00 | External Medical Summary | Summary of Care ---
Author Name Unknown Organization [facility] Address [address] [place] [address] Phone [phone] Care Team Providers Care General Cargo Clerk Name Role Phone Venecia Cabrera PA-C Primary Care Provider Reason for Visit * Reason Comments Evaluation Psychiatric * Auth/Cert Specialty Diagnoses / Procedures Referred By Contac t Referred To Contact Diagnoses Aphasic, Referral ID Status Reason Start Date Expiration Date Visits Re quested Visits Authorized [id number] Encounter Details Date Type Department Care Team (Late st Contact Info) Description 03/28/2023 3:42 PM EST - 03/29/2023 9:30 AM EST Emergency [facility] Emergency Department (SH) [address] [place] [address] Betty Gee, DO [address] [place] [address] Anxiety Discharge Disposition: Psychiatric Hospital Allergies Active Allergy Reactions Criticality Noted Date Comments Lactose 01/11/2007 Risperidone Medium 05/25/2018 Other reaction(s): Hives / Urticaria, weak in legs documented as of this encounter (statuses as of 03/29/2023) Medications Medication Sig Dispensed Refills Start Date End Date Status metFORMIN HCl ER 500 MG Oral Tablet Extended Release 24 Hour (Glucophage XR) Take 1 Tablet by mouth in the morning and 1 Tablet before bedtime. 180 Tablet 3 03/14/2023 Active Pantoprazole Sodium 40 MG Oral Tablet Delayed Release (Protonix) Take 1 Tablet by mouth in the morning. 0 03/17/2023 Active Sertraline HCl 50 MG Oral Tablet (Zoloft)Indicati ons:Current moderate episode of major depressive disorder, unspecified [...] before bedtime. 90 Tablet 0 2023 Active Cyclobenzaprine HCl 5 MG Oral Tablet (Flexeril)Indica tions:Acute left-sided low back pain with left-sided sciatica 1-2 tabs 3 times a day for back pain 45 Tablet 0 05/07/2022 3 Discontinued(Medi cation List Clean Up) OneTouch Verio In Vitro Strip (Glucose Blood) Use up to 4 times a day E11.9 100 Strip 11 03/14/2023 3 Discontinued documented as of this encounter (statuses as of 03/29/2023) Active Problems Problem Noted Date Diagnosed Date Synovial cyst of right knee 03/28/2023 Severe episode of recurrent major depressive disorder, with psychotic features 03/28/2023 Body mass index (BMI) of 45.0 to [...] as of this encounter (statuses as of 03/29/2023) Immunizations Name Administration Dates Next Due Hepatitis B Vaccine, Recombi nant, Adjuvanted, 20 mcg/mL (Heplisav-B) 08/25/2022,06/16/2022 Hepatitis B, 20+ yrs 06/16/2022 documented as of this encounter Social History Tobacco Use Types Packs/Day Years Used Date Smoking Tobacco: Every Day Cigarettes 1 Passive Smoke Exposure: Current Smokeless Tobacco: Former [...] Sign Reading Time Taken Comments Blood Pressure 143/89 03/29/2023 9:15 AM EST Pulse 90 03/29/2023 9:15 AM EST Temperature 36.7 C (98.1 F) 03/29/2023 9:15 AM ES T Respiratory Rate 18 03/29/2023 9:15 AM EST Oxygen Saturation 96% 03/29/2023 9:15 AM EST Inhaled Oxygen Concentration - - Weight 134.7 kg (297 lb) 03/28/2023 3:33 PM EST Height - - Body Mass Index 43.84 03/28/2023 1:33 PM EST documented in this encounter Consult Notes * Jared Lara CRNP - 03/28/2023 6:30 PM EST INITIAL PSYCHIATRY CONSULT NOTE Patient location: ED. I was not in a hospital or clinic location. After connecting through televideo, patient was identified by name and date of and/or wristband checked. Patient (or authorizedlegal field marketing representative) was then informed that this was a Telemedicine visit and being conducted confidentially over secure lines. My office door was closed. No one else was in the room with me. Patient acknowledged consent and understanding of privacy and security of the Telemedicine visit, and gavepermission to have a telemedicine presenter stay in the room in order to assist with the history and to conduct the exam as needed. I informed the patient that I have reviewed their record in [employer] and presented the opportunity for them to ask any questions regarding the visit today. The patient agreed to participate. I communicated with the patient for 20 minutes via televideo. Date of Consult: 03/28/2023 Subjective HISTORY OF PRESENT ILLNESS (HPI): The reason for psychiatric consultation is extreme anxiety. Patient reports having extreme anxiety that is debilitating to him. He struggles to make clear what he actually anxious about. He was seen 03/20/23 for a similar complaint and released. He does report a previous psych hx but is vague aboutit. He was admitted 20 years ago after an overdose but he is unable to explain more. He is currently not working and is on disability. He endorses numerous sxs of depression and anxiety (see below). He does state he has thoughts of suicide at this time but no plan to harm himself. He denies HI as well has hallucinations but he does seem internally preoccupied. He struggles to articulate his experi ence but he is clearly impaired by his sxs. Mother was at the bedside and reported he could not even put on his shoes today. He seemed to struggle with the process. He was oriented person and place but did not know the date. He also could not identify the president. He is asking to be admitted. ED work up included head CT with no significant findings. He is positive for influenza. PSYCHIATRIC REVIEW OF SYSTEMS: Depression: -depressed (sad) mood , -decreased appetite or weight loss when not dieting, -psychomotor agitation , -decreased concentration, and -thoughts of and/or suicide and Anxiety/OCD/PTSD: uncontrollable worry, restlessness, and difficulty concentrating. Psychosis: seems internally preoccupied and struggles to articulate his experience. PAST PSYCHIATRIC HISTORY History of inpatient psychiatric admissions: Was admitted 20 years ago. Does not remember details Current psychiatric medications: Sertraline, buspar and lorazepam from [facility] History of SI: 20 years ago took an OD History of trauma, abuse, exploitation or trafficking: none I have reviewed the patient's allergies, past history, and medications. MENTAL STATUS EXAM (MSE) Appearance: overweight Attitude: cooperative Eye Contact: good Behavior: appropriate Impulse Control: good Speech: normal pitch, normal rate, and normal volume when he does speak but he struggles to answer questions meaningfully. Mood: anxious and depressed Affect: constricted Thought Process: concrete Thought Content: frightened Suicidality and Homicidality: Ideation without Plan Insight: limited Judgment: limited Memory: poor Did not know date or who the president was Attention/Concentration: fair Orientation: alert and oriented to person, place, and situation but not date. Language: clear, coherent, and fluent Fund of Knowledge: poor did not know who the president was Objective PHYSICAL EXAM & ADDITIONAL FINDINGS Please see most recent physical exam by attending physician. Reviewed ED vital signs and pertinent labs, imaging and other studies through Results Review Pain Screening: Is patient experiencing any pain? No Recommendations for management: None Nutritional Screening: No concerns RISK ASSESSMENT- Risk assessment is a dynamic process; it is possible that this patient's condition, and risk level,may change. This should be re-evaluated and managed over time as appropriate. Please call or re-consult us if additional assistance is needed in terms of risk assessment and management. If your team decides to discharge this patient, please advise the patient how to best access emergency psychiatric services, or to call 911, if their condition worsens or they feel unsafe in any way. Based on my current evaluation and risk assessment, patient is determined to be at: High Risk of harm to self or others Risk Factors: previous suicide attempts, history of depression, anxiety, and hopelessness Protective Factors: access to appropriate services, social support, family, and identifies reasons for living GENERAL FORMULATION- Based on my current evaluation and assessment of the patient, Wilman Maynard is a 48 year old years old who presents with complaints of severe anxiety. This is his second visit in less than 2 weeks fora similar complaint. The patient is clearly anxious. He seems internally preoccupied. He endorses numerous sxs of depression and anxiety--see above. He does report SI but has no active plan. He denies HI as well as hallucinations He struggles to articulate what he is experiencing. His insight and judgment are impaired by his sxs and he is struggling to function. Mother reports that simple tasks like putting on shoes overwhelm him and he struggles to do them. He was oriented to person and place b ut did not know time. He also does not know who the president is. He is seeking inpatient care. He would benefit from an admission as he is struggling to care for himself and meet his own basic needsin his current state.The patient's presentation and diagnosis is consistent with major depressive disorder with possible psychotic features.. Assessment & Plan DIAGNOSES: Primary Psychiatric Diagnoses: Major Depressive Disorder Recurrent Episode Severe Specified as w/ Psychotic Behavior PLAN/RECOMMENDATIONS/INTERVENTIONS: Inpatient psych admission is recommended: 201 signed by Patient Medication recommendations: Continue buspar 10 tid for anxiety, Sertraline 50 mg po q d for depression and anxiety and lorazepam 1 mg po q 8 h prn anxiety. Non-Medication recommendations: Refer to psychiatrist at discharge. I reviewed and updated the [place] Suicide Screen and Suicide Safety Plan as clinically indicated Follow-Up Telepsychiatry C/L services: We will continue to follow this patient with you. Total time spent in encounter: 45 minutes total, including record review, clinical interview, behavior observations, discussion of impressions and recommendations, consultation/communication with relevant parties, and clinical documentation Impressions and recommendations were shared with the appropriate persons, including the patient to the extent that the patient is able to consent to treatment as well as understand and participate intreatment decision-making. Consultation recommendations were discussed with requesting physician/service. Thank you for involving us in the care of this patient. Please contact us with questions/concerns. LILIANE Ceballos documented in this encounter Nursing Notes * Neena Barajas LPN - 03/28/2023 4:02 PM EST Pt. Changed into hospital attire, belongings placed in secure locker #3. Pt. Now resting in bed with 1:[address]. Mother is at bedside as well. documented in this encounter ED Notes * Alverto Ortiz DO - 03/29/2023 7:07 AM EST Emergency Medicine Note [facility] [address] [facility] [id number] Name: Wilman Maynard Date and Time Patient was Seen: 03/28/23 1602 ED Addendum: Patient received in sign-out from Dr. Mustafa. The case and plan were discussed in detail. The patient with recent worsening anxiety in 201 was sign. Patient accepted to the [facility] by Dr. Maricel Ibarra. Awaiting transfer. Patient accepted and subsequently transferred. Patient remained stable while under my care. ED Course as of 03/29/23 1234 Mon Mar 28, 2023 1753 Psych will see the patient at 18:30 [LH] 1905 Dr. Gee signed out to me. 201 to be completed. 48 year old male with debilitating anxiety,unable to complete ADLs. Psych evaluated, recommending 201. No med recs at this time. [CS] 191 I completed med rec [CS] 191 Patient signed 201, expressed understanding of 72 hour hold. [CS] 7 Patient accepted to the [facility] in in [place], [place] by Dr. Maricel Houston. [CS] naresh Mar 29, 2023 0921 Transportation present for transfer to the [facility]. [DM] ED Course User Index [CS] Suma Mcdaniel MD [DM] Alverto Ortiz DO [LH] Betty Gee DO DIAGNOSIS: Anxiety DISPOSITION: Transferred to [facility] under the care of Dr. Maricel Ibarra * Betty Gee DO - 03/28/2023 5:57 PM EST HISTORY OF PRESENT ILLNESS Wilman Maynard is a 48 year old male who presents to the ED for evaluation of Evaluation Psychiatric.The patient was seen at 03/28/23 1602. Patient is here for psychiatric evaluation. Patient was being seen by his family doctor when they felt that he needed further evaluation in the emergency department for a possible 201. Patient has severe anxiety. Patient is unable to do the simplest tasks without direction from his sister his mother. Patient is unable to adequately describe what is going on and seems very in his head. Patient denies suicidal or homicidal ideation. Review of Systems Constitutional: Negative for activity change, chills and fever. HENT: Negative for ear pain and sore throat. Eyes: Negative for pain and redness. Respiratory: Negative for cough, shortness of breath and wheezing. Cardiovascular: Negative for chest pain and leg swelling. Gastrointestinal: Negative for abdominal pain, nausea and vomiting. Genitourinary: Negative for dysuria and hematuria. Musculoskeletal: Negative for back pain and neck pain. Skin: Negative for rash and wound. Neurological: Negative for syncope and headaches. Psychiatric/Behavioral: Negative for self-injury and suicidal ideas. The patient is nervous/anxious. The patient's allergies, past history, and medications were reviewed. PHYSICAL EXAM Initial Vitals (see all): BP 161/101 | Pulse 119 | Resp 20 | Temp 98.6 | O2 98 %, Room Air, None | Weight 134.72 kg | Height 175.3 cm | BMI 43.84 kg/m2 Initial Pain Assessment (see all): 2 (mild pain)/10, location: "everywhere" ([facility] Adult Scale 0-10) Physical Exam Vitals and nursing note reviewed. Constitutional: Appearance: Normal appearance. HENT: Head: Normocephalic and atraumatic. Nose: Nose normal. Mouth/Throat: Mouth: Mucous membranes are moist. Eyes: Extraocular Movements: Extraocular movements intact. Cardiovascular: Rate and Rhythm: Normal rate and regular rhythm. Pulses: Normal pulses. Heart sounds: Normal heart sounds. No murmur heard. Pulmonary: Effort: Pulmonary effort is normal. Breath sounds: Normal breath sounds. No wheezing or rhonchi. Abdominal: General: Abdomen is flat. Bowel sounds are normal. Palpations: Abdomen is soft. Tenderness: There is no abdominal tenderness. There is no guarding or rebound. Musculoskeletal: General: Normal range of motion. Cervical back: Normal range of motion and neck supple. Skin: General: Skin is warm and dry. Neurological: General: No focal deficit present. Mental Status: He is alert and oriented to person, place, and time. Psychiatric: Attention and Perception: He is inattentive. Mood and Affect: Mood is anxious. Speech: Speech is rapid and pressured. Behavior: Behavior normal. Thought Content: Thought content does not include homicidal or suicidal ideation. Thought content does not include homicidal or suicidal plan. PROCEDURES AND TREATMENTS ED Orders | ED Results MEDICAL DECISION MAKING Nursing notes and vital signs were reviewed. ED consults were placed. ED Course as of 03/29/23 0922 Mon Mar 28, 2023 1753 Psych will see the patient at 18:30 [LH] 1905 Dr. Gee signed out to me. 201 to be completed. 48 year old male with debilitating anxiety,unable to complete ADLs. Psych evaluated, recommending 201. No med recs at this time. [CS] 191 I completed med rec [CS] 1915 Patient signed 201, expressed understanding of 72 hour hold. [CS] 2356 Patient accepted to the [facility] in in [place], [place] by Dr. Maricel Houston. [CS] [facility] Mar 29, 2023 0921 Transportation present for transfer to the [facility]. [DM] ED Course User Index [CS] Suma Mcdaniel MD [DM] Alverto Ortiz DO [LH] Betty Gee DO Patient was seen and examined. Basic laboratory work was obtained on the patient. No significant findings to suggest that there was an organic process going on. The patient was positive for parainfluenza however I do not think that this has contributing to his acute behavioral health. I called and spoke with psychiatry who did see the patient. They did agree that the patient needed a 201 and would be appropriate for admission. They did feel that his depression and anxiety was causing him to notbe able to care for himself. The patient was willing to sign a 201. Patient was signed out to Dr. Bon Mcdaniel at change of shift. Amount and/or Complexity of Data Reviewed Labs: ordered. Radiology: ordered. ECG/medicine tests: ordered. Risk Prescription drug management. Clinical Impressions Anxiety Disposition No disposition documented. Betty Gee documented in this encounter Miscellaneous Notes * Communication - Rosalio Mohamud BSN - 03/29/2023 9:30 AM EST Hand-Off - Nurse Communication Note Name: Wilman Maynard Location: Date: 03/29/2023 Time: 9:31 AM Nurse giving report: MANUEL Pride Nurse receiving report: Salena Reason for SBAR handoff: Transfer Immediate Concerns: N/a SITUATION: Admission date: 03/28/2023 Chief Complaint: Evaluation Psychiatric Admitting diagnosis: Patient Service: Emergency Medicine [[id number]] Level of Care: Attending Provider: Betty Gee DO Coming From:home BACKGROUND: Primary Care Physician: Venecia Cabrera PA-C Past Medical History: Diagnosis Date Diabetes (HCC) Mixed hyperlipidemia 05/27/2022 Patient Compliant: Yes Code Status: No code status on file Allergies: Risperidone and Lactose Problem list: Active Problems: Severe episode of recurrent major depressive disorder, with psychotic features (HCC) Resolved Problems: * No resolved hospital problems. * Activity: ambulatory Fall Risk or Safety Concerns: None Isolation: None Isolation flowsheet: ASSESSMENT: Vital Signs: BP: 143/89 (03/29/23 0915) Temp: 36.7 C (98.1 F) (03/29/23 0915) Pulse: 90 (03/29/23 0915) Resp: 18 (03/29/23 0915) SpO2: 96 % (03/29/23 0915) Glucose (Bedside): 116 (03/29/23 0800) Weight: 134.7 kg (297 lb) (03/28/23 1533) Pain Assessment Flowsheet Row Most Recent Value [facility]-10 Pain Score 2 (mild pain) Fall Scale: Fall Score: 30 (03/28/23 1551) Neurological: [place] Coma Scale Eyes Open: Spontaneous (03/29/23 0014) Best Verbal Response: Verbally appropriate for age (03/29/23 0014) Best Motor Response: Obeys commands appropriate for age (03/29/23 0014) Coma Score: 15 (03/29/23 0014) Additional Neurological Information: n/a Respiratory: Additional Respiratory Information: n/a Cardiac: Additional Cardiac Information: n/a GI/: Additional GI/ Information: n/a Integumentary: Additional Integumentary Information: n/a Restraints: No orders of the defined types were placed in this encounter. Medications: Am meds given insulin held due to bsg Lines: Treatment: N/a Labs: Labs This Encounter COMPREHENSIVE METABOLIC PANEL - Abnormal; Notable for the following components: Result Value Ref Range Sodium 134 135 - 146 mmol/L All other components within normal limits TOXICOLOGY URINE SCREEN CUP W/ CONFIRMATION ([facility] AND [facility] ONLY) - Abnormal; Notable for the following components: Benzodiazepines Screen, U Positive Negative Cannabinoids Screen, U Positive Negative All other components within normal limits Narrative: Cutoff Concentrations: Drug Level Amphetamines 500 ng/mL Barbiturates 300 ng/mL Benzodiazepines 300 ng/mL Cannabinoids 50 ng/mL Cocaine Metabolite 300 ng/mL Morphine / Codeine 300 ng/mL Methadone 300 ng/mL Oxycodone 100 ng/mL Screening results are presumptive and can only be used for medical purposes. Positive screening results are reflexed to confirmatory testing. RESPIRATORY PATHOGEN PANEL, PCR - Abnormal; Notable for the following components: Parainfluenza Virus 4 by PCR Positive Negative All other components within normal limits CBC - Abnormal; Notable for the following components: WBC 12.02 4.00 - 10.80 K/uL HCT 50.4 40.0 - 48.4 % All other components within normal limits DIFFERENTIAL, AUTOMATED - Abnormal; Notable for the following components: WBC 12.02 4.00 - 10.80 K/uL Neutrophils % 76.4 40.0 - 75.0 % Lymphocytes % 13.1 18.0 - 42.0 % Absolute Neutrophils 9.19 1.80 - 7.70 K/uL All other components within normal limits URINALYSIS, REFLEX TO MICROSCOPIC - Abnormal; Notable for the following components: Bilirubin, Urine Small Negative Ketone, Urine 40 Negative mg/dL Specific Shock, Urine 1.032 1.003 - 1.030 Blood, Urine Trace Negative Protein, Urine Trace Negative mg/dL All other components within normal limits MICROSCOPIC EXAM, URINE - Abnormal; Notable for the following components: RBC, Urine 3-5 0 - 2 /HPF Bacteria, Urine 26-50 0 - 25 /HPF Mucus, Urine Many None /HPF Sperm, Urine Present None /HPF All other components within normal limits ETHANOL, MEDICAL - Normal TROPONIN T, HIGH SENSITIVITY - Normal GLUCOSE METER, POINT OF CARE - Normal GLUCOSE METER, POINT OF CARE - Normal CBC WITH WBC DIFFERENTIAL Narrative: The following orders were created for panel order CBC WITH WBC DIFFERENTIAL. Procedure Abnormality Status --------- ------ CBC[[id number]] Abnormal Final result DIFFERENTIAL, AUTOMATED[[id number]] Abnormal Final result Please view results for these tests on the individual orders. EXTRA TUBES Narrative: The following orders were created for panel order EXTRA TUBES. Procedure Abnormality Status --------- ------ EXTRA URINE DUFF TOP[[id number]] Final result Please view results for these tests on the individual orders. EXTRA URINE DUFF TOP BENZODIAZEPINES, URINE CONFIRMATION THC METABOLITE, URINE CONFIRMATION GLUCOSE METER, POINT OF CARE (COMMUNICATION ORDER) GLUCOSE METER, POINT OF CARE (COMMUNICATION ORDER) GLUCOSE METER, POINT OF CARE (COMMUNICATION ORDER) GLUCOSE METER, POINT OF CARE (COMMUNICATION ORDER) GLUCOSE METER, POINT OF CARE (COMMUNICATION ORDER) GLUCOSE METER, POINT OF CARE (COMMUNICATION ORDER) GLUCOSE METER, POINT OF CARE (COMMUNICATION ORDER) GLUCOSE METER, POINT OF CARE (COMMUNICATION ORDER) GLUCOSE METER, POINT OF CARE (COMMUNICATION ORDER) Diet: Orders Placed This Encounter Procedures Regular Diet Additional Diet Information: 100% breakfast Intake and Output: No intake or output data in the 24 hours ending 03/29/23 0931 Patient Belongings and Home Medications Patient Belongings at Bedside Belongings at Bedside: None (03/28/23 155) Patient Belongings Sent Home (Does not apply to Ambulatory areas) Belongings Sent Home: None (03/28/23 1551) Patient Belongings Sent to Safe/Locker Belongings Sent to Safe: None (03/28/23 155) Patient Medications Medications Brought by Patient?: No (03/28/23 155) RECOMMENDATIONS: Consults not completed: n/a Anticipated tests/studies/procedures: n/a Medication Reconcilliation completed for this Transfer? Yes * ED Senior Software Qa Engineer Note - Chelsy Jason TECH - 03/29/2023 7:47 AM EST BSG finger stick from 2nd finger on right hand. Site prepped with alcohol swab and rubbing vigorously for 15 seconds. Initial drop of blood wiped away with 2x2, then sample applied to glucometer strip. Result of 116, notified RN and provider. Site dressed with band-aid. Procedure confirmed for correct Patient with two (2) Patient identifiers. * ED Senior Software Qa Engineer Note - Chelsy Jason TECH - 03/29/2023 7:46 AM EST Pt breakfast tray delivered * ED Senior Software Qa Engineer Note - Nydia Garcia, RN - 03/29/2023 12:15 AM EST Patient and family updated regarding POC. Patient requesting something to help him sleep. MD made aware * ED Senior Software Qa Engineer Note - Nydia Garcia RN - 03/29/2023 12:05 AM EST Received a call from Joel at [facility]. The patient has been accepted to their facility by Dr.Lesley Houston but cannot arrive until after 10:30 am. * ED Senior Software Qa Engineer Note - Nydia Garcia RN - 03/28/2023 11:43 PM EST [facility] - Spoke with Joel. Faxed [facility] - Spoke with Mei. Will fill out their packet and fax [place] - No answer [place] - Spoke with Alecia. Faxed [facility] - Spoke with Amalia. Faxed but they say it will be a while before anyone can review it [facility] - Faxed [facility] -Spoke with Jose. Faxed * ED Senior Software Qa Engineer Note - Nydia Garcia, RN - 03/28/2023 11:15 PM EST Spoke with Joel at [facility]. He sts that they will look at patient's paperwork. Paperwork faxed at this time * Progress Notes - Non-Billable - Suma Mcdaniel MD - 03/28/2023 7:18 PM EST Wilman [place] was signed out to Suma Mcdaniel MD from Dr Gee at 7:00 PM. Vital Signs | ED Orders | ED Results Situation & Background: Dr. Gee signed out to nm. 201 to be completed. 48 year old male with debilitating anxiety, unable to complete ADLs. Psych evaluated, recommending 201. No med recs at this time. Pending Tests/Imagin Assessment: Anxiety, psychiatric evaluation Recommendations: Placement, transfer Potential Issues: Bed availability ED Course as of 03/29/23 0922 Mon Mar 28, 2023 1753 Psych will see the patient at 18:30 [LH] 1905 Dr. Gee signed out to nm. 201 to be completed. 48 year old male with debilitating anxiety,unable to complete ADLs. Psych evaluated, recommending 201. No med recs at this time. [CS] 1911 I completed med rec [CS] 191 Patient signed 201, expressed understanding of 72 hour hold. [CS] 2357 Patient accepted to the [facility] in in [place], [place] by Dr. Maricel Houston. [CS] Mar 29, 2023 0921 Transportation present for transfer to the [facility]. [DM] ED Course User Index [CS] Suma Mcdaniel MD [DM] Alverto Ortiz DO [LH] Betty Gee DO Clinical Impressions Anxiety Disposition Signed out to Dr. Ortiz at 7:00 a.m. with disposition pending bed search Suma Mcdaniel MD * ED Senior Software Qa Engineer Note - Kay Hu RN - 03/28/2023 6:37 PM EST [facility] telehealth at bedside. * ED Senior Software Qa Engineer Note - Winter De Anda RN - 03/28/2023 3:48 PM EST Patient states that he cannot get his thoughts together and that he is not functioning with daily life well. This has been going on for two weeks. He states that he also wants to harm himself, but does not have a plan. documented in this encounter Plan of Treatment Upcoming Encounters Date Type Department Care Team (Late st Contact Info) Description 04/12/2023 6:50 AM EST Scheduled Telephone Hepatology, [facility] [address] [place] [address] [facility] Pharmacist Hepatology [address] [place] [address] 04/13/2023 10:40 AM EST Office Visit [facility] [address] [place] [address] Venecia Cabrera PA-C [address] [place] [address] Pending Results Name Type Priority Associated Diagnoses Date /Time BENZODIAZEPINES, URINE CONFIRMATION Lab STAT 03/28/2023 4:57 PM EST THC METABOLITE, URINE CONFIRMATION Lab STAT 03/28/2023 4:57 PM EST Scheduled Orders Name Type Priority Associated Diagnoses Orde r Schedule EKG EKG STAT Anxiety Perform Now for 1 Occurrences starting 03/28/2023 until 03/28/2023 BENZODIAZEPINES, URINE CONFIRMATION Lab STAT One Time for 1 Occurrences starting 03/28/2023 until 03/28/2023 THC METABOLITE, URINE CONFIRMATION Lab STAT One Time for 1 Occurrences starting 03/28/2023 until 03/28/2023 Health Maintenance Due Date Last Done Comments DISCUSS TOBACCO CESSATION (REFER TO SMARTSET #2328) 1974 COVID-19 Vaccine (#1) 1975 Pneumococcal Vaccine: [...] 09/20/2022, 05/27/2022 Albumin/Creatinine Ratio 05/27/2023 05/27/2022 GFR 03/28/2024 03/28/2023, 03/11, 07/12/2022, Additional history exists Lipid Panel 05/27/2027 05/27/2022 Hepatitis B Completed 08/25/2022, 11/2022, 06/16/2022 GARDASIL-HPV IMMUNIZATION SERIES Aged Out No longer eligible based on patient's age to complete this topic MENINGOCOCCAL (MENACTRA/MENVEO) Aged Out No longer eligible based on patient's age to complete this topic documented as of this encounter Medical Devices Not on filedocumented as of this encounter Procedures Procedure Name Priority Date/Time Associated Diagnosis Comments GLUCOSE METER, POINT OF CARE [facility] 03/29/2023 7:46 AM EST GLUCOSE METER, POINT OF CARE [facility] 03/29/2023 12:29 AM EST TOXICOLOGY URINE SCREEN CUP W/ CONFIRMATION ([facility] AND [facility] ONLY) STAT 03/28/2023 4:57 PM EST MICROSCOPIC EXAM, URINE STAT 03/28/2023 4:57 PM EST URINALYSIS, REFLEX TO MICROSCOPIC STAT 03/28/2023 4:57 PM EST RESPIRATORY PATHOGEN PANEL, PCR STAT 03/28/2023 4:48 PM EST DIFFERENTIAL, AUTOMATED STAT 03/28/2023 4:47 PM EST TROPONIN T, HIGH SENSITIVITY STAT 03/28/2023 4:47 PM EST COMPREHENSIVE METABOLIC PANEL STAT 03/28/2023 4:47 PM EST CBC STAT 03/28/2023 4:47 PM EST ETHANOL, MEDICAL STAT 03/28/2023 4:47 PM EST CBC STAT 03/28/2023 4:47 PM EST EXTRA URINE DUFF TOP Routine 03/28/2023 4:43 PM EST EXTRA TUBES Routine 03/28/2023 4:[address] HEAD/BRAIN WO CONTRAST STAT 03/28/2023 4:15 PM EST documented in this encounter Results * GLUCOSE METER, POINT OF CARE (03/29/2023 7:46 AM EST) Glucose Meter 116 70 - 120 mg/dL 03/29/2023 7:48 AM EST LABORATORY [facility] Blood Whole blood specimen / Unknown 03/29/2023 7:46 AM EST 03/29/2023 7:48 AM EST Betty Gee DO LAB POINT OF CARE TEST DOCKED DEVICE UNSOLICITED RESULTS Performing Organization Address City/[facility]/ZIP Co de Phone Number LABORATORY [address] [address] * GLUCOSE METER, POINT OF CARE (03/29/2023 12:29 AM EST) Glucose Meter 113 70 - 120 mg/dL 03/29/2023 12:36 AM EST LABORATORY [facility] Blood Whole blood specimen / Unknown 03/29/2023 12:29 AM EST 03/29/2023 12:36 AM EST Betty Gee DO LAB POINT OF CARE TEST DOCKED DEVICE UNSOLICITED RESULTS Performing Organization Address City/[facility]/ZIP Co de Phone Number LABORATORY [address] [address] * (ABNORMAL) MICROSCOPIC EXAM, URINE (03/28/2023 4:57 PM EST) RBC, Urine 3-5(A) 0 - 2 /HPF 03/28/2023 5:31 PM EST LABORATORY [facility] WBC, Urine 0-2 0 - 2 /HPF 03/28/2023 5:31 PM EST LABORATORY [facility] Bacteria, Urine 26-50(A) 0 - 25 /HPF 03/28/2023 5:31 PM EST LABORATORY [facility] Mucus, Urine Many(A) None /HPF 03/28/2023 5:31 PM EST LABORATORY [facility] Sperm, Urine Present(A) None /HPF 03/28/2023 5:31 PM EST LABORATORY [facility] Urine Non-blood Collection / Unknown 03/28/2023 4:57 PM EST 03/28/2023 5:21 PM EST Betty Gee DO LAB URINE ORDERABL ES LABORATORY [address] [address] * (ABNORMAL) URINALYSIS, REFLEX TO MICROSCOPIC (03/28/2023 4:57 PM EST) Color, Urine Yellow Light Yellow, Yellow, Dark Yellow 03/28/2023 5:31 PM EST LABORATORY [facility] Clarity, Urine Clear Clear 03/28/2023 5:31 PM EST LABORATORY [facility] Glucose, Urine Negative Negative mg/dL 03/28/2023 5:31 PM EST LABORATORY [facility] Bilirubin, Urine Small(A) Negative 03/28/2023 5:31 PM EST LABORATORY [facility] Ketone, Urine 40(A) Negative mg/dL 03/28/2023 5:31 PM EST LABORATORY [facility] Specific Shock, Urine 1.032(H) 1.003 - 1.030 03/28/2023 5:31 PM EST LABORATORY [facility] Blood, Urine Trace(A) Negative 03/28/2023 5:31 PM EST LABORATORY [facility] pH, Urine 5.5 5.0 - 7.5 Units 03/28/2023 5:31 PM EST LABORATORY [facility] Protein, Urine Trace(A) Negative mg/dL 03/28/2023 5:31 PM EST LABORATORY [facility] Urobilinogen, Urine 0.2 0.2, 1.0 mg/dL 03/28/2023 5:31 PM EST LABORATORY [facility] Nitrite, Urine Negative Negative 03/28/2023 5:31 PM EST LABORATORY [facility] Esterase, Urine Negative Negative 03/28/2023 5:31 PM EST LABORATORY [facility] Urine Non-blood Collection / Unknown 03/28/2023 4:57 PM EST 03/28/2023 5:21 PM EST Betty Gee DO LAB URINE ORDERABL ES LABORATORY [address] [address] * (ABNORMAL) TOXICOLOGY URINE SCREEN CUP W/ CONFIRMATION ([facility] AND [facility] ONLY) (03/28/2023 4:57 PM EST) Pathologist [facility] Amphetamines Screen, U Negative Negative 03/28/2023 5:31 PM EST LABORATORY [facility] Barbiturates Screen, U Negative Negative 03/28/2023 5:31 PM EST LABORATORY [facility] Benzodiazepines Screen, U Positive(A) Negative 03/28/2023 5:31 PM EST LABORATORY [facility] Cannabinoids Screen, U Positive(A) Negative 03/28/2023 5:31 PM EST LABORATORY [facility] Cocaine Metabolite Screen, U Negative Negative 03/28/2023 5:31 PM EST LABORATORY [facility] Methadone Screen, U Negative Negative 03/28/2023 5:31 PM EST LABORATORY [facility] Morphine/Codeine Screen, U Negative Negative 03/28/2023 5:31 PM EST LABORATORY [facility] Oxycodone Screen, U Negative Negative 03/28/2023 5:31 PM EST LABORATORY [facility] Urine Non-blood Collection / Unknown 03/28/2023 4:57 PM EST 03/28/2023 5:21 PM EST Narrative LABORATORY [facility] - 03/28/2023 5:31 PM EST Cutoff Concentrations: Drug Level Amphetamines 500 ng/mL Barbiturates 300 ng/mL Benzodiazepines 300 ng/mL Cannabinoids 50 ng/mL Cocaine Metabolite 300 ng/mL Morphine / Codeine 300 ng/mL Methadone 300 ng/mL Oxycodone 100 ng/mL Screening results are presumptive and can only be used for medical purposes. Positive screening results are reflexed to confirmatory testing. Devi Marlen DO LAB URINE ORDERABL ES LABORATORY [facility] [address] [place] [address] * (ABNORMAL) RESPIRATORY PATHOGEN PANEL, PCR (03/28/2023 4:48 PM EST) Pathologist [facility] Adenovirus by PCR Negative Negative 023 6:00 PM EST LABORATORY [facility] Coronavirus 229E by PCR Negative Negative 03/28/2023 6:00 PM EST LABORATORY [facility] Coronavirus HKU1 by PCR Negative Negative 03/28/2023 6:00 PM EST LABORATORY [facility] Coronavirus NL63 by PCR Negative Negative 03/28/2023 6:00 PM EST LABORATORY [facility] Coronavirus OC43 by PCR Negative Negative 03/28/2023 6:00 PM EST LABORATORY [facility] Coronavirus SARS-CoV-2 by PCR Negative Negative 03/28/2023 6:00 PM EST LABORATORY [facility] Human Metapneumovirus by PCR Negative Negative 03/28/2023 6:00 PM EST LABORATORY [facility] Rhinovirus/Enterov irus by PCR Negative Negative 03/28/2023 6:00 PM EST LABORATORY [facility] Influenza A Virus by PCR Negative Negative 03/28/2023 6:00 PM EST LABORATORY [facility] Influenza B Virus by PCR Negative Negative 03/28/2023 6:00 PM EST LABORATORY [facility] Parainfluenza Virus 1 by PCR Negative Negative 03/28/2023 6:00 PM EST LABORATORY [facility] Parainfluenza Virus 2 by PCR Negative Negative 03/28/2023 6:00 PM EST LABORATORY [facility] Parainfluenza Virus 3 by PCR Negative Negative 03/28/2023 6:00 PM EST LABORATORY [facility] Parainfluenza Virus 4 by PCR Positive(A) Negative 03/28/2023 6:00 PM EST LABORATORY [facility] Comment: Parainfluenza virus 4 detected by PCR (amplified probe). Respiratory Syncytial Virus by PCR Negative Negative 03/28/2023 6:00 PM EST LABORATORY [facility] Bordetella pertussis by PCR Negative Negative 03/28/2023 6:00 PM EST LABORATORY [facility] Chlamydia pneumoniae by PCR Negative Negative 03/28/2023 6:00 PM EST LABORATORY [facility] Mycoplasma pneumoniae by PCR Negative Negative 03/28/2023 6:00 PM EST LABORATORY [facility] Bordetella parapertussis by PCR Negative Negative 03/28/2023 6:00 PM EST LABORATORY [facility] Comment: The primers that detect Rhinovirus may cross react with some Enterorviruses. The validation of bronchial specimens, tracheal aspirates, and throats for this assay was developed and performance characteristics determined by [employer]. The validation of alternate specimen types has not been cleared or approved by the U.S. Food and Drug Administration (FDA). It has been determined that such clearance or approval is not necessary. Upper Respiratory Mid-turbinate nasal swab / Unknown Non-blood Collection / Unknown 03/28/2023 4:48 PM EST 03/28/2023 4:56 PM EST Betty Gee DO LAB MICRO - GENERA L ORDERABLES Performing Organization Address [facility] Co de Phone Number LABORATORY [address] [phone] * TROPONIN T, HIGH SENSITIVITY (03/28/2023 4:47 PM EST) Pathologist [facility] Troponin T, High Sensitivity 7 <=22 ng/L 03/28/2023 5:18 PM EST LABORATORY [facility] Blood Venous blood specimen / Unknown Venipuncture / Unknown 03/28/2023 4:47 PM EST 03/28/2023 4:56 PM EST Betty Gee [employer] LAB BLOOD ORDERABL ES Performing Organization Address [facility] Co de Phone Number LABORATORY [address] [address] * (ABNORMAL) DIFFERENTIAL, AUTOMATED (03/28/2023 4:47 PM EST) WBC 12.02(H) 4.00 - 10.80 K/uL 03/28/2023 5:03 PM EST LABORATORY [facility] Neutrophils % 76.4(H) 40.0 - 75.0 % 03/28/2023 5:03 PM EST LABORATORY [facility] Lymphocytes % 13.1(L) 18.0 - 42.0 % 03/28/2023 5:03 PM EST LABORATORY [facility] Monocytes % 9.1 1.0 - 11.0 % 03/28/2023 5:03 PM EST LABORATORY [facility] Eosinophils % 1.0 0.0 - 6.0 % 03/28/2023 5:03 PM EST LABORATORY [facility] Basophils % 0.4 0.0 - 2.0 % 03/28/2023 5:03 PM EST LABORATORY [facility] Absolute Neutrophils 9.19(H) 1.80 - 7.70 K/uL 03/28/2023 5:03 PM EST LABORATORY [facility] Absolute Lymphocytes 1.57 1.00 - 4.80 K/ul 03/28/2023 5:03 PM EST LABORATORY [facility] Absolute Monocytes 1.09 0.00 - 1.10 K/uL 03/28/2023 5:03 PM EST LABORATORY [facility] Absolute Eosinophils 0.12 0.00 - 0.70 K/uL 03/28/2023 5:03 PM EST LABORATORY [facility] Absolute Basophils 0.05 0.00 - 0.20 K/uL 03/28/2023 5:03 PM EST LABORATORY [facility] Blood Venous blood specimen / Unknown Venipuncture / Unknown 03/28/2023 4:47 PM EST 03/28/2023 4:56 PM EST Betty Gee DO LAB BLOOD ORDERABL ES LABORATORY [address] [address] * (ABNORMAL) CBC (03/28/2023 4:47 PM EST) WBC 12.02(H) 4.00 - 10.80 K/uL 03/28/2023 5:03 PM EST LABORATORY [facility] RBC 5.72 4.50 - 5.25 M/uL 03/28/2023 5:03 PM EST LABORATORY [facility] HGB 16.7 14.0 - 16.8 g/dL 03/28/2023 5:03 PM EST LABORATORY [facility] HCT 50.4(H) 40.0 - 48.4 % 03/28/2023 5:03 PM EST LABORATORY [facility] MCV 88.1 82.0 - 99.5 fL 03/28/2023 5:03 PM EST LABORATORY [facility] MCH 29.2 27.0 - 34.0 pg 03/28/2023 5:03 PM EST LABORATORY [facility] MCHC 33.1 32.0 - 36.0 g/dL 03/28/2023 5:03 PM EST LABORATORY [facility] RDW 13.8 11.5 - 15.5 % 03/28/2023 5:03 PM EST LABORATORY [facility] PLT 255 140 - 400 K/uL 03/28/2023 5:03 PM EST LABORATORY [facility] MPV 10.2 6.6 - 11.1 fL 03/28/2023 5:03 PM EST LABORATORY [facility] Blood Venous blood specimen / Unknown Venipuncture / Unknown 03/28/2023 4:47 PM EST 03/28/2023 4:56 PM EST Betty Murcia Gee DO LAB BLOOD ORDERABL ES Performing Organization Address City/[facility]/ZIP Co de Phone Number LABORATORY [address] [phone] * ETHANOL, MEDICAL (03/28/2023 4:47 PM EST) Pathologist [facility] ETHANOL, MEDICAL Negative Negative 03/28/2023 5:17 PM EST LABORATORY [facility] Blood Venous blood specimen / Unknown Venipuncture / Unknown 03/28/2023 4:47 PM EST 03/28/2023 4:56 PM EST Betty Murcia [employer] DO LAB BLOOD ORDERABL ES LABORATORY [address] [address] * (ABNORMAL) COMPREHENSIVE METABOLIC PANEL (03/28/2023 4:47 PM EST) Pathologist [facility] BUN 16 6 - 20 mg/dL 03/28/2023 5:17 PM EST LABORATORY [facility] Creatinine 0.8 0.6 - 1.2 mg/dL 03/28/2023 5:17 PM EST LABORATORY [facility] Estimated Glomerular Filtration Rate >90 >=60 mL/min 03/28/2023 5:17 PM EST LABORATORY [facility] Comment:eGFR is calculated b ased on the CKD-EPI 2020 equation Sodium 134(L) 135 - 146 mmol/L 03/28/2023 5:17 PM EST LABORATORY [facility] Potassium 3.9 3.5 - 5.1 mmol/L 03/28/2023 5:17 PM EST LABORATORY [facility] Chloride 101 98 - 107 mmol/L 03/28/2023 5:17 PM EST LABORATORY [facility] CO2 22 22 - 32 mmol/L 03/28/2023 5:17 PM EST LABORATORY [facility] Anion Gap 11 7 - 15 mmol/L 03/28/2023 5:17 PM EST LABORATORY [facility] Glucose 116 70 - 120 mg/dL 03/28/2023 5:17 PM EST LABORATORY [facility] Albumin 3.8 3.8 - 5.0 g/dL 03/28/2023 5:17 PM EST LABORATORY [facility] AST 18 10 - 50 U/L 03/28/2023 5:17 PM EST LABORATORY [facility] Alkaline Phosphatase 122 35 - 130 U/L 03/28/2023 5:17 PM EST LABORATORY [facility] Bilirubin, Total 0.3 <=1.2 mg/dL 03/28/2023 5:17 PM EST LABORATORY [facility] Calcium 9.2 8.4 - 10.2 mg/dL 03/28/2023 5:17 PM EST LABORATORY [facility] Protein 7.4 6.0 - 8.3 g/dL 03/28/2023 5:17 PM EST LABORATORY [facility] ALT 25 10 - 50 U/L 03/28/2023 5:17 PM EST LABORATORY [facility] Blood Venous blood specimen / Unknown Venipuncture / Unknown 03/28/2023 4:47 PM EST 03/28/2023 4:56 PM EST Betty Gee DO LAB BLOOD ORDERABL ES LABORATORY [place] [id number] [place] [address] * EXTRA URINE DUFF TOP (03/28/2023 4:43 PM EST) Urine Urine specimen / Unknown 03/28/2023 4:43 PM EST 03/28/2023 5:22 PM EST Betty Gee DO LAB URINE ORDERABL ES Performing Organization Address City/State/[facility] Co de Phone Number LABORATORY [address] [phone] * CT HEAD/BRAIN WO CONTRAST (03/28/2023 4:15 PM EST) Anatomical Region Laterality Modality Head Computed Tomogra phy 03/28/2023 4:09 PM EST Impressions 03/28/2023 4:41 PM EST IMPRESSION: No acute intracranial abnormality. THIS DOCUMENT HAS BEEN ELECTRONICALLY SIGNED BY SKINNY WHALEY MD Narrative 03/28/2023 4:41 PM EST PROCEDURE INFORMATION: Exam: CT Head Without Contrast Exam date and time: 03/28/2023 4:09 PM Age: 48 years old Clinical indication: Speech disturbance; Unspecified; Additional info: Difficultly speaking TECHNIQUE: Imaging protocol: Computed tomography of the head without contrast. Radiation optimization: All CT scans at this facility use at least one of these dose optimization techniques: automated exposure control; mA and/or kV adjustment per patient size (includes targeted exams where dose is matched to clinical indication); or iterative reconstruction. REPORTING DATA: Count of CT and Cardiac NM exams in prior 12 months: This patient has received 0 known CTs and 0 known cardiac nuclear medicine studies in the 12 months prior to the current study. COMPARISON: No relevant prior studies available. FINDINGS: Brain: No acute intracranial hemorrhage, cerebral edema, or midline shift. Cerebral ventricles: No hydrocephalus. Paranasal sinuses: There is no acute sinusitis. Mastoid air cells: Visualized mastoid air cells are well aerated. Orbital cavities: The visualized orbits appear unremarkable. Bones/joints: No acute fracture. Soft tissues: Unremarkable. Procedure Note Skinny Whaley MD - 03/28/2023 PROCEDURE INFORMATION: Exam: CT Head Without Contrast Exam date and time: 03/28/2023 4:09 PM Age: 48 years old Clinical indication: Speech disturbance; Unspecified; Additional info: Difficultly speaking TECHNIQUE: Imaging protocol: Computed tomography of the head without contrast. Radiation optimization: All CT scans at this facility use at least one ofthese dose optimization techniques: automated exposure control; mA and/or kV adjustment per patient size (includes targeted exams where dose is matchedto clinical indication); or iterative reconstruction. REPORTING DATA: Count of CT and Cardiac NM exams in prior 12 months: This patient hasreceived 0 known CTs and 0 known cardiac nuclear medicine studies in the 12 monthsprior to the current study. COMPARISON: No relevant prior studies available. FINDINGS: Brain: No acute intracranial hemorrhage, cerebral edema, or midline shift. Cerebral ventricles: No hydrocephalus. Paranasal sinuses: There is no acute sinusitis. Mastoid air cells: Visualized mastoid air cells are well aerated. Orbital cavities: The visualized orbits appear unremarkable. Bones/joints: No acute fracture. Soft tissues: Unremarkable. IMPRESSION IMPRESSION: No acute intracranial abnormality. THIS DOCUMENT HAS BEEN ELECTRONICALLY SIGNED BY SKINNY WHALEY MD Betty Gee DO RAD CT documented in this encounter Visit Diagnoses Diagnosis Anxiety Anxiety state, unspecified Severe episode of recurrent major depressive disorder, with psychotic features (HCC) documented in this encounter Administered Medications Inactive Administered Medications - up to 3 most recent administrations Medication Order MAR Action Action Date Dose Rate Site busPIRone (Buspar) tab 10 mg 10 mg, Oral, TID(AM/NOON/HS), First dose on Tue03/28/23 at 2200, Until Discontinued Given 03/29/2023 7:51 AM EST 10 mg Given 03/29/2023 12:33 AM EST 10 mg LORAzepam (Ativan) tab 0.5 mg 0.5 mg, Oral, ONCE, On Tue03/28/23 at 1645, For 1 dose Given 03/28/2023 4:42 PM EST 0.5 mg metFORMIN ER (Glucophage XR) 500 mg 500 mg, Oral, BID (.AM/PM), First dose on Tue03/28/23 at 2100, Until Discontinued, METFORMIN SHOULD BE HELD FOR 24 HRS BEFORE AND 48 HRS AFTER PROCEDURES THAT REQUIRE CONTRAST MEDIUM !!!!! Use of Metformin in patients with Low GFR puts the patient at risk for adverse effects. - Please discontinue if GFR is less than 30. - Continue with caution, consider dosage reduction if GFR is between 30-45. - Do not initiate therapy in patients with GFR less than 45 Swallow tablet whole. Do NOT crush, cut or chew tablet. Given 03/29/2023 7:52 AM EST 500 mg Given 03/29/2023 12:33 AM EST 500 mg pantoprazole (Protonix) tab 40 mg 40 mg, Oral, BEFORE BREAKFAST, First dose on Tue03/29/23 at 0745, Until Discontinued, This med should NOT be Crushed or Chewed Given 03/29/2023 7:51 AM EST 40 mg sertraline (Zoloft) tab 50 mg 50 mg, Oral, Daily(AM), First dose on Tue03/29/23 at 0900, Until Discontinued Given 03/29/2023 7:52 AM EST 50 mg traZODone (Desyrel) tab 100 mg 100 mg, Oral, ONCE, On Tue03/29/23 at 0100, For 1 dose Given 03/29/2023 12:33 AM EST 100 mg documented in this encounter Active and Recently Administered Medications Times are shown in EST. Scheduled Medication Order 03/27/2023 03/28/2023 03/29/2023 busPIRone (Buspar) tab 10 mg 10 mg, Oral, TID(AM/NOON/HS), First dose on Tue03/28/23 at 2200, Until Discontinued 0033 (Given - Provid er: Nydia Garcia RN)0751 (Given - Provider: MANUEL Pride) insulin aspart (NovoLOG) inj Subcutaneous, W/MEALS AND HS, First dose on Tue03/28/23 at 2200, Until Discontinued, MEDIUM DOSE (Usual starting dose): Sliding Scale Correctional insulin may be given if the patient is NPO. Dose based on standard build from Insulin Calculator. Do not modify insulin doses in administration instructions! , Glucose less than 70 instructions: Obtain STAT lab blood glucose and call covering provider., Glucose 80-150 (units): 0, Glucose 151-200 (units): 2, Glucose 201-250 (units): 4, Glucose 251-300 (units): 6, Glucose greater than 300 (units): 8, Glucose greater than 300 instructions: Give suggested insulin dose and call covering provider. 2200 (Not Given - Provider: Nydia Garcia RN - Reason: Other- Please add reason in Comments - Comment: FBS 113) 0800 (Not Given - Provider: MANUEL rPide - Reason: Parameter(s) Not Met) LORAzepam (Ativan) tab 0.5 mg (COMPLETED) 0.5 mg, Oral, ONCE, On Tue03/28/23 at 1645, For 1 dose 1642 (Given - Provider: Kay Hu RN) metFORMIN ER (Glucophage XR) 500 mg 500 mg, Oral, BID (.AM/PM), First dose on Tue03/28/23 at 2100, Until Discontinued, METFORMIN SHOULD BE HELD FOR 24 HRS BEFORE AND 48 HRS AFTER PROCEDURES THAT REQUIRE CONTRAST MEDIUM !!!!! Use of Metformin in patients with Low GFR puts the patient at risk for adverse effects. - Please discontinue if GFR is less than 30. - Continue with caution, consider dosage reduction if GFR is between 30-45. - Do not initiate therapy in patients with GFR less than 45 Swallow tablet whole. Do NOT crush, cut or chew tablet. 0033 (Given - Provid er: Nydia Garcia RN)0752 (Given - Provider: MANUEL Pride) pantoprazole (Protonix) tab 40 mg 40 mg, Oral, BEFORE BREAKFAST, First dose on Tue03/29/23 at 0745, Until Discontinued, This med should NOT be Crushed or Chewed 0751 (Given - Provid er: MANUEL Pride) sertraline (Zoloft) tab 50 mg 50 mg, Oral, Daily(AM), First dose on Tue03/29/23 at 0900, Until Discontinued 075 (Given - Provid er: MANUEL Pride) traZODone (Desyrel) tab 100 mg (COMPLETED) 100 mg, Oral, ONCE, On Tue03/29/23 at 0100, For 1 dose 0033 (Given - Provid er: Nydia Garcia RN) PRN Medication Order 03/27/2023 03/28/2023 03/29/2023 dextrose 50 % inj 25 mL 25 mL, IV Push, PRN Hypoglycemia, Other, For blood glucose 54 - 69 mg/dL or 70 - 100 mg/dL with symptoms AND patient is unresponsive, NPO, OR unable to swallow, Starting on Tue03/28/23 at 191, Until Tue03/29/23 at 1337, Administer IV. Recheck blood glucose after 15 minutes. Notify provider. dextrose 50 % inj 50 mL 50 mL, IV Push, PRN Hypoglycemia, Other, For blood glucose below 54 mg/dL AND patient unresponsive, NPO, OR unable to swallow, Starting on Tue03/28/23 at 191, Until Tue03/29/23 at 1337, Administer IV. Recheck blood glucose in 15 minutes. Notify provider. glucagon (Glucagen) inj 1 mg 1 mg, Intramuscular, PRN Hypoglycemia, Other, If patient is unresponsive, or NPO and has no IV access, Starting on Tue03/28/23 at 1910, Until Tue03/29/23 at 1337, NPO and no IV access with either 1) blood glucose less than 100 mg/dL and symptomatic OR 2) blood glucose less than 70 mg/dL and asymptomatic Glucose (Glutose 15) 40 % gel 15 g of glucose 15 g of glucose, Oral, PRN Hypoglycemia (low sugar), Other, For blood glucose 54 - 69 mg/dL or 70 - 100 mg/dL with symptoms AND patient alert WITH difficulty chewing/swallowing, Starting on Tue03/28/23 at 191, Until Tue03/29/23 at 1337, Administer gel. Recheck blood glucose after 15 minutes. Notify provider. 37.5 gram tube = 15 grams glucose = 1 each Glucose (Glutose 15) 40 % gel 30 g of glucose 30 g of glucose, Oral, PRN Hypoglycemia (low sugar), Other, For blood glucose below 54 mg/dL AND patient alert WITH difficulty chewing/swallowing, Starting on Tue03/28/23 at 191, Until Tue03/29/23 at 1337, Administer gel. Recheck blood glucose after 15 minutes. Notify provider. 37.5 gram tube = 15 grams glucose = 1 each glucose chew tab 16 g 16 g, Oral, PRN Hypoglycemia, Other, For blood glucose 54 - 69 mg/dL or 70 - 100 mg/dL with symptoms and patient alert without difficulty chewing/swallowing., Starting on Tue03/28/23 at 191, Until Tue03/29/23 at 1337 LORazepam (Ativan) tab 1 mg 1 mg, Oral, Q8H PRN Anxiety, Starting on 03/28/23 at 1910, Until 03/29/23 at 1337 documented in this encounter Additional Health Concerns Infection Onset Date Last Indicated Resolved Time Respiratory Rule-Out 03/28/2023 03/28/2023 023 6:00 PM EST COVID-19 Rule-Out 03/28/2023 03/28/2023 03/28/2023 6:00 PM EST Parainfluenza Virus 03/28/2023 03/28/2023 documented as of this encounter Care Teams General Cargo Clerk Relationship Specialty Start Date End Date Venecia Cabrera PA-C [address], [place] [phone] PCP - General Physician Drywall Application Supervisor 05/27/22 documented as of this encounter
--- OUTSIDE RECORDS SUMMARY | 2023-04-01 02:00 | External Medical Summary ---
Author Name Unknown Address Unknown Organization [id number]:[facility] - [address] [place] [id number] Laboratory Report Ordering Provider Test Date Status [...] 16:57:07 Negative Negative Final Performing Location [facility] - [address] [place] [id number]
--- NOTE | 2023-05-26 12:44 | Coding Query ---
A supporting diagnosis is required for the test/procedure performed on this patient in order for us to be reimbursed by the patient's insurance. Please provide a supporting diagnosis for the following test/procedure listed below next to the test name along with your signature. *If there is no additional diagnosis for this patient that would support the following test/procedure please document that below next to the test/procedure. Test(s)/Procedure(s) that require a supporting diagnosis: * 89268 GASTROINTESTINAL PANEL DIAGNOSIS: diarrhea * [id number] MRA HEAD AND NECK DIAGNOSIS: transient aphasia Provider Signature: JNO Date: _06/01/23 Thank you Donna Masters [facility] Information Management Once completed, please kindly fax back to [phone] For questions please call [phone] [facility]
== END 2023-03-31 16:13 | disposition home or self-care (01) ==
LOC: ED 19:54 → EDINP 19:54 → 2W 03-30 02:28